=== PATIENT | female | born 1965 | race Caucasian/White ===

== ENCOUNTER 2021-01-03 09:47 | Outpatient (REF) | payer OTHER, SELFPAY ==
--- NOTE | ~2021-01-03 | MM_ITS ---
EXAMINATION: MM SCREENING DIGITAL BREAST TOMOSYNTHESIS, BILATERAL CLINICAL INFORMATION: Screening. Asymptomatic. The lifetime risk of breast cancer based on the Tyrer-Cuzick Model is 10.0%. COMPARISON: Mammography: July 21, 2019 and studies dating back to January 16, 2015 TECHNIQUE: Digital breast tomosynthesis is performed in both the craniocaudal and mediolateral oblique views along with computer-aided detection (CAD). Synthesized 2D images are generated from the tomosynthesis. Additional right breast exaggerated craniocaudal view performed. FINDINGS: The breasts are heterogeneously dense, which may obscure small masses (ACR BI-RADS breast composition Category c). There are no significant masses, abnormal calcifications, or other abnormalities. MM/MM tomosynthesis screening BI IMPRESSION: There are no significant changes from prior study. ASSESSMENT: BI-RADS 1: Negative RECOMMENDATION: Routine annual mammography screening. This patient's information was entered into a reminder system with a target due date for their next mammogram.
== END 2021-01-03 09:48 | disposition home or self-care (01) ==
LOC: HO.MAMMO 09:47
PROVIDERS: PCP Physician Assistant; Visit Provider Family Medicine
DX: Z12.31 Encounter for screening mammogram for malignant neoplasm of breast (principal)
CPT/HCPCS: 77063; 77067

== ENCOUNTER 2021-09-06 06:24 | Outpatient (REF) | payer OTHER, SELFPAY ==
[2021-09-06 06:50] LABS: MANUAL DIFF FLAG NO
[2021-09-06 07:37] LABS: Basophils Absolute Auto 0.1 X10*3/uL (0.0-0.2); Basophils Percent Auto 1.4 % (0-2); Eosinophils Absolute Auto 0.2 X10*3/uL (0.0-0.4); Eosinophils Percent Auto 5.1 % (0-4); Hematocrit 34.8 % (37.0-47.0); Hemoglobin 10.9 g/dl (12.0-16.0); Imm Gran Abs Auto 0.01 X10*3/uL (0.00-0.03); Imm Gran Pct Auto 0.3 % (0.0-0.4); Lymphocytes Absolute Auto 1.5 X10*3/uL (1.2-4.9); Lymphocytes Percent Auto 42.4 % (20-40); Mean Corpuscular HGB Conc 31.3 g/dl (31.0-35.0); Mean Corpuscular Hemoglobin 29.2 pg (27.0-33.0); Mean Corpuscular Volume 93.3 fL (80.0-98.0); Mean Platelet Volume 8.6 fL (9.4-12.3); Monocytes Absolute Auto 0.4 X10*3/uL (0.1-1.2); Monocytes Percent Auto 10.5 % (2-11); Neutrophils Absolute Auto 1.4 x10*3/uL (2.0-8.3); Neutrophils Percent Auto 40.3 % (45-73); Platelet Count 339 X10*3/uL (160-400); Red Blood Count 3.73 X10*6/uL (4.20-5.50); Red Cell Distribution Width 12.4 % (11.0-16.0); White Blood Count 3.5 X10*3/uL (4.8-10.8)
[2021-09-06 07:44] LABS: Estimated Average Glucose 105 mg/dL; Hemoglobin A1c % 5.3 %
[2021-09-06 07:58] LABS: Alanine Aminotransferase 36 U/L (0-31); Albumin Level 3.9 g/dL (3.5-5.0); Alkaline Phosphatase 82 U/L (39-117); Anion Gap 10 (12-20); Aspartate Amino Transferase 34 U/L (5-31); Bilirubin Total 0.4 mg/dL (0.0-1.0); Blood Urea Nitrogen 25 mg/dL (9-16); Calcium 9.3 mg/dL (8.4-10.2); Carbon Dioxide 27 mmol/L (22-29); Chloride 108 mmol/L (96-108); Cholesterol 272 mg/dL; Estimated Glomerular Filt Rate > 60; Glucose Fasting 90 mg/dL (60-99); HDL Cholesterol 84 mg/dL; LDL Cholesterol Calculated 175 mg/dl; Potassium 4.6 mmol/L (3.3-5.1); Sodium 140 mmol/L (135-145); Total Protein 7.2 g/dL (6.5-8.0); Triglycerides 69 mg/dL
[2021-09-06 08:16] LABS: TSH reflex Free T4 1.74 uIU/mL (0.32-4.0)
[2021-09-07 08:56] LABS: Follicle Stimulating Hormone 76.8 mIU/mL; Lutenizing Hormone 30.6 mIU/mL
== END 2021-09-06 06:25 | disposition home or self-care (01) ==
LOC: HO.LAB 06:24
PROVIDERS: PCP Family Medicine; Visit Provider Family Medicine
DX: Z00.00 Encounter for general adult medical examination without abnormal findings (principal); R73.01 Impaired fasting glucose; Z78.0 Asymptomatic menopausal state
CPT/HCPCS: 36415; 80053; 80061; 82672; 83001; 83002; 83036; 84443; 85025

== ENCOUNTER 2021-10-09 13:40 | Outpatient (REF) | payer OTHER, SELFPAY ==
--- NOTE | ~2021-10-09 | MM_ITS ---
EXAMINATION: BONE DENSITOMETRY CLINICAL INDICATION: Encounter for screening for osteoporosis. Postmenopausal. COMPARISON: None (current study represents initial baseline exam). TECHNIQUE: Using a [employer] DXA System (software version: 13.1) manufactured by [employer], dual-energy x-ray absorptiometry was performed of the lumbar spine and left hip. The images are of good technical quality. Summary results are attached. FINDINGS: AP SPINE L1-L4: BMD 1.021 g/cm2, Z-score -1.0, T-score -1.3, osteopenia. LEFT FEMUR, NECK: BMD 0.853 g/cm2, Z-score -0.6, T-score -1.3, osteopenia. LEFT FEMUR, TOTAL: BMD 0.978 g/cm2, Z-score 0.1, T-score -0.2, normal. IDENTIFIED RISK FACTORS: Menopause. HISTORY OF FRACTURE: None listed. MEDICATIONS: Vitamin D. MM/XR DEXA axial skeleton IMPRESSION: 1. DIAGNOSIS: Osteopenia based on the lowest T-score value of -1.3 in the lumbar spine femoral neck applying World Health Organization criteria. 2. 10-YEAR FRACTURE RISK PREDICTION, FRAX: Major osteoporotic fracture (clinical spine, forearm, hip or shoulder) 6.6%. Hip fracture 0.4%. 3. Treatment Recommendations: NOF guidelines recommend consideration for treatment in postmenopausal women and men age 50 and older presenting with the following: -A hip or vertebral (clinical or morphometric) fracture. -T-score less than or equal to -2.5 at the femoral neck or spine after appropriate evaluation to exclude secondary causes. -Low bone mass at the hip or spine and a 10-year fracture probability by FRAX of greater than or equal to 3% for hip fracture or greater than or equal to 20% for major osteoporotic fracture based on the [place] adapted WHO algorithm. 4. Other Recommendations: All treatment decisions require clinical judgment and consideration of individual patient factors, including patient preferences, comorbidities, previous drug use, risk factors not captured in the FRAX model (e.g. frailty, falls, vitamin D deficiency, increased bone turnover, interval significant decline in bone density) and possible under or overestimation of fracture risk by FRAX. Additional medical evaluation for secondary cause of low bone mineral density may be appropriate. FUTURE SCAN RECOMMENDATION: People with diagnosed cases of osteoporosis or at high risk for fracture should have regular bone mineral density tests. For patients eligible for Medicare, routine testing is allowed once every 2 years. The testing frequency can be increased to one year for patients who have rapidly progressing disease, those who are receiving or discontinuing medical therapy to restore bone mass, or have additional risk factors.
== END 2021-10-09 13:41 | disposition home or self-care (01) ==
LOC: HO.MAMMO 13:40
PROVIDERS: PCP Family Medicine; Visit Provider Family Medicine
DX: Z13.820 Encounter for screening for osteoporosis (principal); Z78.0 Asymptomatic menopausal state
CPT/HCPCS: 77080

== ENCOUNTER 2021-11-05 08:15 | Outpatient (REF) | payer OTHER, SELFPAY ==
--- NOTE | ~2021-11-05 | US_ITS ---
EXAMINATION: US ABDOMEN LIMITED WITH LIVER ELASTOGRAPHY CLINICAL INFORMATION: Abnormal serum enzyme levels. COMPARISON: None. TECHNIQUE: Real-time imaging of the abdominal viscera. Noninvasive ultrasound liver fibrosis assessment is performed using Orin Elast[employer] point quantification shear wave elastography (2D-SWE) with a C5-2 MHz transducer. Multiple elastography samples are obtained. FINDINGS: PANCREAS: Normal. The visualized pancreatic head and body are normal in appearance. The remainder of the pancreas is obscured from visualization by the overlying bowel gas. LIVER: Normal. The liver demonstrates normal size, contour and echogenicity. No focal lesion or intrahepatic biliary duct dilatation. The right lobe measures 16.6 cm in length. The left lobe measures 10.5 cm in length. Portal flow is towards the liver (hepatopetal). Shear wave liver elastography median stiffness is 1.63 m/s (reference: normal median stiffness is 1.3 m/s or less). IQR/median stiffness to assess sampling precision is 0.10 (reference: good quality data set is IQR/median stiffness of 0.15 or less). GALLBLADDER: Normal. The gallbladder is physiologically distended without evidence of stones, sludge, polyps, wall thickening or pericholecystic fluid. COMMON BILE DUCT: Normal in caliber measuring 0.4 cm in diameter. RIGHT KIDNEY: Normal. No hydronephrosis. No renal calculi or focal parenchymal lesions. The kidney measures 9.5 cm in maximum dimension. FREE FLUID: None. US/US abdomen garcia w elastography IMPRESSION: Liver elastography: In the absence of other known clinical signs, measurements rule out compensated advanced chronic liver disease. If there are known clinical signs, further testing may be needed for confirmation. REFERENCE: Society of Radiologists in Ultrasound Liver Stiffness Thresholds (2020): LIVER STIFFNESS THRESHOLDS: *Liver Stiffness equal or less than 1.3 m/s: High probability of being normal. *Liver Stiffness less than 1.7 m/s: In the absence of other known clinical signs, rules out compensated advanced chronic liver disease. *Liver Stiffness 1.7-2.1 m/s: Suggestive of compensated advanced chronic liver disease but need further test for confirmation. *Liver Stiffness over 2.1 m/s: Rules in compensated advanced chronic liver disease. *Liver Stiffness over 2.4 m/s: Suggestive of clinically significant portal hypertension. QUALITY OF DATA SET: *IQR/Median value equal or less than 0.15 implies a quality data set. *IQR/Median value over 0.15 implies a poor quality data set. SIGNIFICANT CHANGE FROM PRIOR EXAM: Significant change if liver stiffness measurement is 10% or greater from prior exam. OTHER CONSIDERATIONS: The stage of liver fibrosis may be overestimated in the setting of acute hepatitis, liver inflammation, elevated liver function tests, hepatic vascular congestion, obstructive cholestasis, non-fasting state, and infiltrative diseases such as amyloidosis and lymphoma. In some patients with NAFLD, the liver stiffness thresholds for compensated advanced chronic liver disease may be lower. In causes other than viral hepatitis and NAFLD, liver stiffness thresholds are not well established.
== END 2021-11-05 08:16 | disposition home or self-care (01) ==
LOC: HO.US 08:15
PROVIDERS: Visit Provider Family Medicine
DX: R74.8 Abnormal levels of other serum enzymes (principal)
CPT/HCPCS: 76705; 76981

== ENCOUNTER 2021-12-05 06:21 | Outpatient (REF) | payer OTHER, SELFPAY ==
[2021-12-05 06:40] LABS: MANUAL DIFF FLAG NO
[2021-12-05 07:25] LABS: Basophils Absolute Auto 0.1 X10*3/uL (0.0-0.2); Basophils Percent Auto 1.6 % (0-2); Eosinophils Absolute Auto 0.2 X10*3/uL (0.0-0.4); Eosinophils Percent Auto 4.1 % (0-4); Hematocrit 35.7 % (37.0-47.0); Hemoglobin 11.5 g/dl (12.0-16.0); Imm Gran Abs Auto 0.01 X10*3/uL (0.00-0.03); Imm Gran Pct Auto 0.3 % (0.0-0.4); Immature Retic Fraction 11.8 % (3.0-15.9); Lymphocytes Absolute Auto 1.8 X10*3/uL (1.2-4.9); Lymphocytes Percent Auto 48.2 % (20-40); Mean Corpuscular HGB Conc 32.2 g/dl (31.0-35.0); Mean Corpuscular Hemoglobin 30.2 pg (27.0-33.0); Mean Corpuscular Volume 93.7 fL (80.0-98.0); Mean Platelet Volume 8.9 fL (9.4-12.3); Monocytes Absolute Auto 0.4 X10*3/uL (0.1-1.2); Monocytes Percent Auto 9.8 % (2-11); Neutrophils Absolute Auto 1.3 x10*3/uL (2.0-8.3); Platelet Count 336 X10*3/uL (160-400); Red Blood Count 3.81 X10*6/uL (4.20-5.50); Red Cell Distribution Width 12.4 % (11.0-16.0); Retic HGB Equivalent 34.4 pg (30.0-35.0); Reticulocyte Percent 1.4 % (0.5-1.8); Reticulocytes Absolute 0.052 X10*6/uL (0.026-0.095); White Blood Count 3.7 X10*3/uL (4.8-10.8)
[2021-12-05 07:43] LABS: Alanine Aminotransferase 14 U/L (0-31); Alkaline Phosphatase 64 U/L (39-117); Anion Gap 11 (12-20); Aspartate Amino Transferase 25 U/L (5-31); Bilirubin Total 0.3 mg/dL (0.0-1.0); Blood Urea Nitrogen 17 mg/dL (9-16); Calcium 9.3 mg/dL (8.4-10.2); Carbon Dioxide 26 mmol/L (22-29); Chloride 108 mmol/L (96-108); Cholesterol 268 mg/dL; Estimated Glomerular Filt Rate 53; Glucose Random 97 mg/dL (60-115); HDL Cholesterol 80 mg/dL; LDL Cholesterol Calculated 173 mg/dl; Potassium 4.8 mmol/L (3.3-5.1); Sodium 140 mmol/L (135-145); Total Protein 7.3 g/dL (6.5-8.0); Triglycerides 75 mg/dL
== END 2021-12-05 06:22 | disposition home or self-care (01) ==
LOC: HO.LAB 06:21
PROVIDERS: PCP Family Medicine; Visit Provider Family Medicine
DX: Z00.00 Encounter for general adult medical examination without abnormal findings (principal); D64.9 Anemia, unspecified; R74.8 Abnormal levels of other serum enzymes; E78.00 Pure hypercholesterolemia, unspecified
CPT/HCPCS: 36415; 80053; 80061; 85025; 85045

== ENCOUNTER 2022-04-22 09:51 | Outpatient (REF) | payer OTHER, SELFPAY ==
[2022-04-25 03:36] LABS: HPV mRNA E6/E7 rflx Not Detected (Not Detected)
== END 2022-04-22 09:52 | disposition home or self-care (01) ==
LOC: HO.LNP 09:51
PROVIDERS: Visit Provider Obstetrics & Gynecology
DX: Z01.419 Encounter for gynecological examination (general) (routine) without abnormal findings (principal); Z11.51 Encounter for screening for human papillomavirus (HPV)
CPT/HCPCS: 87624; 88142

== ENCOUNTER 2022-06-10 06:41 | Outpatient (REF) | payer OTHER, SELFPAY ==
[2022-06-10 06:53] LABS: MANUAL DIFF FLAG NO
[2022-06-10 07:35] LABS: Basophils Absolute Auto 0.1 X10*3/uL (0.0-0.2); Basophils Percent Auto 1.6 % (0-2); Eosinophils Absolute Auto 0.1 X10*3/uL (0.0-0.4); Eosinophils Percent Auto 3.7 % (0-4); Hematocrit 34.9 % (37.0-47.0); Hemoglobin 11.2 g/dl (12.0-16.0); Imm Gran Abs Auto 0.01 X10*3/uL (0.00-0.03); Imm Gran Pct Auto 0.3 % (0.0-0.4); Lymphocytes Absolute Auto 1.6 X10*3/uL (1.2-4.9); Lymphocytes Percent Auto 42.7 % (20-40); Mean Corpuscular HGB Conc 32.1 g/dl (31.0-35.0); Mean Corpuscular Hemoglobin 29.5 pg (27.0-33.0); Mean Corpuscular Volume 91.8 fL (80.0-98.0); Mean Platelet Volume 8.7 fL (9.4-12.3); Monocytes Absolute Auto 0.4 X10*3/uL (0.1-1.2); Neutrophils Absolute Auto 1.6 x10*3/uL (2.0-8.3); Neutrophils Percent Auto 40.7 % (45-73); Platelet Count 326 X10*3/uL (160-400); Red Cell Distribution Width 12.5 % (11.0-16.0); White Blood Count 3.8 X10*3/uL (4.8-10.8)
[2022-06-10 07:55] LABS: Alanine Aminotransferase 15 U/L (0-31); Albumin Level 4.1 g/dL (3.5-5.0); Alkaline Phosphatase 64 U/L (39-117); Anion Gap 12 (12-20); Aspartate Amino Transferase 25 U/L (5-31); Bilirubin Total 0.2 mg/dL (0.0-1.0); Blood Urea Nitrogen 17 mg/dL (9-16); Calcium 9.8 mg/dL (8.4-10.2); Carbon Dioxide 25 mmol/L (22-29); Chloride 110 mmol/L (96-108); Estimated Glomerular Filt Rate > 60; Glucose Random 93 mg/dL (60-115); Iron 51 mcg/dL (30-160); Percent Iron Saturation 19 % (15-50); Potassium 4.8 mmol/L (3.3-5.1); Sodium 142 mmol/L (135-145); Total Iron Binding Capacity 275 mcg/dL (228-428); Total Protein 7.2 g/dL (6.5-8.0); Unsaturated Iron Binding 224 ug/dL
== END 2022-06-10 06:42 | disposition home or self-care (01) ==
LOC: HO.LAB 06:41
PROVIDERS: PCP Family Medicine; Visit Provider Family Medicine
DX: Z00.00 Encounter for general adult medical examination without abnormal findings (principal); D64.9 Anemia, unspecified
CPT/HCPCS: 36415; 80053; 83540; 85025

== ENCOUNTER 2022-10-03 11:09 | Outpatient (REF) | payer OTHER, SELFPAY ==
--- NOTE | ~2022-10-03 | MM_ITS ---
EXAMINATION: MM SCREENING DIGITAL BREAST TOMOSYNTHESIS, BILATERAL CLINICAL INFORMATION: Screening. Asymptomatic. The lifetime risk of breast cancer based on the Tyrer-Cuzick Model is 9%. COMPARISON: Mammography: 01/03/2021, 07/21/2019, 09/29/2016 TECHNIQUE: Digital breast tomosynthesis is performed in both the craniocaudal and mediolateral oblique views along with computer-aided detection (CAD). Synthesized 2D images are generated from the tomosynthesis. FINDINGS: There are scattered areas of fibroglandular density (ACR BI-RADS breast composition Category b). There is increased parenchymal density posterior outer right breast on CC view, likely summation artifact or incompletely compressed glandular tissue. No MLO correlate. Patient will be recalled for additional imaging. Otherwise, the breast parenchymal pattern is similar to prior studies. There are some scattered chronic asymmetries. No developing density or architectural abnormality. No significant mass or abnormal calcifications. The axilla are unremarkable. MM/MM tomosynthesis screening BI IMPRESSION: Right: -Asymmetric density posterior outer breast on CC view, likely summation artifact or incompletely compressed glandular tissue. Left: -No mammographic evidence of malignancy. ASSESSMENT: BI-RADS 0: Incomplete - Need Additional Imaging Evaluation RECOMMENDATION: 1. Additional views right breast (exaggerated CC). 2. Targeted ultrasound if warranted after review of the additional views. 3. Radiology department staff will contact the patient for additional imaging. This patient's information was entered into a reminder system with a target due date for their next mammogram.
== END 2022-10-03 11:10 | disposition home or self-care (01) ==
LOC: HO.MAMMO 11:09
PROVIDERS: PCP Family Medicine; Visit Provider Family Medicine
DX: Z12.31 Encounter for screening mammogram for malignant neoplasm of breast (principal)
CPT/HCPCS: 77063; 77067

== ENCOUNTER 2022-10-06 06:18 | Outpatient (REF) | payer OTHER, SELFPAY ==
[2022-10-06 06:25] LABS: MANUAL DIFF FLAG NO
[2022-10-06 07:44] LABS: Basophils Absolute Auto 0.1 X10*3/uL (0.0-0.2); Basophils Percent Auto 1.3 % (0-2); Eosinophils Absolute Auto 0.2 X10*3/uL (0.0-0.4); Hematocrit 35.4 % (37.0-47.0); Hemoglobin 11.3 g/dl (12.0-16.0); Imm Gran Abs Auto 0.01 X10*3/uL (0.00-0.03); Imm Gran Pct Auto 0.3 % (0.0-0.4); Lymphocytes Absolute Auto 1.9 X10*3/uL (1.2-4.9); Lymphocytes Percent Auto 48.8 % (20-40); Mean Corpuscular HGB Conc 31.9 g/dl (31.0-35.0); Mean Corpuscular Hemoglobin 29.7 pg (27.0-33.0); Mean Corpuscular Volume 93.2 fL (80.0-98.0); Mean Platelet Volume 8.8 fL (9.4-12.3); Monocytes Absolute Auto 0.4 X10*3/uL (0.1-1.2); Monocytes Percent Auto 11.6 % (2-11); NRBC Pct Auto 0.5 /100WBC (0.0-0.2); Neutrophils Absolute Auto 1.3 x10*3/uL (2.0-8.3); Platelet Count 335 X10*3/uL (160-400); Red Cell Distribution Width 12.7 % (11.0-16.0); White Blood Count 3.8 X10*3/uL (4.8-10.8)
[2022-10-06 08:12] LABS: Cholesterol 268 mg/dL; HDL Cholesterol 81 mg/dL; Iron 69 mcg/dL (30-160); LDL Cholesterol Calculated 174 mg/dl; Percent Iron Saturation 26 % (15-50); Total Iron Binding Capacity 269 mcg/dL (228-428); Triglycerides 66 mg/dL; Unsaturated Iron Binding 200 ug/dL
[2022-10-06 08:44] LABS: Vitamin B12 363 pg/mL (200-900)
== END 2022-10-06 06:19 | disposition home or self-care (01) ==
LOC: HO.LAB 06:18
PROVIDERS: PCP Family Medicine; Visit Provider Family Medicine
DX: Z00.00 Encounter for general adult medical examination without abnormal findings (principal); E53.8 Deficiency of other specified B group vitamins; D64.9 Anemia, unspecified
CPT/HCPCS: 36415; 80061; 82607; 82746; 83540; 85025

== ENCOUNTER 2022-10-14 08:24 | Outpatient (REF) | payer OTHER, SELFPAY ==
--- NOTE | ~2022-10-14 | MM_ITS ---
EXAMINATION: MM DIAGNOSTIC DIGITAL BREAST TOMOSYNTHESIS, RIGHT BREAST CLINICAL INFORMATION: Asymmetric density deep superior aspect of the right breast. COMPARISON: Mammography: 10/03/2022 and studies dating back to 01/16/2015. TECHNIQUE: Digital breast tomosynthesis is performed. 2D images are generated from the tomosynthesis. The following views are obtained: Right breast exaggerated craniocaudal view. FINDINGS: There are scattered areas of fibroglandular density (ACR BI-RADS breast composition Category b). The additional view demonstrates the tissue to spread out and have a similar appearance to prior studies. No persistent suspicious mass is appreciated. Stable circumscribed density about the anterior aspect of the right breast again seen. Results are provided to the patient at time of visit by the technologist. MM/MM tomosynthesis added views R IMPRESSION: No persistent suspicious right breast mass. ASSESSMENT: BI-RADS 1: Negative. RECOMMENDATION: Routine annual mammography screening. This patient's information was entered into a reminder system with a target due date for their next mammogram.
== END 2022-10-14 08:25 | disposition home or self-care (01) ==
LOC: HO.MAMMO 08:24
PROVIDERS: PCP Family Medicine; Visit Provider Family Medicine
DX: R92.2 Inconclusive mammogram (principal)
CPT/HCPCS: 77061; 77065

== ENCOUNTER 2023-04-28 07:30 | Outpatient (REF) | payer OTHER, SELFPAY ==
[2023-04-28 07:48] LABS: MANUAL DIFF FLAG NO
[2023-04-28 07:57] LABS: Basophils Absolute Auto 0.1 X10*3/uL (0.0-0.2); Basophils Percent Auto 1.2 % (0-2); Eosinophils Absolute Auto 0.2 X10*3/uL (0.0-0.4); Eosinophils Percent Auto 3.7 % (0-4); Hematocrit 35.9 % (37.0-47.0); Hemoglobin 11.8 g/dl (12.0-16.0); Imm Gran Abs Auto 0.01 X10*3/uL (0.00-0.03); Imm Gran Pct Auto 0.2 % (0.0-0.4); Immature Retic Fraction 6.9 % (3.0-15.9); Lymphocytes Absolute Auto 1.8 X10*3/uL (1.2-4.9); Mean Corpuscular HGB Conc 32.9 g/dl (31.0-35.0); Mean Corpuscular Hemoglobin 31.1 pg (27.0-33.0); Mean Corpuscular Volume 94.5 fL (80.0-98.0); Mean Platelet Volume 8.9 fL (9.4-12.3); Monocytes Absolute Auto 0.4 X10*3/uL (0.1-1.2); Monocytes Percent Auto 10.8 % (2-11); Neutrophils Absolute Auto 1.7 x10*3/uL (2.0-8.3); Neutrophils Percent Auto 41.1 % (45-73); Platelet Count 289 X10*3/uL (160-400); Red Cell Distribution Width 12.2 % (11.0-16.0); Retic HGB Equivalent 35.5 pg (30.0-35.0); Reticulocyte Percent 1.1 % (0.5-1.8); Reticulocytes Absolute 0.041 X10*6/uL (0.026-0.095); White Blood Count 4.1 X10*3/uL (4.8-10.8)
[2023-04-28 08:34] LABS: Alanine Aminotransferase 14 U/L (0-31); Albumin Level 4.1 g/dL (3.5-5.0); Alkaline Phosphatase 61 U/L (39-117); Anion Gap 13 (12-20); Aspartate Amino Transferase 27 U/L (5-31); Bilirubin Total 0.4 mg/dL (0.0-1.0); Blood Urea Nitrogen 10 mg/dL (9-16); Calcium 9.9 mg/dL (8.4-10.2); Carbon Dioxide 25 mmol/L (22-29); Chloride 109 mmol/L (96-108); Cholesterol 164 mg/dL (<200); Estimated Glomerular Filt Rate > 60; Glucose Fasting 93 mg/dL (60-99); HDL Cholesterol 69 mg/dL (>40); Iron 64 mcg/dL (30-160); LDL Cholesterol Calculated 83 mg/dL (<100); Percent Iron Saturation 26 % (15-50); Potassium 4.8 mmol/L (3.3-5.1); Sodium 142 mmol/L (135-145); Total Iron Binding Capacity 243 mcg/dL (228-428); Total Protein 7.6 g/dL (6.5-8.0); Triglycerides 63 mg/dL (<150); Unsaturated Iron Binding 179 ug/dL
[2023-04-28 08:51] LABS: Ferritin 65 ng/mL (10-250); TSH reflex Free T4 1.83 uIU/mL (0.32-4.0)
[2023-04-28 08:58] LABS: Appearance Urine Clear; Color Urine Yellow; Glucose Urine UA Negative (Negative); Leukocyte Esterase Urine Negative (Negative); Nitrite Urine Negative (Negative); PH 7.5 (5.0-9.0); UMIC TRIGGER UA YES; Urine Blood Small (1+) (Negative); Urine Ketones Negative (Negative); Urine Protein Negative (Neg-Trace)
[2023-04-28 08:59] LABS: Folate 11.4 ng/mL (> or = 4.0); Vitamin B12 367 pg/mL (200-900)
[2023-04-28 09:05] LABS: Bacteria Urine None Seen (None Seen); Hyaline Casts Urine 0-2 /LPF (0-2); Squamous Epithelial Cell Urine 0-2 /HPF (0-2); WBC Urine 0-5 /HPF (0-5)
[2023-04-28 09:44] LABS: Creatinine Urine 171.64 mg/dL; Microalbum/Creatinine Ratio Ur 3.4 ug/mg cr (<30)
== END 2023-04-28 07:31 | disposition home or self-care (01) ==
LOC: HO.LAB 07:30
PROVIDERS: PCP Family Medicine; Visit Provider Family Medicine
DX: Z00.00 Encounter for general adult medical examination without abnormal findings (principal); E53.8 Deficiency of other specified B group vitamins; E78.00 Pure hypercholesterolemia, unspecified; I10 Essential (primary) hypertension; D64.9 Anemia, unspecified
CPT/HCPCS: 36415; 80053; 80061; 81001; 81003; 82043; 82570; 82607; 82728; 82746; 83540; 84443; 85025; 85045

== ENCOUNTER 2023-06-09 12:25 | Outpatient (AMB) | payer OTHER, SELFPAY ==
[2023-06-09 12:43] VITALS: BP 112/72; BMI 28.6
--- NOTE | 2023-06-09 12:43 | A.OFFVIS_ITS ---
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 No complaints. Last Pap/HPV was negative in 04/19 Last Mammogram was BI-RADS 1 in 10/19 Last Colonoscopy was at age of 49, the recommendation was to repeat at the age of 59 [facility] Medical History Vitamin D deficiency Exercise-induced asthma Atypical chest pain Surgical History History of tonsillectomy Family History Mother Mental problem Father Mental problem Substance abuse Social History Housing: House Alcohol intake: never Patient Tobacco Use Status: Former Tobacco user e-Cigarette/Vaping Use: Never Used Second Hand Smoke Exposure: Yes service: No Current occupational status: employed 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 Cognitive needs: No Hearing needs: No Vision needs: No Female Reproductive History Menstrual Age of Menarche: 11 Duration of menses: 3-5 days control method: none Total pregnancies: 0 History of abnormal pap smear: No (unknown) Review of Systems Const All systems reviewed & are unremarkable except as noted in HPI and below Card Reports as per HPI Resp Reports as per HPI GI Reports as per HPI and Reports no additional complaints Reports as per HPI Physical Exam Vital Signs: Last Vital Signs BP 112/72 06/09/23 12:43 BMI result Body Mass Index 28.6 Const General: cooperative, healthy appearing and comfortable Chest Chest palpation & inspection: normal inspection of the chest and normal palpation of entire chest wall Breast/axilla inspection: normal inspection of the breasts and normal inspection of the axillae Breast/axilla palpation: normal palpation of the breasts, normal palpation of the axillae and no axillary lymphadenopathy Resp Effort & Inspection: normal respiratory effort Auscultation: clear to auscultation bilaterally Percussion: percussion normal Cardio Palpation: normal PMI Rate: regular rate Rhythm: regular rhythm Heart sounds: no murmurs and no rubs Peripheral pulses: Peripheral pulses 2+ throughout GI Inspection: Yes normal to inspection Palpation (GI): Soft to palpation, nontender, no guarding, not rigid and No hepatosplenomegaly present Percussion: Yes normal to percussion Auscultation: normal bowel sounds Rectal Exam - Female: deferred General: Yes bladder normal to palpation External Female Exam: No lesion Speculum Exam - Vagina: normal appearance of the vagina, normal palpation, normal vaginal discharge and not erythematous Speculum Exam - Cervix: normal appearance of the cervix and normal palpation Bimanual exam- vagina & uterus: normal bimanual exam, normal palpation, uterine size normal, bladder normal to palpation, consistency normal and normal palpation Bimanual Exam- Adnexa, other: normal adnexae, no masses and no tenderness Assessment & Plan Assessment & Plan (1) Well woman exam: Code(s): Z01.419 - Encounter for gynecological examination (general) (routine) without abnormal findings Plan: Co testing not indicated this year. Counseled the patient about the recommended dietary allowance of 1200 mg of Calcium & 600 IU of vitamin D. Instructions given the patient to schedule next screening Mammogram in 10/20. The patient was instructed to perform monthly self-breast exams and schedule annual exam in a year. All questions answered and the patient verbalized understanding. Coding Level of Care Code Est Pt Prev Care 40-64y(65599) Diagnoses Well woman exam Z01.419
== END 2023-06-09 12:55 | disposition home or self-care (01) ==
PROVIDERS: Visit Provider Obstetrics & Gynecology
DX: Z01.419 Encounter for gynecological examination (general) (routine) without abnormal findings (principal)
CPT/HCPCS: 99396

== ENCOUNTER → 2023-06-09 12:25 | Outpatient (BNVA) | payer OTHER, SELFPAY | PROVIDERS: Visit Provider Obstetrics & Gynecology ==

== ENCOUNTER 2023-06-19 13:50 | Outpatient (AMB) | payer OTHER, SELFPAY ==
--- NOTE | 2023-06-19 13:30 | MHC.PC.OV ---
Vital Signs 06/19/23 13:32 Height 5 ft 6 in Weight 168 lb 4 oz BMI 27.2 Intake Visit Reasons: f/u labs Intake Note: Patient is ready for their phone visit to discuss labs. Patient requested SURVEY INTERVIEWER updated their weight in their chart as well. Patient reports weight to be 168.4. 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 Labs were drawn 04/28/23. Reviewed labs with pt. Ongoing mild anemia. Triglycerides 63. TC 164. LDL 83. HDL 69. She is on artovastatin 20mg. 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 Angel Tolbert, Thelma Townsend, David Francisco and colleagues, with an educational adrianna from [employer]. Review of Systems Const Denies chills, Denies fatigue, Denies fever(s), Denies headache(s) and Denies weakness ENT Denies dizziness and Denies headache(s) Card Denies dyspnea Resp Denies cough, Denies dyspnea, Denies wheezing and Denies other (shortness of breath) Musc Denies numbness and Denies tingling Neuro Denies dizziness, Denies headache(s), Denies numbness, Denies tingling and Denies weakness Psych Denies anxiety and Denies depression Endo Denies fatigue Aller/Immun Denies wheezing Physical exam (Primary Care) Tobacco/Smoking Status: Tobacco use Status Tobacco use date assessed 06/19/23 06/19/23 13:33 Patient Tobacco Use Status Former Tobacco user 06/19/23 13:33 e-Cigarette/Vaping Use Never Used 06/19/23 13:33 Thrive Assessment: Date of Thrive Assessment Date Thrive assessed 07/30/21 06/19/23 13:33 Telehealth Telehealth Location of provider rendering services: practice address Location of patient: address on file Patient Identification confirmed using: Name, : Yes Telehealth method: voice only Patient verbally consented to treatment: Yes Patient verbally consented to billing insurance company: Yes Patient informed of any privacy concerns related to visit: Yes Minutes spent on Phone/Video with Pt.: 14 Assessment and Plan Assessment & Plan (1) Mild anemia: Code(s): D64.9 - Anemia, unspecified Plan: Mild?but?improving?normocytic?anemia Iron?stores?are?normal?but?she?is?taking?iron Encouraged?her?to?continue?this We?can?follow (2) Hypercholesterolemia: Code(s): E78.00 - Pure hypercholesterolemia, unspecified Plan: Lipids?all?within?normal?limits?now?on?atorvastatin Continue?atorvastatin Coding Level of Care Code Tele Est Pt Level 2 (51975) Diagnoses Mild anemia D64.9 Hypercholesterolemia E78.00
[2023-06-19 13:32] VITALS: BMI 27.2
== END 2023-06-19 15:06 | disposition home or self-care (01) ==
PROVIDERS: PCP Family Medicine; Visit Provider Family Medicine
DX: D64.9 Anemia, unspecified (principal); E78.00 Pure hypercholesterolemia, unspecified
CPT/HCPCS: 99442

== ENCOUNTER 2023-08-10 13:53 | Outpatient (AMB) | payer OTHER, SELFPAY ==
[2023-08-10 14:11] VITALS: BP 120/72; PULSE 69; TEMP 37.1; O2SAT 100; BMI 27.6
--- NOTE | 2023-08-10 14:11 | A.OFFPC_ITS ---
Vital Signs 08/10/23 14:11 Height 5 ft 6 in Weight 171 lb 3 oz BMI 27.6 BP 120/72 Blood Pressure Location Lt brachial Position Sitting Pulse 69 Pulse Source Pulse Oximeter Temp 98.7 F Temp Source Oral Pulse Oximetry (%) 100 Oxygen Delivery Method Room Air Intake Visit Reasons: CPE with f/u labs and health maint. Intake Note: Patient is here for physical today. Allergies kiwi [KIWI] Allergy (Severe, Verified 08/10/23 14:12) THROAT SWELLING artur [ARTUR] Allergy (Severe, Verified 08/10/23 14:12) THROAT SWELLING pineapple [PINEAPPLE] Allergy (Severe, Verified 08/10/23 14:12) THROAT SWELLING Tobacco use date assessed: 06/19/23 HPI CPE with f/u labs and health maint. HPI Details 57 y/o female presents for a CPE with f/ u labs and health maintenance. Labs were drawn 04/28/23. Reviewed labs with pt. Mild anemia. Triglycerides 63. TC 164. LDL 83. HDL 69. 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 1. Little interest or pleasure in doing things: not at all 2. Feeling down, depressed, or hopeless: not at all 3. Trouble falling or staying asleep, or sleeping too much: not at all 4. Feeling tired or having little energy: not at all 5. Poor appetite or overeating: not at all 6. Feeling bad about yourself - or that you are a failure or have let yourself or your family down: not at all 7. Trouble concentrating on things, such as reading the newspaper or watching television: not at all 8. Moving or speaking so slowly that other people could have noticed. Or the opposite - being so fidgety or restless that you have been moving around a lot more than usual: not at all 9. Thoughts that you would be better off or of hurting yourself in some way: not at all Total score: 0 Depression Screening Interpretation: Negative Depression Screening Done: Yes Source: Developed by Drs. Angel Tolbert, Thelma Townsend, David Francisco and colleagues, with an educational adrianna from [employer]. Thrive Questionnaire Date Thrive assessed: 08/10/23 I am a: Patient What is your living situation today?: I have a steady place to live Within the past 12 months, did the food you bought not last and you didn't have the money to get more?: Never true Within the past 12 months, did you worry whether your food would run out before you got money to buy more?: Never true Do you have trouble paying for medicines?: No Do you have trouble getting transportation to medical appointments?: No Do you have trouble paying your heating and electricity bill?: No Do you have trouble taking care of your child, family member or friend?: No Do you have trouble with day-to-day activities such as bathing, preparing meals, shopping, managing finances, etc.?: No Are you currently unemployed and looking for a job?: No Are you interested in more education?: No THRIVE Score: 0 AUDIT C Alcohol Use Questionnaire (AUDIT-C) 1. How often do you have a drink containing alcohol?: Never 3. How often do you have six or more drinks on one occasion?: Never Total Score: 0 SENTHIL-7 AMB Questionnaire SENTHIL-7 Date SENTHIL - 7 assessed: 08/10/23 Feeling nervous, anxious, or on edge: 0 = Not at all Not being able to stop or control worryin = Not at all Worrying too much about different things: 0 = Not at all Trouble relaxin = Not at all Being so restless that it is hard to sit still: 0 = Not at all Becoming easily annoyed or irritable: 0 = Not at all Feeling afraid as if something awful might happen: 0 = Not at all Total SENTHIL-7 score (0-4 normal; 5-9 mild; 10-14 moderate; 15-21 severe): 0 Source: Developed by Drs. Agnel Tolbert, Thelma Townsend, David Fracnisco and colleagues, with an educational adrianna from [employer]. Physical exam (Primary Care) Vital Signs: Last Vital Signs Temp 98.7 F 08/10/23 14:11 Pulse 69 08/10/23 14:11 BP 120/72 08/10/23 14:11 Pulse Ox 100 08/10/23 14:11 Oxygen Delivery Method Room Air 08/10/23 14:11 BMI result Body Mass Index 27.6 Tobacco/Smoking Status: Tobacco use Status Tobacco use date assessed 06/19/23 08/10/23 14:14 Patient Tobacco Use Status Former Tobacco user 08/10/23 14:14 e-Cigarette/Vaping Use Never Used 08/10/23 14:14 PHQ-9: PHQ-9 Score PHQ-9: Total score 0 08/10/23 14:28 Depression Screening Interpretation: Negative Thrive Assessment: Date of Thrive Assessment Date Thrive assessed 08/10/23 08/10/23 14:21 Assessment and Plan Assessment & Plan (1) Adult general medical exam: Code(s): Z00.00 - Encounter for general adult medical examination without abnormal findings Plan: 57-year-old?female?presents?for?complete?physical?exam Exam?today?within?normal?limits She?is?lost?about?10?lb?and?I?congratulated?her?on?this Encouraged?healthy?diet?with?active?lifestyle?and?plenty?of?exercise (2) Hyperlipidemia: Code(s): E78.5 - Hyperlipidemia, unspecified Plan: Lipids?all?within?normal?limits?on?atorvastatin Continue?current?medication Continue?healthy?diet?and?weight?loss (3) Screening for cervical cancer: Code(s): Z12.4 - Encounter for screening for malignant neoplasm of cervix Plan: Pap?smear?last?month?and?negative Follow-up?with??Hyun?as?recommended (4) Screening for colon cancer: Code(s): Z12.11 - Encounter for screening for malignant neoplasm of colon Plan: Colonoscopy?age?49?and?advised?to?follow-up?at?age?59 Up-to-date She?thinks?[facility]. [place]er[place]back[place] [place]5) Breast cancer screening by mammogram: Code(s): Z12.31 - Encounter for screening mammogram for malignant neoplasm of breast Plan: Due?for?mammogram?in?September Order?is?available (6) Overweight (BMI 25.0-29.9): Code(s): E66.3 - Overweight Plan: Patient?is?working?on?weight?loss?and?has?lost?about?10?lb?since?last?year Encouraged?ongoing?weight?loss (7) Osteopenia: Code(s): M85.80 - Other specified disorders of bone density and structure, unspecified site Plan: Due?for?bone?density?test?in?September Ordered Orders: Orders MM tomosynthesis screening BI Today Z12.31 - Encounter for screening mammogram for malignant neoplasm of breast XR DEXA axial skeleton Today M81.0 - Age-related osteoporosis without current pathological fracture Coding Level of Care Code Est Pt Level 3 (40606) Est Pt Prev Care 40-64y(59377) Diagnoses Adult general medical exam Z00.00 Hyperlipidemia E78.5 Screening for cervical cancer Z12.4 Screening for colon cancer Z12.11 Breast cancer screening by mammogram Z12.31 Overweight (BMI 25.0-29.9) E66.3 Osteopenia M85.80
== END 2023-08-10 14:42 | disposition home or self-care (01) ==
PROVIDERS: PCP Family Medicine; Visit Provider Family Medicine
DX: Z00.00 Encounter for general adult medical examination without abnormal findings (principal); E78.5 Hyperlipidemia, unspecified; Z12.11 Encounter for screening for malignant neoplasm of colon; Z12.31 Encounter for screening mammogram for malignant neoplasm of breast; E66.3 Overweight; M85.80 Other specified disorders of bone density and structure, unspecified site
CPT/HCPCS: 99396

== ENCOUNTER 2023-10-16 07:26 | Outpatient (REF) | payer OTHER, SELFPAY ==
--- NOTE | ~2023-10-16 | MM_ITS ---
EXAMINATION: BONE DENSITOMETRY CLINICAL INDICATION: Age-related osteoporosis without current pathological fracture. COMPARISON: Baseline BD dated 10/09/2021. TECHNIQUE: Using a [employer] DXA System (software version: 13.1) manufactured by [employer], dual-energy x-ray absorptiometry was performed of the lumbar spine and left hip. The images are of good technical quality. Summary results are attached. FINDINGS: LEFT FEMUR, NECK: Current: BMD 0.897 g/cm2, Z-score -0.1, T-score -1.0, normal. Baseline: BMD 0.853 g/cm2. LEFT FEMUR, TOTAL: Current: BMD 0.976 g/cm2, Z-score 0.4, T-score -0.3, normal, 0.2% decrease from baseline (<5% change is not significant). Baseline: BMD 0.978 g/cm2. AP SPINE L1-L4: Current: BMD 0.985 g/cm2, Z-score -0.9, T-score -1.6, osteopenia, 3.5% decrease from baseline (<5% change is not significant). Baseline: BMD 1.021 g/cm2. IDENTIFIED RISK FACTORS: Menopause, history of fracture (adult). HISTORY OF FRACTURE: Other. MEDICATIONS: Calcium, vitamin D. MM/XR DEXA axial skeleton IMPRESSION: 1. DIAGNOSIS: Osteopenia based on the lowest T-score value of -1.6 in the lumbar spine applying World Health Organization criteria. 2. 10-YEAR FRACTURE RISK PREDICTION, FRAX: Major osteoporotic fracture (clinical spine, forearm, hip or shoulder) 11.8%. Hip fracture 0.7%. 3. Treatment Recommendations: NOF guidelines recommend consideration for treatment in postmenopausal women and men age 50 and older presenting with the following: -A hip or vertebral (clinical or morphometric) fracture. -T-score less than or equal to -2.5 at the femoral neck or spine after appropriate evaluation to exclude secondary causes. -Low bone mass at the hip or spine and a 10-year fracture probability by FRAX of greater than or equal to 3% for hip fracture or greater than or equal to 20% for major osteoporotic fracture based on the [place] adapted WHO algorithm. 4. Other Recommendations: All treatment decisions require clinical judgment and consideration of individual patient factors, including patient preferences, comorbidities, previous drug use, risk factors not captured in the FRAX model (e.g. frailty, falls, vitamin D deficiency, increased bone turnover, interval significant decline in bone density) and possible under or overestimation of fracture risk by FRAX. Additional medical evaluation for secondary cause of low bone mineral density may be appropriate. FUTURE SCAN RECOMMENDATION: People with diagnosed cases of osteoporosis or at high risk for fracture should have regular bone mineral density tests. For patients eligible for Medicare, routine testing is allowed once every 2 years. The testing frequency can be increased to one year for patients who have rapidly progressing disease, those who are receiving or discontinuing medical therapy to restore bone mass, or have additional risk factors.
== END 2023-10-16 07:27 | disposition home or self-care (01) ==
LOC: HO.MAMMO 07:26
PROVIDERS: PCP Family Medicine; Visit Provider Family Medicine
DX: Z12.31 Encounter for screening mammogram for malignant neoplasm of breast (principal); Z13.820 Encounter for screening for osteoporosis; M81.0 Age-related osteoporosis without current pathological fracture; Z78.0 Asymptomatic menopausal state
CPT/HCPCS: 77063; 77067; 77080

== ENCOUNTER → 2023-10-16 08:15 | Outpatient (BNV) | payer OTHER, SELFPAY | PROVIDERS: PCP Family Medicine; Visit Provider Radiology Diagnostic Radiology | DX: Z12.31 Encounter for screening mammogram for malignant neoplasm of breast (principal) | CPT/HCPCS: 77063; 77067 ==

== ENCOUNTER 2023-12-15 13:55 | Outpatient (AMB) | payer OTHER, SELFPAY ==
--- NOTE | 2023-12-15 13:47 | A.OFFPC_ITS ---
Intake Visit Reasons: F/U ED visit Intake Note: Patient is scheduled for follow up appointment from ED visit, with broken neck and ribs, Dr. Alvarez has a copy of the visit. Allergies kiwi [KIWI] Allergy (Severe, Verified 12/15/23 13:50) THROAT SWELLING artur [ARTUR] Allergy (Severe, Verified 12/15/23 13:50) THROAT SWELLING pineapple [PINEAPPLE] Allergy (Severe, Verified 12/15/23 13:50) THROAT SWELLING Tobacco use date assessed: 12/14/23 Dental Screening Dental Screen Date: 12/14/23 HPI F/U ED visit HPI Details Patient fell off ladder, 5-10 ft onto right side and was brought to [facility] by EMS with cervical collar. Complaints of right-sided chest pain. No head impact. No loss of consciousness. Right lower chest pain with deep inspiration. No pain in arms or legs and was able to move all limbs without difficulty or discomfort. C-collar was removed due to having no pain in head or neck and was able to move her neck without discomfort initially. Subsequent to presenting at the emergency department, she began having some neck pain. She was put back in a C-collar and CT scan of cervical spine showed comminuted C7 vertebral body fracture extending into anterior column.. CT of chest showed 2 small rib fractures (R 6th & 7th rib). Intervention: C-Spine collar. Referral to Ortho surgeon. Rib fractures did not require intervention except for pain control. Patient?was?apparently?discharged?that?day?an d?returned?on?the?following?day?with?pain?and?nausea. She?was?ambulating?in?otherwise?mobile?so?was?given?pain?medication?and?Zofran.? ?Discharged?same?day. Referral to Ortho Dr Drake Gonzalez ?sp. next day. Has f/u this Thursday. [facility] for more Xrays and will have 2 wk xray. Current?pain?control is good off of Tylenol now. Except R latisimus strain. Good mobility of Arms/Legs. Gabapentin? Physical?therapy after 6-12 weeks depending on healing. 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 Current occupational exposures/hazards: Yes Cognitive needs: No Hearing needs: No Vision needs: No Female Reproductive History Menstrual Age of Menarche: 11 Questionnaire Thrive Questionnaire Date Thrive assessed: 12/14/23 SENTHIL-7 AMB Questionnaire SENTHIL-7 Date SENTHIL - 7 assessed: 12/14/23 Source: Developed by Drs. Angel Tolbert, Thelma Townsend, David Francisco and colleagues, with an educational adrianna from [employer]. Review of Systems Const Denies chills, Denies fatigue, Denies fever(s), Denies headache(s) and Denies weakness ENT Denies dizziness and Denies headache(s) Card Denies dyspnea Resp Denies cough, Denies dyspnea, Denies wheezing and Denies other (shortness of breath) Musc Denies numbness and Denies tingling Neuro Denies dizziness, Denies headache(s), Denies numbness, Denies tingling and Denies weakness Psych Denies anxiety and Denies depression Endo Denies fatigue Aller/Immun Denies wheezing Physical exam (Primary Care) Tobacco/Smoking Status: Tobacco use Status Tobacco use date assessed 12/14/23 12/15/23 13:51 Patient Tobacco Use Status Former Tobacco user 12/15/23 13:51 e-Cigarette/Vaping Use Never Used 12/15/23 13:51 Thrive Assessment: Date of Thrive Assessment Date Thrive assessed 12/14/23 12/15/23 13:51 Telehealth Telehealth Minutes spent on Phone/Video with Pt.: 20 Assessment and Plan Assessment & Plan (1) C7 cervical fracture: Comment: fall 12/03/2023 Code(s): S12.600A - Unspecified displaced fracture of seventh cervical vertebra, initial encounter for closed fracture Plan: C7?cervical?spine?fracture - apparently?comminuted?with?involvement?of?anterior?column. No?ne urologic?deficits. Patient?remains?in?C-spine?collar?and?will?likely?need?to?remain?so?for?6-12?wee ks.??She?has?a?2?week?x-ray?schedule?for?tomorrow?and?an?appointment?with?orthop edic?surgeon?the?following?day. Pain?control?is?good. I?had?increased?her?gabapentin?and?we?can?discuss?weaning?that?back?down?at?her? next?visit She?and?I?discussed?whether?or?not?she?would?need?an?MRI.??I?will?await?th e?note?from?her?orthopedic?specialist?from?this?Fridays?appointment. Will?get?her?in?on?November??or??to?review?the?above. (2) Rib fracture: Code(s): S22.39XA - Fracture of one rib, unspecified side, initial encounter for closed fracture Plan: Breathing?okay?and?pain?is?resolved.??No?longer?requiring?Tylenol. Coding Level of Care Code Tele Est Pt Level 3 (40953) Diagnoses C7 cervical fracture S12.600A Rib fracture S22.39XA
== END 2023-12-15 17:02 | disposition home or self-care (01) ==
LOC: HO.HMGFM 13:55
PROVIDERS: PCP Family Medicine; Visit Provider Family Medicine
DX: S12.600A Unspecified displaced fracture of seventh cervical vertebra, initial encounter for closed fracture (principal); S22.31XA Fracture of one rib, right side, initial encounter for closed fracture
CPT/HCPCS: 99213

== ENCOUNTER 2023-12-23 08:33 | Outpatient (AMB) | payer OTHER, SELFPAY ==
[2023-12-23 08:37] VITALS: BP 126/68; PULSE 87; RESP 14; TEMP 36.5; O2SAT 99; BMI 25.9
--- NOTE | 2023-12-23 08:37 | MHC.PC.OV ---
Vital Signs 12/23/23 08:37 Height 5 ft 6 in Weight 160 lb 7 oz BMI 25.9 BP 126/68 Blood Pressure Location Rt brachial Position Sitting Respiration 14 Pulse 87 Pulse Source Pulse Oximeter Temp 97.7 F Temp Source Temporal Artery Scan Pulse Oximetry (%) 99 Oxygen Delivery Method Room Air Intake Visit Reasons: f/u Broken Neck Intake Note: Patient would like Neuro Surgeon stat referral @ [facility]. Patient would like a stat MRI. Patient would like to get opinion on whether neurology should be following due to seizure. Patient would also like to go over concussion protocol. Drawing Instructor Required: No Allergies kiwi [KIWI] Allergy (Severe, Verified 12/23/23 08:44) THROAT SWELLING artur [ARTUR] Allergy (Severe, Verified 12/23/23 08:44) THROAT SWELLING pineapple [PINEAPPLE] Allergy (Severe, Verified 12/23/23 08:44) THROAT SWELLING Tobacco use date assessed: 12/23/23 Dental Screening Dental Screen Date: 12/23/23 Did you have a dental visit in the last 12 months?: Yes Did you have a dental problem in the last 6 months where you did not have access to dental care?: No Was dental information given to patient?: Patient has dentist HPI f/u Broken Neck HPI Details 58 y/o female presents to f/u C7 cervical fracture. Had increased her gabapentin last office visit. Apparently,?patient?had?a?follow-up?with?her?orthopedic?specialist?to?review?follow-up?x-rays?which?were?performed?around?12/15 or?12/16. At?that?appointment,?patient?apparently?had?seizure-like?activity?and?was?sent?to?the?emergency?department. She reports no?tongue?bite,?no?loss?of?urine?and lack of post-ictal state. Chest?x-ray?was?negative. CT?angio?of?head?and?neck?was?negative. CT?of?head?was?negative?for?any?intracranial?lesions. 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 Angel Tolbert, Thelma Townsend, David Francisco and colleagues, with an educational adrianna from [employer]. Review of Systems Const Denies chills, Denies fatigue, Denies fever(s), Denies headache(s) and Denies weakness ENT Denies dizziness and Denies headache(s) Card Denies dyspnea Resp Denies cough, Denies dyspnea, Denies wheezing and Denies other (shortness of breath) Musc Denies numbness and Denies tingling Neuro Denies dizziness, Denies headache(s), Denies numbness, Denies tingling and Denies weakness Psych Denies anxiety and Denies depression Endo Denies fatigue Aller/Immun Denies wheezing Physical exam (Primary Care) Vital Signs: Last Vital Signs Temp 97.7 F 12/23/23 08:37 Pulse 87 12/23/23 08:37 Resp 14 12/23/23 08:37 BP 126/68 12/23/23 08:37 Pulse Ox 99 12/23/23 08:37 Oxygen Delivery Method Room Air 12/23/23 08:37 BMI result Body Mass Index 25.9 Tobacco/Smoking Status: Tobacco use Status Tobacco use date assessed 12/23/23 12/23/23 08:48 Patient Tobacco Use Status Former Tobacco user 12/23/23 08:41 e-Cigarette/Vaping Use Never Used 12/23/23 08:41 Thrive Assessment: Date of Thrive Assessment Date Thrive assessed 08/10/23 12/23/23 08:41 Const General: well developed; No acute distress Nutritional Appearance: well nourished Orientation/consciousness: patient oriented x3 HENMT Head: Yes normocephalic and Yes atraumatic Eyes General: appearance normal, both eyes and all related structures Pupils: Equal, round and reactive pupils present EOM: EOMs intact bilaterally Resp Effort & Inspection: normal respiratory effort Neuro General: patient oriented x3 and gait normal Cranial nerves: Yes Equal, round and reactive pupils present Psych Affect: normal affect Assessment and Plan Assessment & Plan (1) C7 cervical fracture: Comment: fall 12/03/2023 Code(s): S12.600A - Unspecified displaced fracture of seventh cervical vertebra, initial encounter for closed fracture Plan: Patient?is?in?a?[employer]?collar?and?comfortable Has?appointment?with?Ortho?again No?physical?therapy?yet?but?she?can?walk?and?do?things?around?her?home. Patient?would?like?2nd?opinion?and?I?am?ordering?an?MRI?and?making?referral?to?neurosurgeon?at?her?request. (2) Seizure-like activity: Code(s): R56.9 - Unspecified convulsions Plan: Patient?notes?that?she?had?been?severely?emotionally/psychologically?overwhelmed?and?stressed?and?had?manipulation?of?head?and?neck. This?does?not?appear?to?have?been?a?seizure?however.??And CT?scans?help?rule?out?stroke/TIA?or?any?intracranial?bleed?or?lesion. This?was?likely?a?vasovagal response?with?hypotension?and?seizure-like?activity. At?this?point,?no?indication?for?referral?to?neurology?but?if?anything?like?this?happens?again?would?refer. Orders: Orders MR cervical spine wo con Today S12.600A - Unspecified displaced fracture of seventh cervical vertebra, initial encounter for closed fracture Coding Level of Care Code Est Pt Level 3 (85029) Diagnoses C7 cervical fracture S12.600A Seizure-like activity R56.9
== END 2023-12-23 09:47 | disposition home or self-care (01) ==
PROVIDERS: PCP Family Medicine; Visit Provider Family Medicine
DX: S12.600A Unspecified displaced fracture of seventh cervical vertebra, initial encounter for closed fracture (principal); R56.9 Unspecified convulsions
CPT/HCPCS: 99213

== ENCOUNTER 2024-01-08 11:36 | Outpatient (AMB) | payer OTHER, SELFPAY ==
[2024-01-08 11:40] VITALS: BP 116/70; PULSE 78; RESP 14; TEMP 36.6; O2SAT 100; BMI 25.7
--- NOTE | 2024-01-08 11:40 | MHC.PC.OV ---
Vital Signs 01/08/24 11:40 Height 5 ft 6 in Weight 159 lb 7 oz BMI 25.7 BP 116/70 Blood Pressure Location Rt brachial Position Sitting Respiration 14 Pulse 78 Pulse Source Pulse Oximeter Temp 97.8 F Temp Source Temporal Artery Scan Pulse Oximetry (%) 100 Oxygen Delivery Method Room Air Intake Visit Reasons: f/u neck fracture Consumer Lender Required: No Accompanied by: Spouse Allergies kiwi [KIWI] Allergy (Severe, Verified 01/08/24 11:47) THROAT SWELLING artur [ARTUR] Allergy (Severe, Verified 01/08/24 11:47) THROAT SWELLING pineapple [PINEAPPLE] Allergy (Severe, Verified 01/08/24 11:47) THROAT SWELLING Tobacco use date assessed: 12/23/23 Dental Screening Dental Screen Date: 12/23/23 HPI f/u neck fracture HPI Details 58 y/o female presents to f/u cervical spine fracture. Had talked about referral to neurosurgery - she reports no one has contacted her yet. She notes she has talked with orthopedics on the phone. She notes swelling at back of her neck has reduced. She feels strength is coming back in her neck muscles. Denies any recent seizure-like activities. She notes rib pain has resolved. 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 Angel Tolbert, Thelma Townsend, David Francisco and colleagues, with an educational adrianna from [employer]. Review of Systems Const Denies chills, Denies fatigue, Denies fever(s), Denies headache(s) and Denies weakness ENT Denies dizziness and Denies headache(s) Card Denies dyspnea Resp Denies cough, Denies dyspnea, Denies wheezing and Denies other (shortness of breath) Musc Denies numbness and Denies tingling Neuro Denies dizziness, Denies headache(s), Denies numbness, Denies tingling and Denies weakness Psych Denies anxiety and Denies depression Endo Denies fatigue Aller/Immun Denies wheezing Physical exam (Primary Care) Vital Signs: Last Vital Signs Temp 97.8 F 01/08/24 11:40 Pulse 78 01/08/24 11:40 Resp 14 01/08/24 11:40 BP 116/70 01/08/24 11:40 Pulse Ox 100 01/08/24 11:40 Oxygen Delivery Method Room Air 01/08/24 11:40 BMI result Body Mass Index 25.7 Tobacco/Smoking Status: Tobacco use Status Tobacco use date assessed 12/23/23 01/08/24 11:50 Patient Tobacco Use Status Former Tobacco user 01/08/24 11:50 e-Cigarette/Vaping Use Never Used 01/08/24 11:50 Thrive Assessment: Date of Thrive Assessment Date Thrive assessed 08/10/23 01/08/24 11:50 Const General: well developed; No acute distress Nutritional Appearance: well nourished Orientation/consciousness: patient oriented x3 HENMT Other: Pt remains in a [place] collar Head: Yes normocephalic and Yes atraumatic Eyes General: appearance normal, both eyes and all related structures Pupils: Equal, round and reactive pupils present EOM: EOMs intact bilaterally Resp Effort & Inspection: normal respiratory effort Neuro General: patient oriented x3 and gait normal Cranial nerves: Yes Equal, round and reactive pupils present Psych Affect: normal affect Assessment and Plan Assessment & Plan (1) C7 cervical fracture: Comment: fall 12/03/2023 Code(s): S12.600A - Unspecified displaced fracture of seventh cervical vertebra, initial encounter for closed fracture Plan: C7?cervical?fracture?after?fall?from?height?in?November. Patient?remains?in?[place]?collar Recent?MRI?shows?stable?nondisplaced?fracture?of?C7?without?retropulsion. No central?canal?stenoses.??She?does?have?what?appears?to?be?subacute?on?chronic?narrowing?of?right?C5-6?foraminal?space. She?has?normal?sensation?and?strength?at?bilateral?hands?and?legs. She?had?an?appointment?for?follow-up?with?ortho?but?has?not?had?x-rays?done?yet.??I?have?ordered?x-rays?of?her?C-spine?and?she?can?get?these?done?today?then?make?her?follow-up?appointment?with?Ortho. Patient?has?asked?for?a?referral?to?neuro?surgery?as?well?which?I?have?made. (2) Seizure-like activity: Code(s): R56.9 - Unspecified convulsions Plan: No?further?seizure-like?activity.??As?we?discussed?in?last?visit.??This?was?likely?vasovagal?syndrome?as?she?was?quite?emotionally?overwhelmed?and?did?not?have?any?tongue?bites,?loss?of?urine?or?postictal?state. (3) Rib fracture: Code(s): S22.39XA - Fracture of one rib, unspecified side, initial encounter for closed fracture Plan: No?further?pain Resolving Orders: Orders XR cervical spine 3V Today S12.600A - Unspecified displaced fracture of seventh cervical vertebra, initial encounter for closed fracture, W17.89XA - Other fall from one level to another, initial encounter Referrals Neurosurgery Referral S12.600A - Unspecified displaced fracture of seventh cervical vertebra, initial encounter for closed fracture Coding Level of Care Code Est Pt Level 3 (51325) Diagnoses C7 cervical fracture S12.600A Seizure-like activity R56.9 Rib fracture S22.39XA
== END 2024-01-08 13:12 | disposition home or self-care (01) ==
PROVIDERS: PCP Family Medicine; Visit Provider Family Medicine
DX: S12.600A Unspecified displaced fracture of seventh cervical vertebra, initial encounter for closed fracture (principal); R56.9 Unspecified convulsions; S22.39XA Fracture of one rib, unspecified side, initial encounter for closed fracture
CPT/HCPCS: 99213

== ENCOUNTER 2024-01-15 13:47 | Outpatient (REF) | payer OTHER, SELFPAY ==
--- NOTE | ~2024-01-15 | XR_ITS ---
EXAMINATION: XR CERVICAL SPINE CLINICAL INFORMATION: Unspecified displaced fracture of seventh cervical vertebra. COMPARISON: None available. TECHNIQUE: 4 views of the cervical spine. FINDINGS: Straightening of the normal cervical lordosis. Diffuse demineralization. Heterogeneous amorphous densities in the soft tissues anterior to the mid cervical spine may represent calcifications, possibly cartilaginous. Multilevel cervical spondylosis. Compression fracture of C7 vertebral body difficult to evaluate due to overlying bone and soft tissue structures. XR/XR cervical spine 3V IMPRESSION: 1. Compression fracture of C7 vertebral body difficult to evaluate due to overlying bony and soft tissue structures. Additional imaging with CT scan or MRI recommended. 2. Heterogeneous amorphous densities in the soft tissues anterior to the mid cervical spine may represent calcifications, possibly cartilaginous. This study was presented today February 01, 2024 for interpretation. Stat results provided at this time as requested by referring provider.
== END 2024-01-15 13:48 | disposition home or self-care (01) ==
LOC: HO.XRAY 13:47
PROVIDERS: PCP Family Medicine; Visit Provider Family Medicine
DX: S12.600A Unspecified displaced fracture of seventh cervical vertebra, initial encounter for closed fracture (principal); W17.89XA Other fall from one level to another, initial encounter
CPT/HCPCS: 72040

== ENCOUNTER 2024-02-01 09:21 | Outpatient (AMB) | payer OTHER, SELFPAY ==
--- NOTE | 2024-02-01 09:24 | HO.SPINEOV ---
Intake Visit Reasons: fracture C7 Intake Note: is here today c/o neck pain. 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 She reports an inciting incident of a fall off a ladder in early November. She was evaluated by a local emergency department in [place], by her primary care, and by [facility] with [facility] in [place]. She was placed in a cervical hard collar by this spine service. After reviewing their consult notes it appears they believed the fracture was self limiting, requiring no significant inervention. She is now >2 months out from the inciting incident, and states she feels much better than she did previously. She reports no pain, is taking no pain medications, and has taken the collar off several times without issue. She lives in [place] in [facility] interested in having her spine care continued with our service so she does not have to travel to [place] any longer. PMH: RLS, Anemia, Anxiety, depression, Asthma, Hyperlipidemia. Social hx: Patient does not smoke, reports no substance use. Medications: Albuterol, atorvastatin, buproprion, SSRI (unknown name), calcium carbonate, ceterizine, Vit D3, Fluticasone, Gabapentin, Lorazepam, Ondansetron, Tramadol, Cyclobenzaprine. Allergies: Kiwi, artur, pineapple. Physical exam: The patient has 5/5 strength in her upper and lower extremities. She ambulates well without an antalgic gait. Her sensation is intact grossly. Her reflexes are 3+ diffusely. No pain to direct palpation of posterior cervical spine. Hard collar was taken off, patient is able to complete 90 degrees of cervical rotation to the left than the right. No issues with forward neck flexion/extension. (-) Srinivasan's, (-) clonus, (-) Lhermitte's. Imaging review: MRI of the cervical spine completed at [facility] shows a vertebral body fracture of C7 with no significant retropulsion or compression of the spinal cord. No T2 signal change. Some varying levels of mild-moderate foraminal stenosis noted between C3-C6. Likely longstanding. Notable T3 compression fracture, also not causing any significant central canal or foraminal stenosis. Impression: Tracey is a pleasant 58-year-old female comes in today with a chief complaint of fall off a ladder roughly 2 months ago which resulted today cervical spine nondisplaced fracture at C7. There also was an incidental finding of a compression fracture at T3. The patient reports 0 pain, no pain medications, and no issues with weight-bearing/weightlifting. She has been completing all of her ADLs, has been lifting free weights, and walking outside/exercising. Unfortunately, she has been doing all of this in a cervical hard collar. She is now roughly 2 months out from being placed in the hard collar, and has no pain to palpation of her cervical spine, no issues with cervical spine flexion/extension/lateral rotation, and is taking no pain medications. For these reasons I advised her to transition to a soft collar for comfort as needed. There is no need for continued routine follow-up with our service, she may follow up with her primary care physician shay. Thank you for allowing us to care for your patient. The total time spent with this visit with this patient was 45 minutes reviewing history, physical exam, MRI imaging review, and implementation of treatment plan or further diagnostic testing Carlos Garcia MD,PhD [facility] Coding Level of Care Code New Pt Level 4 (15678) Diagnoses C7 cervical fracture S12.600A
== END 2024-02-01 10:08 | disposition home or self-care (01) ==
PROVIDERS: PCP Family Medicine; Visit Provider Physician Assistant
DX: S12.600A Unspecified displaced fracture of seventh cervical vertebra, initial encounter for closed fracture (principal)
CPT/HCPCS: 99204

== ENCOUNTER → 2024-02-01 09:21 | Outpatient (BNVA) | payer OTHER, SELFPAY | PROVIDERS: PCP Family Medicine; Visit Provider Physician Assistant ==

== ENCOUNTER 2024-02-17 09:41 | Outpatient (AMB) | payer OTHER, SELFPAY ==
--- NOTE | 2024-02-17 09:46 | A.OFFPC_ITS ---
Vital Signs 02/17/24 09:51 Height 5 ft 6 in Weight 164 lb BMI 26.5 BP 108/68 Blood Pressure Location Lt brachial Position Sitting Respiration 16 Pulse 67 Pulse Source Pulse Oximeter Temp 97.6 F Temp Source Oral Pulse Oximetry (%) 99 Oxygen Delivery Method Room Air Intake Visit Reasons: f/u cervical fracture Intake Note: patient here for follow up on cervical fracture. Human Resources Benefits Assistant Required: No Is last menstrual period known: No Post menopausal: No Patient : No Allergies kiwi [KIWI] Allergy (Severe, Verified 02/17/24 09:48) THROAT SWELLING artur [ARTUR] Allergy (Severe, Verified 02/17/24 09:48) THROAT SWELLING pineapple [PINEAPPLE] Allergy (Severe, Verified 02/17/24 09:48) THROAT SWELLING Medication List - Last Reconciled 02/17/24 by Alberto Alvarez MD atorvastatin 20 mg PO BEDTIME 30 days bupropion HCl 75 mg PO BID calcium carbonate 500 mg PO DAILY 30 days cholecalciferol (vitamin D3) 50 mcg PO DAILY cyclobenzaprine 10 mg PO TID PRN 7 days fluticasone propionate 50 mcg/actuation 1 spray intranasal DAILY 90 days gabapentin 200 mg (2 x 100 mg) PO DAILY 90 days gabapentin 800 mg (2 x 400 mg) PO DAILY PRN 90 days lorazepam 0.5 mg PO DAILY PRN 28 days Tobacco use date assessed: 12/23/23 Dental Screening Dental Screen Date: 12/23/23 HPI f/u cervical fracture HPI Details 58 y/o female [facility] in November. Had seen [facility] 02/01/24. Pain continues to improve - has been lifting free weights, walking outside/exercising. She is still in a cervical hard collar. They had recommended to transition to a soft collar for comfort as needed. They had recommended to f/u with her pcp. Pt notes she continues to feel well. She states mobility still significantly decreased and still feels tight. She notes they had recommended against PT at this time. Pt notes vision changes. Pt states she is concerned about her ongoing mild anemia. 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 Angel Tolbert, Thelma Townsend, David Francisco and colleagues, with an educational adrianna from [employer]. Review of Systems Const Denies chills, Denies fatigue, Denies fever(s), Denies headache(s) and Denies weakness ENT Denies dizziness and Denies headache(s) Card Denies dyspnea Resp Denies cough, Denies dyspnea, Denies wheezing and Denies other (shortness of breath) Musc Denies numbness and Denies tingling Neuro Denies dizziness, Denies headache(s), Denies numbness, Denies tingling and Denies weakness Psych Denies anxiety and Denies depression Endo Denies fatigue Aller/Immun Denies wheezing Physical exam (Primary Care) Vital Signs: Last Vital Signs Temp 97.6 F 02/17/24 09:51 Pulse 67 02/17/24 09:51 Resp 16 02/17/24 09:51 BP 108/68 02/17/24 09:51 Pulse Ox 99 02/17/24 09:51 Oxygen Delivery Method Room Air 02/17/24 09:51 BMI result Body Mass Index 26.5 Tobacco/Smoking Status: Tobacco use Status Tobacco use date assessed 12/23/23 02/17/24 09:55 Patient Tobacco Use Status Former Tobacco user 02/17/24 09:55 e-Cigarette/Vaping Use Never Used 02/17/24 09:55 Thrive Assessment: Date of Thrive Assessment Date Thrive assessed 08/10/23 02/17/24 09:55 Const General: well developed; No acute distress Nutritional Appearance: well nourished Orientation/consciousness: [facility] oriented x3 [facility] Head: Yes normocephalic and Yes atraumatic Eyes General: appearance normal, both eyes and all related structures Pupils: Equal, round and reactive pupils present EOM: EOMs intact bilaterally Resp Effort & Inspection: normal respiratory effort Neuro General: patient oriented x3 and gait normal Cranial nerves: Yes Equal, round and reactive pupils present Psych Affect: normal affect Assessment and Plan Assessment & Plan (1) C7 cervical fracture: Comment: fall 12/03/2023 Code(s): S12.600A - Unspecified displaced fracture of seventh cervical vertebra, initial encounter for closed fracture Plan: Traumatic?injury?after?fall?with?cervical?fracture?at?C7. No?longer?in?hard?collar?and?was?seen?by?[facility]?spine ?services?and?recommended?switching?to?a?soft?collar?p.r.n.. Patient?has?significantly?decreased?range?of?motion.??Will?check?with??[facility]?office?regarding?any?contraindications?to?physical?ther apy?and?will?order?otherwise. (2) Mild anemia: Code(s): D64.9 - Anemia, unspecified Plan: Mild?persistent?anemia Patient?would?like?to?resume?iron?that?she?was?previously?taking. Unclear?if?she?has?an?iron?deficiency?anemia?as?she?was?previously?taking?iron?a nd?her?iron?levels?are?okay She?can?resume?iron Referring?her?to?Hematology-Oncology. She?also?notes?severe?restless?legs?and?would?like?to?discuss?iron?infusions?wit h?Hematology-Oncology. 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 Follow-up?with?ophthalmology Orders: Referrals Hematology & Oncology Referral D64.9 - Anemia, unspecified Medications: New ferrous sulfate 325 mg PO DAILY 90 days 90 tabs 3RF Coding Level of Care Code Est Pt Level 4 (59135) Diagnoses C7 cervical fracture S12.600A Mild anemia D64.9 Vision changes H53.9
[2024-02-17 09:51] VITALS: BP 108/68; PULSE 67; RESP 16; TEMP 36.4; O2SAT 99; BMI 26.5
== END 2024-02-17 10:24 | disposition home or self-care (01) ==
PROVIDERS: PCP Family Medicine; Visit Provider Family Medicine
DX: S12.600A Unspecified displaced fracture of seventh cervical vertebra, initial encounter for closed fracture (principal); D64.9 Anemia, unspecified; H53.9 Unspecified visual disturbance
CPT/HCPCS: 99214

== ENCOUNTER 2024-03-22 07:02 | Outpatient (REF) | payer OTHER, SELFPAY ==
[2024-03-22 07:11] LABS: MANUAL DIFF FLAG NO
[2024-03-22 07:44] LABS: Basophils Percent Auto 1.2 % (0-2); Eosinophils Absolute Auto 0.2 X10*3/uL (0.0-0.4); Eosinophils Percent Auto 5.8 % (0-4); Hematocrit 34.3 % (37.0-47.0); Hemoglobin 11.5 g/dl (12.0-16.0); Imm Gran Abs Auto 0.01 X10*3/uL (0.00-0.03); Imm Gran Pct Auto 0.3 % (0.0-0.4); Lymphocytes Absolute Auto 1.6 X10*3/uL (1.2-4.9); Lymphocytes Percent Auto 47.3 % (20-40); Mean Corpuscular HGB Conc 33.5 g/dl (31.0-35.0); Mean Corpuscular Hemoglobin 31.3 pg (27.0-33.0); Mean Corpuscular Volume 93.5 fL (80.0-98.0); Mean Platelet Volume 8.5 fL (9.4-12.3); Monocytes Absolute Auto 0.4 X10*3/uL (0.1-1.2); Monocytes Percent Auto 12.7 % (2-11); Neutrophils Absolute Auto 1.1 x10*3/uL (2.0-8.3); Neutrophils Percent Auto 32.7 % (45-73); Platelet Count 301 X10*3/uL (160-400); Red Blood Count 3.67 X10*6/uL (4.20-5.50); Red Cell Distribution Width 12.2 % (11.0-16.0); White Blood Count 3.3 X10*3/uL (4.8-10.8)
[2024-03-22 07:53] LABS: Appearance Urine Clear; Color Urine Yellow; Glucose Urine UA Negative (Negative); Leukocyte Esterase Urine Trace (Negative); Nitrite Urine Negative (Negative); PH 5.5 (5.0-9.0); Specific Gravity - Urine 1.015 (1.005-1.025); UMIC TRIGGER UA YES; Urine Blood Small (1+) (Negative); Urine Ketones Negative (Negative); Urine Protein Negative (Neg-Trace)
[2024-03-22 08:27] LABS: Alanine Aminotransferase 11 U/L (0-31); Alkaline Phosphatase 51 U/L (39-117); Anion Gap 10 (12-20); Aspartate Amino Transferase 25 U/L (5-31); Bilirubin Total 0.4 mg/dL (0.0-1.0); Blood Urea Nitrogen 15 mg/dL (9-16); Calcium 9.3 mg/dL (8.4-10.2); Carbon Dioxide 25 mmol/L (22-29); Chloride 112 mmol/L (96-108); Cholesterol 180 mg/dL (<200); Estimated Glomerular Filt Rate > 60; Glucose Fasting 91 mg/dL (60-99); HDL Cholesterol 83 mg/dL (>40); LDL Cholesterol Calculated 88 mg/dL (<100); Potassium 3.8 mmol/L (3.3-5.1); Sodium 143 mmol/L (135-145); Total Protein 7.2 g/dL (6.5-8.0); Triglycerides 49 mg/dL (<150)
[2024-03-22 08:29] LABS: Bacteria Urine None Seen (None Seen); Hyaline Casts Urine 0-2 /LPF (0-2); RBC Urine 0-2 /HPF (0-2); Squamous Epithelial Cell Urine 0-2 /HPF (0-2); WBC Urine 0-5 /HPF (0-5)
== END 2024-03-22 07:03 | disposition home or self-care (01) ==
LOC: HO.LAB 07:02
PROVIDERS: PCP Family Medicine; Visit Provider Family Medicine
DX: Z00.00 Encounter for general adult medical examination without abnormal findings (principal); D64.9 Anemia, unspecified; E78.5 Hyperlipidemia, unspecified; E66.3 Overweight
CPT/HCPCS: 36415; 80053; 80061; 81001; 85025

== ENCOUNTER → 2024-03-24 08:46 | Outpatient (BNVA) | payer OTHER, SELFPAY | PROVIDERS: PCP Family Medicine; Visit Provider Family Medicine | DX: D64.9 Anemia, unspecified (principal); E78.5 Hyperlipidemia, unspecified; Z79.899 Other long term (current) drug therapy ==

== ENCOUNTER → 2024-03-24 08:46 | Outpatient (AMB) | payer OTHER, SELFPAY ==
--- NOTE | 2024-03-24 08:45 | A.OFFPC_ITS ---
Intake Visit Reasons: f/u labs via telemedicine Allergies kiwi [KIWI] Allergy (Severe, Verified 03/24/24 08:45) THROAT SWELLING artur [ARTUR] Allergy (Severe, Verified 03/24/24 08:45) THROAT SWELLING pineapple [PINEAPPLE] Allergy (Severe, Verified 03/24/24 08:45) THROAT SWELLING Tobacco use date assessed: 12/23/23 Dental Screening Dental Screen Date: 12/23/23 HPI f/u labs via telemedicine HPI Details 58 y/o female presents to f/u labs via t elemedicine. Labs drawn 03/22/24. Reviewed labs with pt. Ongoing anemia. She notes she has been on her iron. Triglycerides 49. TC 180. LDL 88. HDL 83. She is on artovastatin 20mg. Urine studies are fine. She has an appt. with Heme Onc in March. She notes she is feeling well. HPI Comments History of Present Illness Details Documentation assistance for Alberto Alvarez MD, was provided by Brad Hernadez, Programmer Operator Numerical Control on 03/24/2024 at 9:03 AM EST. I, Dr. Alvarez, have read, observed, and verified documentation. 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 How often do you have six or more drinks on one occasion?: Never Total Score: 0 SENTHIL-7 AMB Questionnaire SENTHIL-7 Date SENTHIL - 7 assessed: 08/10/23 Source: Developed by Drs. Angel Tolbert, Thelma Townsend, David Francisco and colleagues, with an educational adrianna from [employer]. Review of Systems Const Denies chills, Denies fatigue, Denies fever(s), Denies headache(s) and Denies weakness ENT Denies dizziness and Denies headache(s) Card Denies dyspnea Resp Denies cough, Denies dyspnea, Denies wheezing and Denies other (shortness of breath) Musc Denies numbness and Denies tingling Neuro Denies dizziness, Denies headache(s), Denies numbness, Denies tingling and Denies weakness Psych Denies anxiety and Denies depression Endo Denies fatigue Aller/Immun Denies wheezing Physical exam (Primary Care) Tobacco/Smoking Status: Tobacco use Status Tobacco use date assessed 12/23/23 03/24/24 08:46 Patient Tobacco Use Status Former Tobacco user 03/24/24 08:46 e-Cigarette/Vaping Use Never Used 03/24/24 08:46 Thrive Assessment: Date of Thrive Assessment Date Thrive assessed 08/10/23 03/24/24 08:46 Telehealth Telehealth Telehealth Platform: Telephone Location of provider rendering services: practice address Location of patient: address on file Patient Identification confirmed using: Name, : Yes Telehealth method: voice only Patient verbally consented to treatment: Yes Patient verbally consented to billing insurance company: Yes Patient informed of any privacy concerns related to visit: Yes Minutes spent on Phone/Video with Pt.: 5 Assessment and Plan Assessment & Plan (1) Anemia: Code(s): D64.9 - Anemia, unspecified Plan: Still?has?persistent?anemia.??Patient?says?she?has?been?taking?iron?and?this?sexton s?not?seem?to?impact?her?H&H. Iron?studies?at?last?check?were?already?within?normal?range She?has?an?appointment?with?Hematology-Oncology (2) Hyperlipidemia: Code(s): E78.5 - Hyperlipidemia, unspecified Plan: Lipids?appear?well?controlled?on?atorvastatin.??LDL?is?at?goal?of?less?than?100 Continue?current?medication Encouraged?healthy?diet?and?exercise?as?tolerated Coding Level of Care Code Tele Est Pt Level 2 (66214) Diagnoses Anemia D64.9 Hyperlipidemia E78.5
== END ==
LOC: HO.HMCFM 08:46
PROVIDERS: PCP Family Medicine; Visit Provider Family Medicine
DX: D64.9 Anemia, unspecified (principal); E78.5 Hyperlipidemia, unspecified

== ENCOUNTER → 2024-04-19 13:16 | Outpatient (BNV) | payer OTHER, SELFPAY | PROVIDERS: PCP Family Medicine; Referring Provider Family Medicine; Visit Provider Internal Medicine | DX: D64.9 Anemia, unspecified (principal); D72.819 Decreased white blood cell count, unspecified | CPT/HCPCS: 99204 ==

== ENCOUNTER 2024-05-19 08:00 | Outpatient (RCR) | payer OTHER, SELFPAY ==
[2024-03-22 07:49] VITALS: BP 107/58; PULSE 60; O2SAT 99
--- NOTE | 2024-03-22 16:01 | MHC.PT.EP ---
[facility] [place] Office [place] Office [place] Office [address] Meka Campbell [address] [phone] F: [phone] F: [phone] F: [phone] F: [phone] Physical Therapy Plan of Care Date of Evaluation: 03/22/24 Date of Surgery: N/A Diagnosis: Cervicalgia and decrease range of motion Assessment: Pt is a 58yo female presenting to PT with referring dx of cervicalgia and decreased range of motion. Pt is 3mo status post nondisplaced C7 fracture, following use of hard collar for about 2mo. Pt is significantly limited in all directions of cervical range of motion due to immobilization for a prolonged period of time. Pt is a good candidate for PT due to her prior level of function/exercise habits, motivation to improve, modifiable nature of her impairments, and typical prognosis of her condition. She presents with some vasovagal symptoms most likely due to limitations in tissue extensibility, resulting in widespread compression. Impairments include intermittent sharp pain in neck and soreness in bilateral shoulders, global decrease in range of motion, limitations in tissue extensibility, postural deficits, and functional impairments such as lifting/driving/reaching/achieving ranges that allow her to perform daily work tasks. Pt would benefit from a progressive strengthening/stretching program, postural re-education, functional task training for lifting/reaching/work related tasks, manual therapy to improve tissue extensibility, and modalities for pain management. Frequency and Duration: The patient will be seen 2x/wk for 8 weeks Short Term Goals: Pt will improve R cervical rotation by 10deg to facilitate head turning while driving Pt will independently perform HEP for self management of condition Pt will demonstrate proper posture with cell phone use to promote neutral alignment during everyday activities Nursing Home Goals: Pt will increase all GHJ MMT's to 5/5 to facilitate muscular strength required for regular TRX/strength training Pt will report <=2/10 pain with cervical AROM in all directions to promote return to work related tasks Treatment Plan: Modalities to reduce pain, spasms and effusion. Manual therapy to restore motion and function. Therapeutic exercise to improve strength and flexibility. Neuromuscular re-education for posture and balance. Therapeutic activities to return to functional activities of daily living. Electronically signed by: Jessie Silva PT, DPT Please sign and return to therapist. Thank you for your referral.
--- NOTE | 2024-03-22 16:02 | MHC.PT.EP ---
[facility] [place] Office [place] Office [place] Office [address] Meka Campbell [address] [phone] F: [phone] F: [phone] F: [phone] F: [phone] Physical Therapy Plan of Care Date of Evaluation: 03/22/24 Date of Surgery: N/A Diagnosis: Cervicalgia and decrease range of motion Assessment: Pt is a 58yo female presenting to PT with referring dx of cervicalgia and decreased range of motion. Pt is 3mo status post nondisplaced C7 fracture, following use of hard collar for about 2mo. Pt is significantly limited in all directions of cervical range of motion due to immobilization for a prolonged period of time. Pt is a good candidate for PT due to her prior level of function/exercise habits, motivation to improve, modifiable nature of her impairments, and typical prognosis of her condition. She presents with some vasovagal symptoms most likely due to limitations in tissue extensibility, resulting in widespread compression. Impairments include intermittent sharp pain in neck and soreness in bilateral shoulders, global decrease in range of motion, limitations in tissue extensibility, postural deficits, and functional impairments such as lifting/driving/reaching/achieving ranges that allow her to perform daily work tasks. Pt would benefit from a progressive strengthening/stretching program, postural re-education, functional task training for lifting/reaching/work related tasks, manual therapy to improve tissue extensibility, and modalities for pain management. Frequency and Duration: The patient will be seen 2x/wk for 8 weeks Short Term Goals: Pt will improve R cervical rotation by 10deg to facilitate head turning while driving Pt will independently perform HEP for self management of condition Pt will demonstrate proper posture with cell phone use to promote neutral alignment during everyday activities [facility] Goals: Pt will increase all GHJ MMT's to 5/5 to facilitate muscular strength required for regular TRX/strength training Pt will report <=2/10 pain with cervical AROM in all directions to promote return to work related tasks Treatment Plan: Modalities to reduce pain, spasms and effusion. Manual therapy to restore motion and function. Therapeutic exercise to improve strength and flexibility. Neuromuscular re-education for posture and balance. Therapeutic activities to return to functional activities of daily living. Electronically signed by: Jessie Silva PT, DPT Please sign and return to therapist. Thank you for your referral.
--- NOTE | 2024-05-30 12:22 | MHC.PT.DC ---
[facility] Office [place] Office [place] Office [address] Meka Campbell [address] [facility] [phone] F: [phone] F: [phone] F: [phone] F: [phone] Physical Therapy Discharge Report Diagnosis: Cervicalgia and decreased range of motion Date of Surgery: N/A Date of Evaluation: 03/22/24 Date of Discharge: 05/30/24 Treatments to Date: 14 Cancellations to Date: 2 No Shows to Date: 0 Discharge Status: Improved Function Independent with HEP Discharge Summary: The patient overall has made significant improvement since starting PT. She is able to demonstrate neutral spine posture both at rest and with activity. She was also given an oculomotor and vestibular program as she had some questionable post-concussion like symptoms versus questionable vestibular hypofunction. She has returned to work and is able to lift without pain. At this time, she is independent with her home exercise program and is discharged from this physical therapy plan of care. Electronically signed by: Jessie Silva PT, DPT Please sign and return to therapist. Thank you for your referral.
== END 2024-05-30 12:22 | disposition home or self-care (01) ==
LOC: HO.PT 08:00
PROVIDERS: PCP Family Medicine; Visit Provider Family Medicine
DX: S12.000D Unspecified displaced fracture of first cervical vertebra, subsequent encounter for fracture with routine healing (principal); M54.2 Cervicalgia
CPT/HCPCS: 97110; 97112; 97140; 97161; 97164; 97530

== ENCOUNTER 2024-06-14 07:32 | Outpatient (AMB) | payer OTHER, SELFPAY ==
[2024-06-14 07:36] VITALS: BP 114/68; BMI 25.8
--- NOTE | 2024-06-14 07:36 | MHC.OFFVIS ---
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 No complaints. Last Pap/HPV was negative in 04/19 Last Mammogram was BI-RADS 1 in 10/20 Last Colonoscopy was at age of 49, the recommendation was to repeat at the age of 59 [facility] Medical History Broken ribs Broken ankle Vitamin D deficiency Exercise-induced asthma Atypical chest pain Surgical History History of tonsillectomy Family History Mother Mental problem Father Mental problem Substance abuse Social History Household Members: Spouse Housing: House Alcohol intake: never Patient Tobacco Use Status: Former Tobacco user Tobacco use type: Cigarette e-Cigarette/Vaping Use: Never Used Second Hand Smoke Exposure: Yes Substance Use Type: Marijuana service: No Current occupational status: employed 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 Current occupational exposures/hazards: Yes Cognitive needs: No Hearing needs: No Vision needs: No Female Reproductive History Menstrual Age of Menarche: 11 Date of last pap smear: 04/23/22 Date of Mammogram: 10/16/23 Date of last Bone Density Screenin10/16/23 Review of Systems Const All systems reviewed & are unremarkable except as noted in HPI and below Card Reports as per HPI Resp Reports as per HPI GI Reports as per HPI and Reports no additional complaints Reports as per HPI Physical Exam Vital Signs: Last Vital Signs BP 114/68 06/14/24 07:36 BMI result Body Mass Index 25.8 Const General: cooperative, healthy appearing and comfortable Chest Chest palpation & inspection: normal inspection of the chest and normal palpation of entire chest wall Breast/axilla inspection: normal inspection of the breasts and normal inspection of the axillae Breast/axilla palpation: normal palpation of the breasts, normal palpation of the axillae and no axillary lymphadenopathy Resp Effort & Inspection: normal respiratory effort Auscultation: clear to auscultation bilaterally Percussion: percussion normal Cardio Palpation: normal PMI Rate: regular rate Rhythm: regular rhythm Heart sounds: no murmurs and no rubs Peripheral pulses: Peripheral pulses 2+ throughout GI Inspection: Yes normal to inspection Palpation (GI): Soft to palpation, nontender, no guarding, not rigid and No hepatosplenomegaly present Percussion: Yes normal to percussion Auscultation: normal bowel sounds Rectal Exam - Female: deferred General: Yes bladder normal to palpation External Female Exam: No lesion Speculum Exam - Vagina: normal appearance of the vagina, normal palpation, normal vaginal discharge and not erythematous Speculum Exam - Cervix: normal appearance of the cervix and normal palpation Bimanual exam- vagina & uterus: normal bimanual exam, normal palpation, uterine size normal, bladder normal to palpation, consistency normal and normal palpation Bimanual Exam- Adnexa, other: normal adnexae, no masses and no tenderness Assessment & Plan Assessment & Plan (1) Well woman exam: Code(s): Z01.419 - Encounter for gynecological examination (general) (routine) without abnormal findings Category: Medical Plan: Co testing not indicated this year. Counseled the patient about the recommended dietary allowance of 1200 mg of Calcium & 600 IU of vitamin D. Instructions given the patient to schedule next screening Mammogram in 10/21. Referred to GI for screening colonoscopy The patient was instructed to perform monthly self-breast exams and schedule annual exam in a year. All questions answered and the patient verbalized understanding. Orders: Referrals Gastroenterology Referral Z12.11 - Encounter for screening for malignant neoplasm of colon Coding Level of Care Code Est Pt Prev Care 40-64y(75831) Diagnoses Well woman exam Z01.419
--- OUTSIDE RECORDS SUMMARY | 2024-06-14 07:51 | XMS_ITS | Patient Health Record ---
Author Organization [facility] Address [address] [place] [address] Care Team Providers Care Diesel Powerplant Supervisor Name Role Phone MICHAEL ALMAGUER Unavailable [phone] ALLERGIES Allergen (clinical drug ingredient) Drug/Non Drug Allergy documented on EMR Reaction Allergy Type Onset Date Status pineapple (uncoded) Unknown Allergy Active Kiwi Unknown Allergy Active REASON FOR REFERRAL No Information MEDICATIONS Medication SIG (Take, Route, Frequency, Duration) Notes Start Date End Date Status Gabapentin 400 MG 1 capsule Orally Onc e a day 500mg Active Fluticasone Propionate 50 MCG/ACT 1 spray in each nostril Nasally Once a day Active Iron 28 MG 1 tablet Orally Once a day 4x a week Active Magnesium 200 MG 2 tablets with a dolly l Orally Once a day Active Methylcobalamin 1000 MCG as directed Sublingual Active Atorvastatin Calcium 20 MG 1 tablet Oral ly Once a day Active Vitamin D3 50 MCG (1999) 1 capsule Or ally Once a day Active Calcium 500 MG 1 tablet with meals Orally Twice a day Active buPROPion HCl 75 MG 1 tablet Orally Twic e a day Active SOCIAL HISTORY Tobacco Use: Social History Observation Description Date Details (start date - stop date) Current Smoker NA - NA Sex Assigned At : Social History Observation Description Sex Assigned At Unknown Tobacco Use/Smoking Question Answer Notes Are you a current smoker How often do you smoke cigarettes? every day How many cigarettes a day do you smoke? 6-10 PROBLEMS Problem Type ICD Code Onset Dates Problem Status W/U Status Risk SNOMED Code Notes Problem Obesity, unspecified (E66.9) Active confirmed 828874878 Problem Body mass index [BMI] 32.0-32.9, adult (Z68.32) Active confirmed 264917546 Problem Reactive depression (F32.9) Active confirmed [id number] PLAN OF TREATMENT No Information Insurance Providers Payer Name Payer Address Payer Phone Subscriber Number Group Number Insured Name Patient Relationship to Insured Coverage Start Date Coverage End Date [facility] [address] [place] [id number] SABAS ADAN Self - patient is the insured MEDICAL (GENERAL) HISTORY Medical History History ICD Code High Cholesterol Weight gain/loss Anemia Anxiety
== END 2024-06-14 07:55 | disposition home or self-care (01) ==
PROVIDERS: PCP Family Medicine; Visit Provider Obstetrics & Gynecology
DX: Z01.419 Encounter for gynecological examination (general) (routine) without abnormal findings (principal)
CPT/HCPCS: 99396; 99459

== ENCOUNTER 2024-08-24 08:57 | Outpatient (AMB) | payer OTHER, SELFPAY ==
--- NOTE | 2024-08-24 09:08 | A.OFFPC_ITS ---
Vital Signs 08/24/24 09:12 Height 5 ft 6 in Weight 162 lb BMI 26.1 BP 100/60 Blood Pressure Location Lt brachial Position Sitting Respiration 12 Pulse 74 Pulse Source Pulse Oximeter Temp 98.1 F Temp Source Oral Pulse Oximetry (%) 99 Oxygen Delivery Method Room Air Intake Visit Reasons: CPE with f/u labs and health maint. 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 Required: No Is last menstrual period known: No Post menopausal: Yes Patient : No Allergies kiwi [KIWI] Allergy (Severe, Verified 08/24/24 09:08) THROAT SWELLING artur [ARTUR] Allergy (Severe, Verified 08/24/24 09:08) THROAT SWELLING pineapple [PINEAPPLE] Allergy (Severe, Verified 08/24/24 09:08) THROAT SWELLING Medication List - Last Reconciled 08/24/24 by Alberto Alvarez MD atorvastatin 20 mg PO BEDTIME 30 days bupropion HCl 75 mg PO BID calcium carbonate 500 mg PO DAILY 30 days cholecalciferol (vitamin D3) 50 mcg PO DAILY cyclobenzaprine 10 mg PO TID PRN 7 days fluticasone propionate 50 mcg/actuation 1 spray intranasal DAILY 90 days gabapentin 400 mg PO DAILY gabapentin 100 mg PO DAILY PRN lorazepam 0.5 mg PO DAILY PRN 28 days Tobacco use date assessed: 08/24/24 Dental Screening Dental Screen Date: 08/24/24 Did you have a dental visit in the last 12 months?: Yes Did you have a dental problem in the last 6 months where you did not have access to dental care?: No Was dental information given to patient?: No HPI CPE with f/u labs and health maint. HPI Details 58 y/o female presents for a CPE with f/ u labs and health maintenance. No recent labs to review. Follows up with [facility] for longstanding anemia. Bone density test 10/16/23 showed osteopenia. Last mammogram 10/16/23 negative. Has an appt. in October for a colonoscopy. She reports a few episodes of muscle spasms. Also notes some neck pain where she had a cervical fracture at. 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 1. Little interest or pleasure in doing things: not at all 2. Feeling down, depressed, or hopeless: not at all 3. Trouble falling or staying asleep, or sleeping too much: several days 4. Feeling tired or having little energy: several days 5. Poor appetite or overeating: not at all 6. Feeling bad about yourself - or that you are a failure or have let yourself or your family down: not at all 7. Trouble concentrating on things, such as reading the newspaper or watching television: not at all 8. Moving or speaking so slowly that other people could have noticed. Or the opposite - being so fidgety or restless that you have been moving around a lot more than usual: not at all 9. Thoughts that you would be better off or of hurting yourself in some way: not at all Total score: 2 Depression Screening Interpretation: Negative Depression Screening Done: Yes 24012 - PHQ-9 Billing: Yes Source: Developed by Drs. Angel Tolbert, Thelma Townsend, David Francisco and colleagues, with an educational adrianna from [employer]. Thrive Questionnaire Date Thrive assessed: 08/24/24 I am a: Patient What is your living situation today?: I have a steady place to live Within the past 12 months, did the food you bought not last and you didn't have the money to get more?: Never true Within the past 12 months, did you worry whether your food would run out before you got money to buy more?: Never true Do you have trouble paying for medicines?: No Do you have trouble getting transportation to medical appointments?: No Do you have trouble paying your heating and electricity bill?: No Do you have trouble taking care of your child, family member or friend?: No Do you have trouble with day-to-day activities such as bathing, preparing meals, shopping, managing finances, etc.?: No Are you currently unemployed and looking for a job?: No Are you interested in more education?: No Please select the resources that you would like help with: None Currently or been in a relationship where the following occur: No concerns reported THRIVE Score: 0 AUDIT C Alcohol Use Questionnaire (AUDIT-C) 1. How often do you have a drink containing alcohol?: Never 3. How often do you have six or more drinks on one occasion?: Never Total Score: 0 Score Reviewed/Action Taken: Yes SENTHIL-7 AMB Questionnaire SENTHIL-7 Date SENTHIL - 7 assessed: 08/24/24 Feeling nervous, anxious, or on edge: 0 = Not at all Not being able to stop or control worryin = Not at all Worrying too much about different things: 0 = Not at all Trouble relaxin = Not at all Being so restless that it is hard to sit still: 0 = Not at all Becoming easily annoyed or irritable: 0 = Not at all Feeling afraid as if something awful might happen: 0 = Not at all Total SENTHIL-7 score (0-4 normal; 5-9 mild; 10-14 moderate; 15-21 severe): 0 Source: Developed by Drs. Angel Tolbert, Thelma Townsend, David Francisco and colleagues, with an educational adrianna from [employer]. SETNHIL-7 Assessment Billing SENTHIL-7 Assessment Tool: SENTHIL-7 Assessment 05491 Review of Systems Const Denies chills, Denies fatigue, Denies fever(s), Denies headache(s) and Denies weakness Eyes Denies change in vision ENT Denies dizziness, Denies headache(s), Denies hearing loss, Denies nasal congestion, Denies sinus pain, Denies sinus pressure and Denies sore throat Card Denies chest pain, Denies lightheadedness, Denies dyspnea and Denies other (palpitations) Resp Denies cough, Denies dyspnea and Denies wheezing GI Denies abdominal pain, Denies melena, Denies hematochezia, Denies change in bowel habits, Denies dyspepsia and Denies nausea Denies hematuria and Denies dysuria Musc Denies abnormal gait, Denies myalgias, Denies arthralgias, Denies numbness and Denies tingling Skin/Breast Denies rash, Denies unusual bruising and Denies wounds Neuro Denies abnormal gait, Denies dizziness, Denies headache(s), Denies memory loss, Denies numbness, Denies Sensory deficit (Neuro), Denies tingling and Denies weakness Psych Denies anxiety, Denies depression and Denies memory loss Endo Denies cold intolerance, Denies fatigue, Denies heat intolerance, Denies polydipsia and Denies polyuria Timo/Lymph Denies easy bleeding and Denies easy bruising Aller/Immun Denies wheezing Physical exam (Primary Care) Vital Signs: Last Vital Signs Temp 98.1 F 08/24/24 09:12 Pulse 74 08/24/24 09:12 Resp 12 08/24/24 09:12 BP 100/60 08/24/24 09:12 Pulse Ox 99 08/24/24 09:12 Oxygen Delivery Method Room Air 08/24/24 09:12 BMI result Body Mass Index 26.1 Tobacco/Smoking Status: Tobacco use Status Tobacco use date assessed 08/24/24 08/24/24 09:11 Patient Tobacco Use Status Former Tobacco user 08/24/24 09:11 Tobacco use type Cigarette 08/24/24 09:11 e-Cigarette/Vaping Use Never Used 08/24/24 09:11 PHQ-9: PHQ-9 Score PHQ-9: Total score 2 08/24/24 09:20 Depression Screening Interpretation: Negative Thrive Assessment: Date of Thrive Assessment Date Thrive assessed 08/24/24 08/24/24 09:15 Currently or been in a relationship where the following occur: No concerns reported Const General: no acute distress, well developed, alert and awake Nutritional Appearance: well nourished Orientation/consciousness: patient oriented x3 HENMT Head: Yes normocephalic and Yes atraumatic Ears: hearing grossly normal bilaterally and TM's normal bilaterally General nose exam: Normal external nose present and Normal nares present Mouth: Normal oral and palatal mucosa present and moist mucous membranes Teeth and gingiva: dentition normal Throat: Yes posterior oropharynx normal Eyes General: appearance normal, both eyes and all related structures Pupils: Equal, round and reactive pupils present and Pupil accommodation reflex normal EOM: EOMs intact bilaterally Neck Neck: Yes normal visual inspection, Yes no lymphadenopathy and Yes trachea midline Thyroid: Thyroid normal Carotids: no bruits Lymphatic: no lymphadenopathy noted Chest Chest palpation & inspection: normal inspection of the chest Resp Effort & Inspection: normal respiratory effort Auscultation: clear to auscultation bilaterally Cardio Rate: regular rate Rhythm: regular rhythm Heart sounds: S1 normal heart sound present, S2 normal heart sound present, no gallops, no murmurs and no rubs Bruits: no abdominal aortic bruits and no carotid bruits GI Palpation (GI): No Abdominal aortic bruit present, Soft to palpation, nontender, No hepatosplenomegaly present and No Rebound tenderness present Auscultation: normal bowel sounds General: Yes no CVA tenderness Back/Spine/Pelvis Back: no CVA tenderness Cervical Spine: cervical ROM normal and No Cervical spine tenderness Thoracic/Lumbar Spine: thoraco-lumbar ROM normal, No pain with thoraco-lumbar ROM, No thoracic spinal tenderness and No lumbar spinal tenderness Skin Lesions: no lesions Rashes: no rashes Trauma: no lacerations or abrasions Wounds: no wounds Nails: normal Neuro General: patient oriented x3 Cranial nerves: Yes Equal, round and reactive pupils present Cognition (Neuro): normal cognition Gait exam (Neuro): Normal gait present Motor exam (neuro): 5/5 motor strength present throughout Sensory Exam: No Sensory deficit (Neuro) Deep tendon reflexes (DTR's): Right patellar reflex intensity grade: 2+ and Left patellar reflex intensity grade: 2+ Extrem General: Yes normal to inspection and No edema Psych Appearance: grossly normal Affect: normal affect Attitude: cooperative Thought process: Normal thought process present Coding Level of Care Code Est Pt Level 3 (77776) Est Pt Prev Care 40-64y(37131) Diagnoses Adult general medical exam Z00.00 Cervicalgia M54.2 Muscle spasm M62.838 Hyperlipidemia E78.5 Osteopenia M85.80 Anemia D64.9 Screening for colon cancer Z12.11 Breast cancer screening by mammogram Z12.31 Screening for cervical cancer Z12.4 Additional Codes SENTHIL-7 Assessment Billing - SENTHIL-7 Assessment Tool: SENTHIL-7 Assessment 16136 ([id number]) PHQ-9 - 28389 - PHQ-9 Billing: Yes ([id number]) Assessment & Plan Assessment & Plan (1) Adult general medical exam: Code(s): Z00.00 - Encounter for general adult medical examination without abnormal findings Category: Medical Plan: 58-year-old?female?presents?for?complete?physical?exam Encouraged?a?healthy?diet?with?active?lifestyle?and?plenty?of?exercise (2) Cervicalgia: Code(s): M54.2 - Cervicalgia Category: Medical Plan: Neck?pain?and?muscle?spasms. Patient?is?s/p?cervical?fracture?last?year. 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 (4) Hyperlipidemia: Code(s): E78.5 - Hyperlipidemia, unspecified Category: Medical Plan: She?is?on?atorvastatin Most?recent?lipid?panel?is?controlled. Continue?current?medications (5) Osteopenia: Code(s): M85.80 - Other specified disorders of bone density and structure, unspecified site Category: Medical Plan: Bone?density?testing?last?year?shows?osteopenia. Encouraged?good?sources?of?calcium,?vitamin-D?and?weight-bearing?exercise?as?ralph erated Up-to-date?with?screening (6) Anemia: Code(s): D64.9 - Anemia, unspecified Category: Medical Plan: Mild?chronic?anemia/cytopenias Followed?by?. This?is?stable.??No?concerning?underlying etiology?is?seen Will?follow?for?any?significant?changes?or?symptoms (7) Screening for colon cancer: Code(s): Z12.11 - Encounter for screening for malignant neoplasm of colon Category: Medical Plan: Patient?has?an?appointment?for?colonoscopy?this?spring () Breast cancer screening by mammogram: Code(s): Z12.31 - Encounter for screening mammogram for malignant neoplasm of breast Category: Medical Plan: Last?mammogram?was?negative?for?malignancy. Her?next?mammogram?is?in?September () Screening for cervical cancer: Code(s): Z12.4 - Encounter for screening for malignant neoplasm of cervix Category: Medical Plan: Up-to-date?with Pap?smears.??She?is?followed?by?[facility]?manager plan Orders: Referrals Physiatry Referral M54.2 - Cervicalgia, M62.838 - Other muscle spasm, S12.600A - Unspecified displaced fracture of seventh cervical vertebra, initial encounter for closed fracture Medications: Changed From gabapentin 200 mg (2 x 100 mg) PO DAILY 180 caps 0RF To gabapentin 100 mg PO DAILY PRN
[2024-08-24 09:12] VITALS: BP 100/60; PULSE 74; RESP 12; TEMP 36.7; O2SAT 99; BMI 26.1
--- OUTSIDE RECORDS SUMMARY | 2024-08-24 09:45 | XMS_ITS | Clinical Summary ---
Author Organization [facility] Address [address] [place] [id number] Care Team Providers Care Medicaid Billing Clerk Name Role Phone Pcp, No Primary Care Provider Unavailabl e Allergies No known active allergies Medications Medication Sig Dispensed Refills Start Date End Date Status traMADol (ULTRAM) 50 MG tablet Take 1 tablet (50 mg total) by mouth 3 times daily (every 8 hours) as needed for moderate pain or severe pain. 9 tablet 12/03/2023 Active ondansetron (ZOFRAN-ODT) 4 MG disintegrating tablet Take 1 tablet (4 mg total) by mouth 3 times daily (every 8 hours) as needed for nausea or vomiting. Place tablet on tongue to dissolve. 10 tablet 12/03/2023 Active gabapentin (NEURONTIN) 100 MG capsule Take 7 capsules (700 mg total) by mouth nightly. 21 capsule 12/03/2023 Active Social History Tobacco Use Types Packs/Day Years Used Date Smoking Tobacco: Never Smokeless Tobacco: Never Tobacco Cessation:Counseling Given: Not Answered Alcohol Use Standard Drinks/Week Comments Never 0 (1 standard drink = 0.6 oz pur e alcohol) Sex and Gender Information Value Date Recorded Sex Assigned at Female 12/03/2023 2:04 PM EDT Gender Identity Female 12/03/2023 3:24 PM EDT Sexual Orientation Choose not to disclose 2023 3:24 PM EDT Last Filed Vital Signs Vital Sign Reading Time Taken Comments Blood Pressure 116/64 12/04/2023 4:59 AM EDT Pulse 72 12/04/2023 4:59 AM EDT Temperature 36.5 ??C (97.7 ??F) 12/04/2023 4:59 AM ED T Respiratory Rate 16 12/04/2023 4:59 AM EDT Oxygen Saturation 100% 12/04/2023 4:59 AM EDT Inhaled Oxygen Concentration - - Weight - - Height - - Body Mass Index - - Plan of Treatment Health Maintenance Due Date Last Done Comments Hepatitis C Virus Screening 1964 HIV Screening 1977 DTaP/Tdap/Td Vaccines (1 - Tdap) 11/16/1983 Hepatitis B Vaccines (1 of 3 - 19+ 3-dose series) 11/16/1983 Pap Smear (Ages 21-65) 1985 Mammogram 2004 Colonoscopy 2009 Pneumococcal Vaccines 50+ (1 of 1 - PCV) 2014 Zoster (Shingles) Vaccine (1 of 2) 2014 Influenza Vaccine 01/28/2024 COVID-19 Vaccine ( - 2023-2 5 season) 2024 Pneumococcal Vaccine: Pediat pamela (0-5 Years) and At-Risk Patients (6 to 49 Years) Aged Out No longer eligible b ased on patient's age to complete this topic Care Teams Medicaid Billing Clerk Relationship Specialty Start Date End Date Pcp, No PCP - General General Medicine 12/04/23
--- OUTSIDE RECORDS SUMMARY | 2024-08-24 09:45 | XMS_ITS | Clinical Summary ---
Author Organization [facility] Address [address] [place] [address] Care Team Providers Care Oracle Ebs Developer Name Role Phone Unavailable Primary Care Provider Unavailabl e Social History Tobacco Use Types Packs/Day Years Used Date Smoking Tobacco: Never Assessed Comments Unknown Sex and Gender Information Value Date Recorded Sex Assigned at Not on file Legal Sex Female 6:47 AM PST Gender Identity Not on file Sexual Orientation Not on file Plan of Treatment Not on file
--- OUTSIDE RECORDS SUMMARY | 2024-08-24 09:45 | XMS_ITS | Clinical Summary ---
Author Organization [facility] Address [address] [place] [address] Care Team Providers Care Capacity Analyst Name Role Phone Unknown, Primary Care Provider Unavailabl e Social History Tobacco Use Types Packs/Day Years Used Date Smoking Tobacco: Never Assessed Sex and Gender Information Value Date Recorded Sex Assigned at Not on file Gender Identity Not on file Sexual Orientation Not on file Job Start Date Occupation Industry Not on file Not on file Not on file Plan of Treatment Health Maintenance Due Date Last Done Comments Hepatitis B Vaccines (1 of 3 - 3-dose series) 1964 Hepatitis C Screening 1964 COVID-19 Vaccine (#1) 05/18/1965 Depression Screening 1976 Preventative Health Evaluation 1982 DTap / Tdap / Td (1 - Tdap) 11/16/1983 Cervical Cancer Screening (P ap Smear) 1985 Colon Cancer Screening (Colonoscopy) 2009 Breast Cancer Screening (Mammogram) 2014 Shingrix-Zoster Vaccine (1 of 2) 2014 Influenza Vaccine (#1) 2024 Pneumococcal Vaccine Aged Out No long er eligible based on patient's age to complete this topic RSV Ped < 20 months Aged Out No longe r eligible based on patient's age to complete this topic Care Teams Capacity Analyst Relationship Specialty Start Date End Date Unknown, PCP - General 12/04/23
--- OUTSIDE RECORDS SUMMARY | 2024-08-24 09:45 | XMS_ITS | Encounter Summary ---
Author Organization [facility] [place] [address] [place] [address] Care Team Providers Care Tabulating Machine Mechanic Name Role Phone Unavailable Primary Care Provider Unavailabl e Prior Encounters Date Type Department Care Team Description 07/18/2019 Converted 13x Documents [facility] [address] [place] [address] <No scans attached> 07/18/2019 Converted 13x Documents [facility] [address] [facility] , [facility] [address] [place] [address] <No scans attached> 07/18/2019 Converted CPS Chart Documents [facility] [address] [place] [address] <No scans attached> 07/18/2019 Converted CPS Chart Documents [facility] [place] [facility] [address] [place] [address] <No scans attached> 07/18/2019 Converted CPS Chart Documents [facility] [address] [facility] [address] [place] [address] <No scans attached> 07/18/2019 Converted 13x Documents [facility] [address] [place] [address] <No scans attached> Plan of Treatment Not on file Procedures Procedure Name Priority Date/Time Associated Diagnosis Comments CANCELLED APPOINTMENT Routine 02/24/2013 1:00 AM MDT CANCELLED APPOINTMENT Routine 02/24/2013 1:00 AM MDT TREATMENT OF COMPLICATIONS (POST-SURGICAL) - UNUSUAL CIRCUMSTANCES, BY REPORT Routine 09/30/2011 1:00 AM MDT 8 F RETROGRADE FILLING - PER ROOT Routine 09/22/2011 1:00 AM MDT 8 F APICOECTOMY - ANTERIOR Routine 09/22/2011 1:00 AM MDT 8 BONE REPLACEMENT GRAFT ? RETAINED NATURAL TOOTH ? FIRST SITE IN QUADRANT Routine 09/22/2011 1:00 AM MDT ADDITIONAL X-RAY Routine 09/22/2011 1:00 AM MDT SINGLE X-RAY Routine 09/22/2011 1:00 AM MDT 8 ENDODONTIC THERAPY, PREMOLAR TOOTH (EXCLUDING FINAL SABIANIST) Routine 06/24/2011 1:00 AM MST 4 ENDODONTIC THERAPY, PREMOLAR TOOTH (EXCLUDING FINAL SABIANIST) Routine 06/24/2011 1:00 AM MST PROPHYLAXIS - ADULT Routine 06/24/2011 1 :00 AM MST PERIODIC ORAL EVALUATION - ESTABLISHED PATIENT Routine 06/24/2011 1:00 AM MST DENTAL PLAN ENROLL 1 Routine 05/26/2011 1:00 AM MST 4 RECEMENT CROWN Routine 05/21/2011 1:00 AM MST 4 TREATMENT OF ROOT CANAL OBSTRUCTION; NON-SURGICAL ACCESS Routine 04/01/2011 1:00 AM MDT LIMITED ORAL EVALUATION - PROBLEM FOCUSED Routine 04/01/2011 1:00 AM MDT 4 ENDODONTIC THERAPY, PREMOLAR TOOTH (EXCLUDING FINAL SABIANIST) Routine 04/01/2011 1:00 AM MDT 8 ENDODONTIC THERAPY, ANTERIOR TOOTH (EXCLUDING FINAL SABIANIST) Routine 04/01/2011 1:00 AM MDT 4 LIMITED ORAL EVALUATION - PROBLEM FOCUSED Routine 03/31/2011 1:00 AM MDT BITEWINGS - TWO RADIOGRAPHIC IMAGES Routine 03/31/2011 1:00 AM MDT SINGLE X-RAY Routine 03/31/2011 1:00 AM MDT DENTAL PLAN ENROLL 1 Routine 03/31/2011 1:00 AM MDT OFFICE VISIT FOR OBSERVATION (DURING REGULARLY SCHEDULED HOURS) - NO OTHER SERVICES PERFORMED Routine 01/16/2011 1:00 AM MDT 19 CORE BUILDUP, INCLUDING ANY PINS WHEN REQUIRED Routine 01/09/2011 1:00 AM MDT 19 CEMENT CROWN Routine 01/09/2011 1:00 AM MDT 19 CEREC CROWN POST Routine 01/09/2011 1 :00 AM MDT 19 DO AMALGAM 2 SURFACE Routine 01/07/20 11 1:00 AM MDT OFFICE VISIT FOR OBSERVATION (DURING REGULARLY SCHEDULED HOURS) - NO OTHER SERVICES PERFORMED Routine 01/06/2011 1:00 AM MDT OFFICE VISIT FOR OBSERVATION (DURING REGULARLY SCHEDULED HOURS) - NO OTHER SERVICES PERFORMED Routine 12/20/2010 1:00 AM MDT OCCLUSAL GUARD DELIVERY Routine 05/19/20 11 1:00 AM MDT OCCLUSAL GUARD ? SOFT APPLIANCE, FULL ARCH Routine 11/01/2010 1:00 AM MDT NC X-RAY Routine 10/16/2010 1:00 AM MDT 11 CEMENT CROWN Routine 10/16/2010 1:00 AM MDT 10 CEMENT CROWN Routine 10/16/2010 1:00 AM MDT 9 CEMENT CROWN Routine 10/16/2010 1:00 AM MDT 8 CEMENT CROWN Routine 10/16/2010 1:00 AM MDT 7 CEMENT CROWN Routine 10/16/2010 1:00 AM MDT 6 CEMENT CROWN Routine 10/16/2010 1:00 AM MDT SINGLE X-RAY Routine 10/16/2010 1:00 AM MDT 11 CEREC CROWN ANT Routine 09/26/2010 1: 00 AM MDT 10 CEREC CROWN ANT Routine 09/26/2010 1: 00 AM MDT 9 CEREC CROWN ANT Routine 09/26/2010 1:0 0 AM MDT 8 CEREC CROWN ANT Routine 09/26/2010 1:0 0 AM MDT 7 CEREC CROWN ANT Routine 09/26/2010 1:0 0 AM MDT 6 CEREC CROWN ANT Routine 09/26/2010 1:0 0 AM MDT NC X-RAY Routine 09/24/2010 1:00 AM MDT 4 CEMENT CROWN Routine 09/24/2010 1:00 AM MDT 4 CEMENT CROWN Routine 09/24/2010 1:00 AM MDT 13 CEREC CROWN POST Routine 09/24/2010 1 :00 AM MDT 4 CEREC CROWN POST Routine 09/24/2010 1: 00 AM MDT ADDITIONAL X-RAY Routine 09/24/2010 1:00 AM MDT SINGLE X-RAY Routine 09/24/2010 1:00 AM MDT 3 MOL COMPOSITE FILLING Routine 09/25/19 11 1:00 AM MDT 15 LO COMPOSITE FILLING Routine 09/25/19 11 1:00 AM MDT 20 MO COMPOSITE FILLING Routine 09/10/19 11 1:00 AM MDT 17 BC COMPOSITE FILLING Routine 09/10/19 11 1:00 AM MDT 31 MODL CEREC ONLAY 4 SURF Routine 07/24/2010 1:00 AM MST 29 MOD COMPOSITE FILLING Routine 011 1:00 AM MST 27 DL COMPOSITE FILLING Routine 07/24/19 11 1:00 AM MST 9 ML COMPOSITE FILLING Routine 0 1:00 AM MST 31 MOL AMALGAM 3 SURFACE Routine 010 1:00 AM MST 29 MOD AMALGAM 3 SURFACE Routine 010 1:00 AM MST 4 MOD AMALGAM 3 SURFACE Routine 06/25/20 10 1:00 AM MST 27 DL AMALGAM 2 SURFACE Routine 06/25/20 10 1:00 AM MST 20 MO AMALGAM 2 SURFACE Routine 06/25/20 10 1:00 AM MST 18 MO AMALGAM 2 SURFACE Routine 06/25/20 10 1:00 AM MST 15 LO AMALGAM 2 SURFACE Routine 06/25/20 10 1:00 AM MST 15 MO AMALGAM 2 SURFACE Routine 06/25/20 10 1:00 AM MST 13 DO AMALGAM 2 SURFACE Routine 06/25/20 10 1:00 AM MST 11 DL AMALGAM 2 SURFACE Routine 06/25/20 10 1:00 AM MST 3 MO AMALGAM 2 SURFACE Routine 0 1:00 AM MST 2 LO AMALGAM 2 SURFACE Routine 0 1:00 AM MST 2 MO AMALGAM 2 SURFACE Routine 0 1:00 AM MST 32 O AMALGAM 1 SURFACE Routine 0 1:00 AM MST 19 L AMALGAM 1 SURFACE Routine 0 1:00 AM MST 19 B AMALGAM 1 SURFACE Routine 0 1:00 AM MST 18 L AMALGAM 1 SURFACE Routine 0 1:00 AM MST 17 O AMALGAM 1 SURFACE Routine 0 1:00 AM MST 30 CROWN PFM POST Routine 06/25/2010 1:0 0 AM MST 14 CROWN PFM POST Routine 06/25/2010 1:0 0 AM MST 1 GABINO DECON Routine 06/25/2010 1:00 AM MST LR GABINO DECON/QD Routine 06/25/2010 1:00 AM MST LL GABINO DECON/QD Routine 06/25/2010 1:00 AM MST UL GABINO DECON/QD Routine 06/25/2010 1:00 AM MST LL PERIODONTAL SCALING AND ROOT PLANING - ONE TO THREE TEETH PER QUADRANT Routine 06/25/2010 1:00 AM MST LL PERIODONTAL SCALING AND ROOT PLANING - ONE TO THREE TEETH PER QUADRANT Routine 06/25/2010 1:00 AM MST LL PERIODONTAL SCALING AND ROOT PLANING - ONE TO THREE TEETH PER QUADRANT Routine 06/25/2010 1:00 AM MST LR PERIODONTAL SCALING AND ROOT PLANING - ONE TO THREE TEETH PER QUADRANT Routine 06/25/2010 1:00 AM MST LR PERIODONTAL SCALING AND ROOT PLANING - ONE TO THREE TEETH PER QUADRANT Routine 06/25/2010 1:00 AM MST LR PERIODONTAL SCALING AND ROOT PLANING - ONE TO THREE TEETH PER QUADRANT Routine 06/25/2010 1:00 AM MST UL PERIODONTAL SCALING AND ROOT PLANING - ONE TO THREE TEETH PER QUADRANT Routine 06/25/2010 1:00 AM MST UL PERIODONTAL SCALING AND ROOT PLANING - ONE TO THREE TEETH PER QUADRANT Routine 06/25/2010 1:00 AM MST UL PERIODONTAL SCALING AND ROOT PLANING - ONE TO THREE TEETH PER QUADRANT Routine 06/25/2010 1:00 AM MST UR PERIODONTAL SCALING AND ROOT PLANING - ONE TO THREE TEETH PER QUADRANT Routine 06/25/2010 1:00 AM MST LR ANTIBACT IRR/QUAD Routine 06/25/2010 1:00 AM MST LL ANTIBACT IRR/QUAD Routine 06/25/2010 1:00 AM MST UL ANTIBACT IRR/QUAD Routine 06/25/2010 1:00 AM MST UR ANTIBACT IRR/QUAD Routine 06/25/2010 1:00 AM MST TOPICAL APPLICATION OF FLUORIDE VARNISH Routine 06/25/2010 1:00 AM MST PRODENTEC BUTCH BOTTLE Routine 06/25/2010 1:00 AM MST IPE Routine 06/25/2010 1:00 AM MST PANORAMIC RADIOGRAPHIC IMAGE Routine 06/25/2010 1:00 AM MST BITEWINGS - FOUR RADIOGRAPHIC IMAGES Routine 06/25/2010 1:00 AM MST INTRAORAL PHOTO Routine 06/25/2010 1:00 AM MST INTRAORAL PHOTO Routine 06/25/2010 1:00 AM MST INTRAORAL PHOTO Routine 06/25/2010 1:00 AM MST INTRAORAL PHOTO Routine 06/25/2010 1:00 AM MST INTRAORAL PHOTO Routine 06/25/2010 1:00 AM MST INTRAORAL PHOTO Routine 06/25/2010 1:00 AM MST INTRAORAL PHOTO Routine 06/25/2010 1:00 AM MST INTRAORAL PHOTO Routine 06/25/2010 1:00 AM MST INTRAORAL PHOTO Routine 06/25/2010 1:00 AM MST INTRAORAL PHOTO Routine 06/25/2010 1:00 AM MST 18 B COMPOSITE FILLING Routine 0 1:00 AM MST 22 DIF COMPOSITE FILLING Routine 010 1:00 AM RUST 22 ML COMPOSITE FILLING Routine 06/25/20 10 1:00 AM RUST 11 MF COMPOSITE FILLING Routine 06/25/20 10 1:00 AM RUST 6 ML COMPOSITE FILLING Routine 0 1:00 AM RUST 6 DL COMPOSITE FILLING Routine 0 1:00 AM RUST 10 L COMPOSITE FILLING Routine 0 1:00 AM RUST 7 L COMPOSITE FILLING Routine 06/25/2010 1:00 AM RUST Visit Diagnoses Not on file
--- OUTSIDE RECORDS SUMMARY | 2024-08-24 09:46 | XMS_ITS | Data Portability ---
Author Organization [facility], Main Office Address [address] [place] [address] Care Team Providers Care Housekeeper Child Care Name Role Phone BETO ANTHONY Primary Care Provider Assessment Encounter Date Assessment Date Assessment LastModified by Organization Details LastModified Time 12/04/2023 12/04/2023 This is a 58-year-old lady with a history of C7 vertebral body fracture. The injury is a flexion compression kind of an injury. There is no evidence of posterior element involvement on evaluation of her CT scan. There is no posterior spinal tenderness. I extensively explained the findings to the patient and her family members. This appears to be a stable fracture configuration which is being treated in a hard cervical collar. We have fitted her a Rincon collar for stabilization. The patient is quite comfortable in the collar. We plan to treat it as such. I will follow her again in 2 weeks at which stage we will get more x-rays done. Will get baseline x-rays done today. Not available 12/04/2023 13:08:00 12/18/2023 12/18/2023 This is a 58-year-old lady with a history of C7 fracture being treated nonoperatively with a hard cervical collar. She seems to have some tenderness in the cervical spine which does not point tenderness but certainly different from the last time when I saw her. I evaluated the x-rays of her cervical spine from 2 weeks ago with what she had yesterday. There seems to be no significant changes and the fracture configuration appears to be stable. I showed these images to the patient and her family member. While in my office, she had a small seizure which was witnessed by me. She subsequently had some postictal drowsiness. I have currently asked them to take her to the emergency room on the way back to home. I am also requesting MRI of the cervical spine to rule out any ligamentous injuries that may give us a better idea of the cervical spine injury. I plan to see her back in 2 weeks, or sooner in case her symptoms are getting worse. She will be seeing her primary care physician in the next few days for further evaluation of her general health. The family understands that they will be able to take her to the emergency department or her primary care physician and a reasonably safe way. She has recovered well enough that she does not seem to need a emergency carrier. Not available 12/18/2023 11:17:19 Plan of Treatment Reminders Order Date Submit Date Provider Last Modified By Organization Details Last Modified Time Details Appointments None recorded. Lab None recorded. Referral None recorded. Procedures None recorded. Surgeries None recorded. Imaging XR, cervical spine, 2 or 3 view 2023 024 [email or web address] ([facility] [address], [place], [address], 4 10:24:19 MRI, cervical spine, w/o contrast [facility] ([facility]), [address], [place], [address], 4 10:24:18 XR, cervical spine, 4 or 5 view 2023 024 [facility] ([facility]), [address], [place], [address], 4 09:58:32 Medication Orders None recorded. Patient TargetsNo targets recorded. Patient InstructionsNo instructions recorded. Reason for Referral None Reported. Results Created Date Observation Date Name Description Value Unit Range Abnormal Flag Note LastModifiedBy Organization Detail LastModifiedTime 12/16/19 24 12/04/2023 XR, cervi benito spine , 4 or 5 view No observ ation record ed. [facility] ([facility]) [address], [place], [address], 12/18/2023 12:35:09 12/17/19 24 12/17/2023 xr cervi benito spine AP & lat only Cervic al spine, AP and latera l imagin g. Indica tion: Follow -up C7 fractu re. Compar isons: 2023. Findin gs: C7 is not well visual ized despit e perfor lisa a swimme r's view. There appear s to be modera te C7 verteb ral body height loss, unchan ged. Mild degene rative discog enic and endpla te change s presen t within the mid and lower cervic al spine, unchan ged. Impres linda: 1. C7 incomp letely visual ized due to overla pping soft tissue s. Sugges t CT for more accura te evalua tion. 2. There appear s to be modera te C7 verteb ral body height loss, withou t signif icant interv al change . Short 3. Mild degene rative discog enic and endpla te change s within the mid and lower cervic al spine. SESSIO N: Not applic able. Report review ed and signed by : Dr. Olivia Griggs on 024 10:45 AM. Workst ation Name - OK -PC Pt is in a collar , did a swimme rs to help visual ize C-7. Pt tried their best to raise their arm up for it, best images obtain ed. Unknow n ARRAY( [id number]) ARRAY( [id number]) ARRAY( [id number]) ARRAY( [id number]) ARRAY( [id number]) ARRAY( [id number]) ARRAY( [id number]) [facility] ([facility]) [facility], [place], [address], 12/18/2023 12:35:03 Result Notes None recorded. Problems Name Problem SNOMED Code Status Onset Date Resolution Date Notes Provider Name and Address Organization Details Recorded Time Closed fracture of seventh cervical vertebra 462027211 Active 024 Drake Bass MD [address] [facility] [place], [address] , [place] [facility] 4 13:02:07 Neck pain 21853169 Active 024 Drake Bass MD [address] [facility] [place], [address] , [place] [facility] 4 13:02:12 Fracture of cervical spine 391119432 Active 024 Drake Bass MD [address] [facility] [place], [address] , [place] [facility] 4 14:48:45 Seizure disorder 967886859 Active 024 Drake Bass MD [address] [place] [address], [address] , [place] [facility] 4 11:12:29 Problem Notes None recorded. Procedures Surgical History Date Name Laterality Status Provider Name and Address Organization Details Recorded Time tonsillectomy completed Drake Bass MD [address] [facility] [place], [address], [place] [facility] 12/04/2023 12:21:11 Imaging Results Imaging Date Name Status LastModified by Organiz ation Details LastModified Time 12/04/2023 XR, cervical spine, 4 or 5 view completed [facility] ([facility]) [address] [place] [address], [place], [address], 12/18/2023 12:35:09 12/17/2023 xr cervical spine AP & lat only completed [facility] ([facility]) [facility], [place], [address], 12/18/2023 12:35:03 Procedure Notes None recorded. Medical Equipment None Reported. Allergies No known drug allergies Medications Name Sig Start Date Stop Date Status Note LastModified by Organization Details LastModified Time cyclobenzaprin e 10 mg tablet TAKE ONE TABLET BY MOUTH 3 TIMES A DAY NEEDED FOR MUSCLE SPASM FOR 7 DAYS active Not Available Not Available No t Available atorvastatin 20 mg tablet TAKE 1 TABLET ORALLY AT BEDTIME active Not Available Not Available No t Available gabapentin 400 mg capsule TAKE 2 CAPSULES BY MOUTH EVERY DAY NEEDED FOR PAIN active Not Available Not Available No t Available tramadol 50 mg tablet active Not Available Not Available Not Available ondansetron 8 mg disintegrating tablet TAKE 1 TABLET EVERY 8 HOURS NEEDED FOR NAUSEA AND VOMITING active Not Available Not Available No t Available lorazepam 0.5 mg tablet TAKE 1 TABLET BY MOUTH DAILY NEEDED FOR ANXIETY FOR 28 DAYS active Not Available Not Available No t Available bupropion HCl 75 mg tablet TAKE 1 TABLET BY MOUTH TWICE A DAY active Not Available Not Available No t Available gabapentin 300 mg capsule TAKE 1 CAPSULE BY MOUTH 3 TIMES A DAY NEEDED FOR PAIN FOR 90 DAYS active Not Available Not Available No t Available gabapentin 100 mg capsule TAKE 2 CAPSULES BY MOUTH EVERY DAY active Not Available Not Available No t Available ondansetron 4 mg disintegrating tablet active Not Available Not Available Not Available fluticasone propionate 50 mcg/actuation nasal spray,suspensi on SPRAY 1 SPRAY INTO EACH NOSTRIL EVERY DAY active Not Available Not Available No t Available oxycodone 5 mg tablet active Not Available Not Available Not Available Vitals Date Recorded Body height Body mass index (BMI) Body weight Provider Name and Address Organization Details Last Updated DateTime 12/04/2023 167.64 cm 26.5 kg/m2 31534.15 mike Bass MD [address] [place] [address], [address], [place] [facility] 12/04/2023 12:18:47 Date Recorded Body height Body mass index (BMI) Body weight Provider Name and Address Organization Details Last Updated DateTime 12/18/2023 167.64 cm 26.5 kg/m2 50034.15 mike Bass MD [address] [place] [address], [address], [place] [facility] 12/18/2023 10:58:15 Social History Question Answer Notes LastModified by Organizat ion Details LastModified Time Tobacco Smoking Status Former Smoker Drake Bass MD [address] [place] [address], [address], [place] [facility] 12/04/2023 12:20:14 What Is Your Level Of Alcohol Consumption? None Information not available 12/04/2023 Are You Blind Or Do You Have Difficulty Seeing? No Information not available 12/04/2023 Are You Currently Employed? Yes Information not available 12/04/2023 Are You Deaf Or Do You Have Serious Difficulty Hearing? 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 16+yearssinceljaylon aparicio Information not available 12/04/2023 Do You Work In Healthcare? No Information not available 12/04/2023 What Was The Date Of Your Most Recent Tobacco Screening? 12/04/2023 Information not available 12/04/2023 What Is Your Current Pack Years? 10packyears Information not available 12/04/2023 At What Age Did You Start Smoking Tobacco? 18 Information not available 12/04/2023 How Much Tobacco Do You Smoke? No Information not available 12/04/2023 Do You Use Any Illicit Or Recreational Drugs? No Information not available 12/04/2023 Has Tobacco Cessation Counseling Been Provided? Yes Information not available 12/04/2023 On What Date Was Tobacco Cessation Counseling Provided? 12/04/2023 Information not available 12/04/2023 How Many Years Have You Smoked Tobacco? 10 Information not available 12/04/2023 Are You Currently In School? No Information not available 12/04/2023 Do You Or Have You Ever Used Any Other Forms Of Tobacco Or Nicotine? No Information not available 12/04/2023 Sex: Unknown Functional Status Question Answer Note LastModified by Organizat ion Details LastModified Time Do you have difficulty walking or climbing stairs? No Information not available 12/04/2023 Do you have transportation difficulties? No Information not available 12/04/2023 Do you have difficulty doing errands alone? No Information not available 12/04/2023 Are you able to care for yourself? Yes Information not available 12/04/2023 Do you have difficulty dressing or bathing? No Information not available 12/04/2023 Mental Status Question Answer Note LastModified by Organization D etails LastModified Time Do you have difficulty concentrating, remembering or making decisions? No Information no t available 12/04/2023 Family History Nothing Reported. Medical History Condition Response Anxiety/Depression Y Seizures/Epilepsy Y Arthritis Y High Cholesterol Y Gynecological HistoryNo gynecological history recorded. Obstetrics History GPAL:G 0 P 0 0 0 0 Past Encounters Encounter ID Performer Location Encounter Start Date Encounter Closed Date Diagnosis/Indication Diagnosis SNOMED-CT Code Diagnosis ICD10 Code Diagnosis Note [id number] Drake Bass MD Main Office [address] [place] [address] 12/04/2023 12:01:15 12/18/2023 09:58:32 Closed fracture of seventh cervical vertebra 090702407 S12.600A Neck pain 51460277 M54.2 783 Drake Bass MD Main Office [address] [place] [address] 12/18/2023 10:12:59 03/03/2024 10:24:18 Fracture of cervical spine 611107472 S12.9XXD Closed fra cture of seventh cervical vertebra 247631365 S12.600A Neck pain 46338601 M54.2 Seizure disorder 9873792 02 G40.909 Health Concerns Section Related Observation LastModified by Organization Detai ls LastModified Time None Recorded Concern Status LastModified by Organization Details LastModified Time None Recorded Advance Directives Directive None Recorded Payers Encounter Date Sequence Insurance Name Policy Number Policy Ramirez Covered Member ID Ramirez Member ID Guarantor Name 12/04/2023 1 [facility] [id number] Elena L Tastad [id number] Linee Perroncel 12/18/2023 1 [facility] ([place]) [id number] Elena L Tastad [id number] Linee Perroncel Notes Date Note Type Note Provider Name and Address Organization Details Recorded Time 12/04/2023 text/html This is a 58-year-old lady who was referred to me with a history of fall off a ladder. This happened yesterday following which she was taken to the emergency department where she was scanned for her cervical spine. She was found to have a C7 fracture. She does not report any neurologic symptoms or radicular symptoms in the upper extremity. Drake Bass MD [address] [place], [address], [facility] 12/04/2023 13:08:05 12/18/2023 text/html This is a 58-year-old lady who had a history of C7 cervical spine fracture approximately 2 weeks ago. This resulted from a fall from a ladder. The patient does not remember if she blacked out or if she had a sudden loss of consciousness prior to falling off the ladder. Interestingly, while the patient was in the office and being examined, she had sudden seizure-like activity for approximately 20 seconds. She was generally little shaky and had twitching of her muscles. She was not responsive for those 20 seconds and she had postictal lethargy and drowsiness. She did not have any incontinence. She had complete recovery of her senses Drake Bass MD [address] [place], [address], [place] [facility] 12/18/2023 11:17:52 OBGyn Episode No OBEpisode recorded.
== END 2024-08-24 09:44 | disposition home or self-care (01) ==
PROVIDERS: PCP Family Medicine; Visit Provider Family Medicine
DX: Z00.00 Encounter for general adult medical examination without abnormal findings (principal); M54.2 Cervicalgia; M62.838 Other muscle spasm; E78.5 Hyperlipidemia, unspecified; M85.80 Other specified disorders of bone density and structure, unspecified site; D64.9 Anemia, unspecified; Z12.11 Encounter for screening for malignant neoplasm of colon; Z12.31 Encounter for screening mammogram for malignant neoplasm of breast

== ENCOUNTER → 2024-08-24 08:57 | Outpatient (BNVA) | payer OTHER, SELFPAY | PROVIDERS: PCP Family Medicine; Visit Provider Family Medicine | DX: Z00.00 Encounter for general adult medical examination without abnormal findings (principal); M54.2 Cervicalgia; M62.838 Other muscle spasm; E78.5 Hyperlipidemia, unspecified; M85.80 Other specified disorders of bone density and structure, unspecified site; D64.9 Anemia, unspecified | CPT/HCPCS: 96127 ==

== ENCOUNTER 2024-10-11 08:46 | Outpatient (AMB) | payer OTHER, SELFPAY ==
--- NOTE | 2024-10-11 08:56 | MHC.OFFVIS ---
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 Patient had a fall from a roof on 12/03/23, she was seen [place] and had followed up with a neurosurgeon [place] She transferred her care to Neuro Spine here at [facility] [place], she was to follow up as needed. Patient was seen with her PCP, Dr. Alvarez who referred patient to physiatry for clearance. Patient reports her healing has been good however with the cold weather she had significant muscle spasms, however recently she felt this has improved. Her current pain is located at the left side of the neck and at times in the middle of her neck. She describes her She has completed PT and continues to do at home exercises. Patient would like to discuss returning back to activities such as jogging or riding her bike. Allergies kiwi [KIWI] Allergy (Severe, Verified 10/11/24 08:58) THROAT SWELLING artur [ARTUR] Allergy (Severe, Verified 10/11/24 08:58) THROAT SWELLING pineapple [PINEAPPLE] Allergy (Severe, Verified 10/11/24 08:58) THROAT SWELLING Medication List - Last Reconciled 10/11/24 by Tierra Chapman MD atorvastatin 20 mg PO BEDTIME 30 days bupropion HCl 75 mg PO BID calcium carbonate 500 mg PO DAILY 30 days cholecalciferol (vitamin D3) 50 mcg PO DAILY cyclobenzaprine 10 mg PO TID PRN 7 days fluticasone propionate 50 mcg/actuation 1 spray intranasal DAILY 90 days gabapentin 100 mg PO DAILY PRN gabapentin 400 mg PO DAILY 30 days lorazepam 0.5 mg PO DAILY PRN 28 days HPI Comments Details: Patient had a fall last year. Had C7 fracture, treated conservatively. See notes from neuro spine below. Reviewed notes from PCP. Patient complained of neck pain and muscle spasms. He was referred to PT. Reports was having spasms over the winter, none since spring. But still now having left sided neck tightness. Still shows me some stiffness on cervical ROM. No radiation to arm. No associated numbness. No weakness on legs. Rarely could have headache related to stifness, but none since spring. No swallowing problems. Patient wants to try mountain bike or jog but PCP needed clearance. She finished PT, successfully, continues HEP. Workout 4 days/week doing TRX. 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 [facility] Medical History Broken ribs Broken ankle Vitamin D deficiency Exercise-induced asthma Atypical chest pain Surgical History History of tonsillectomy Family History Mother Mental problem Father Mental problem Substance abuse Social History (Updated 10/11/24 @ 08:58 by DO Soni) Household Members: Spouse Housing: House Alcohol intake: never Patient Tobacco Use Status: Former Tobacco user Tobacco use type: Cigarette e-Cigarette/Vaping Use: Never Used Second Hand Smoke Exposure: Yes Substance Use Type: Marijuana service: No Current occupational status: employed 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 Patient was appropriately conversant and oriented. Good historian. MSK: Inspection reveals appropriate head and neck positioning. No pain with palpation over the neck musculature. There is some tightness on upper trapezius bilateral. No tenderness over SCM are splenius. No tenderness over paraspinals. No tenderness over cervical, thoracic, lumbar spinous processes. She does have some limited range of motion when looking to the right, very subtle, and pain on cervical paraspinals when looking down. Spurling's sign negative. No scapular winging. Bilateral shoulder, elbow and wrist ROM WNL. No ligamentous laxity or crepitance. No increased effusion. No specific abnormalities or instability found on inspection and palpation of the spine and extremities. Strength is 5/5 in all muscle groups tested. No increased tone noted. Neurological: Mood appears normal, good affect, and appropriate for the circumstances. Neurologic examination of the upper and lower extremities was nonfocal with intact sensation, muscle stretch reflexes and without focal motor deficits. Srinivasan?s negative bilaterally. Gait is non-antalgic without loss of balance. Results Reviewed Results Reviewed: I independently reviewed the results of the following: Cervical x-ray 01/15/2024 mentioned a C7 fracture. Straightening of lordosis. DEXA scan 10/20 reported osteopenia. Ordering Physician: Alberto Alvarez MD Date of Service: 01/15/24 Procedure(s): XR cervical spine 3V Accession Number(s): [id number] cc: Alberto Alvarez MD~ EXAMINATION: XR CERVICAL SPINE CLINICAL INFORMATION: Unspecified displaced fracture of seventh cervical vertebra. COMPARISON: None available. TECHNIQUE: 4 views of the cervical spine. FINDINGS: Straightening of the normal cervical lordosis. Diffuse demineralization. Heterogeneous amorphous densities in the soft tissues anterior to the mid cervical spine may represent calcifications, possibly cartilaginous. Multilevel cervical spondylosis. Compression fracture of C7 vertebral body difficult to evaluate due to overlying bone and soft tissue structures. XR/XR cervical spine 3V IMPRESSION: 1. Compression fracture of C7 vertebral body difficult to evaluate due to overlying bony and soft tissue structures. Additional imaging with CT scan or MRI recommended. 2. Heterogeneous amorphous densities in the soft tissues anterior to the mid cervical spine may represent calcifications, possibly cartilaginous. I reviewed records from the following: PCP Notes from neuro spine: Tracey is a pleasant 58 y/o F who is self referred to our office for a cervical spine fracture at C7. She reports an inciting incident of a fall off a ladder in early November. She was evaluated by a local emergency department in [place], by her primary care, and by Drake Bass with [facility] in [place]. She was placed in a cervical hard collar by this spine service. After reviewing their consult notes it appears they believed the fracture was self limiting, requiring no significant inervention. She is now >2 months out from the inciting incident, and states she feels much better than she did previously. She reports no pain, is taking no pain medications, and has taken the collar off several times without issue. She lives in [place] in [facility] interested in having her spine care continued with our service so she does not have to travel to [place] any longer. For these reasons I advised her to transition to a soft collar for comfort as needed. There is no need for continued routine follow-up with our service, she may follow up with her primary care physician shay. For these reasons I advised her to transition to a soft collar for comfort as needed. There is no need for continued routine follow-up with our service, she may follow up with her primary care physician shay. Assessment & Plan Assessment & Plan (1) Muscle spasm: Code(s): M62.838 - Other muscle spasm Category: Medical (2) C7 cervical fracture: Comment: fall 12/03/2023, treated nonsurgically Code(s): S12.600A - Unspecified displaced fracture of seventh cervical vertebra, initial encounter for closed fracture Category: Medical Qualifiers: Encounter type: sequela Fracture type: closed Fracture morphology: other fracture Fracture alignment: nondisplaced Qualified Code(s): S12.691S - Other nondisplaced fracture of seventh cervical vertebra, sequela Plan Myofascial pain with history of C7 fracture that was treated conservatively. Patient does not show any neurologic deficits, or signs of cervical radiculopathy or myelopathy. She does have some limited range of motion when looking to the right, very subtle, and pain on cervical paraspinals when looking down. Continue exercises taught by PT, may continue TRX. We talked about activities that are safe for her and what to avoid for now. She may ?walk to run . Risk of any biking is falling off. Avoid softball per now because of extreme cervical range of motion that is required. We talked about high calcium and vitamin-D diet, and exercise, to combat development of osteoporosis. We talked about red flags to watch out for. Assessment and plan discussed with patient, and patient was agreeable. All questions were answered thoroughly. Follow up as needed. Total of 45 minutes spent today including chart review, results review, history taking, physical examination, discussion of assessment and plan, and coordination of care. Tierra Chapman MD, VIELKA Board Certified, [place] Board [employer] and Rehabilitation (ABPMR) Board Certified, [place] Board of Electrodiagnostic Medicine (ABEM) Coding Level of Care Code New Pt Level 4 (10181) Diagnoses Muscle spasm M62.838 Other closed nondisplaced fracture of seventh cervical vertebra, sequela S12.691S Encounter type: sequela Fracture type: closed Fracture morphology: other fracture Fracture alignment: nondisplaced
--- OUTSIDE RECORDS SUMMARY | 2024-10-11 09:09 | XMS_ITS ---
Author Name [facility] Organization Unknown Results Test Name/Text Value Interpretation Date Range Source Calcium SerPl-mCnc 9.8mg/dL Normal [id number] 8.7 - 10 .5 [facility] BUN SerPl-mCnc 13mg/dL Normal [id number] 8 - 21 HH CCT Creat SerPl-mCnc 0.8mg/dL Normal [id number] 0.4 - 1.1 H[facility]CT GFR/BSA.pred SerPlBld IJR-LAC-UyXBoi 85 Normal [id number] 59 - H[facility]CT Chloride SerPl-sCnc 101mmol/L Normal [id number] 98 - 10 7 [facility] BUN/Creat SerPl 16Ratio Normal [id number] 10 - 25 H HCCT CO2 SerPl-sCnc 22mmol/L Normal [id number] 22 - 33 HH CCT Anion Gap Bld-sCnc 14 Normal [id number] 7 - 17 [facility] Potassium SerPl-sCnc 4.2mmol/L Normal [id number] 3.4 - 5.3 [facility] Glucose SerPl-mCnc 144mg/dL Above high normal [id number] 65 - 99 [facility] Sodium SerPl-sCnc 137mmol/L Normal [id number] 136 - 145 [facility] Neutrophils num Bld Auto 5.68Thou/uL Normal [id number] 2 - 7.5 [facility] Monocytes num Bld Auto 0.38Thou/uL Normal [id number] 0.2 - 1.5 [facility] Eosinophil num Bld Auto 0Thou/uL Normal [id number] 0 - 0.7 [facility] WBC num Bld Auto 6.8Thou/uL Normal [id number] 4 - 11 H[facility]CT MCHC RBC Auto-mCnc 32.5g/dL Normal [id number] 30 - 36 [facility] Monocytes/leuk NFr Bld Auto 5.6% Normal [id number] H[facility] Hct VFr Bld Auto 35.7% Normal [id number] 35 - 47 [facility] RBC num Bld Auto 3.81Mil/uL Below low normal [id number] 4 - 5.4 [facility]CT RDW RBC Auto-Rto 12.3% Normal [id number] 11.5 - 14. 5 [facility] PMV Bld Auto 8.7fL Normal [id number] 7.5 - 12.[address] Eosinophil/leuk NFr Bld Auto 0% Normal [id number] H[facility]CT MCH RBC Qn Auto 30.4pg Normal [id number] 27 - 31 H [facility]CT Basophils/leuk NFr Bld Auto 0.3% Normal [id number] [facility] Basophils num Bld Auto 0.02Thou/uL Normal [id number] 0 - 0.2 [facility] Platelet num Bld Auto 331Thou/uL Normal [id number] 150 - 450 [facility] Neutrophils/leuk NFr Bld Auto 84.2% Normal [id number] CCT MCV RBC Auto 94fL Normal [id number] 80 - 100 [facility]CC T Lymphocytes/leuk NFr Bld Auto 9.6% Normal [id number] H[facility]CT Lymphocytes num Bld Auto 0.65Thou/uL Below low normal [id number] 1.5 - 4.5 H[facility]CT Imm Granulocytes/leuk NFr Bld Auto 0.3% Normal [id number] [facility]CT Hgb Bld-mCnc 11.6g/dL Below low normal [id number] 11.7 - 15.7 [facility] Imm Granulocytes num Bld Auto 0.02Thou/uL Normal [id number] 0 - 0.1 [facility]CT Globulin Ser Calc-mCnc 2.8g/dL Normal [id number] 1.5 - 3.9 [facility]CT ALT SerPl-cCnc 22U/L Normal [id number] 10 - 50 HH CCT AST SerPl-cCnc 38U/L Normal [id number] 10 - 50 HH CCT GFR/BSA.pred SerPlBld QQP-IVS-JwHOib Normal [id number] 59 - H[facility]CT Albumin SerPl-mCnc 4.1g/dL Normal [id number] 3.5 - 5 [facility]CT Albumin/Glob SerPl 1.5Ratio Normal [id number] 1 - 3 [facility]CT Creat SerPl-mCnc 0.9mg/dL Normal [id number] 0.4 - 1.1 [facility]CT Bilirub SerPl-mCnc 0.2mg/dL Normal [id number] 0.2 - 1 [facility]CT Anion Gap Bld-sCnc 10 Normal [id number] 7 - 17 [facility]CT Sodium SerPl-sCnc 137mmol/L Normal [id number] 136 - 145 [facility]CT Potassium SerPl-sCnc 3.6mmol/L Normal [id number] 3.4 - 5.3 [facility]CT Chloride SerPl-sCnc 103mmol/L Normal [id number] 98 - 10 7 [facility]CT Glucose SerPl-mCnc 93mg/dL Normal [id number] 65 - 99 H[facility]CT Prot SerPl-mCnc 6.9g/dL Normal [id number] 6.3 - 8.3 H HCCT BUN/Creat SerPl 17Ratio Normal [id number] 10 - 25 H HCCT Calcium SerPl-mCnc 8.9mg/dL Normal [id number] 8.7 - 10 .5 [facility]CT CO2 SerPl-sCnc 24mmol/L Normal [id number] 22 - 33 HH CCT BUN SerPl-mCnc 15mg/dL Normal [id number] 8 - 21 HH CCT ALP SerPl-cCnc 66U/L Normal [id number] 32 - 122 HH CCT INR PPP 0.9 Normal [id number] [facility]CT Prothrombin time 10.5seconds Normal [id number] 10 - 13. 5 [facility] Imm Granulocytes/leuk NFr Bld Auto 1.2% Normal [id number] [facility]CT Lymphocytes/leuk NFr Bld Auto 26.3% Normal [id number] [facility]CT PMV Bld Auto 8.3fL Normal [id number] 7.5 - 12.[address] Monocytes num Bld Auto 0.41Thou/uL Normal [id number] 0.2 - 1.5 HHCCT Hct VFr Bld Auto 33.2% Below low normal [id number] 35 - 47 [facility]CT Neutrophils num Bld Auto 2.99Thou/uL Normal [id number] 2 - 7.5 [facility]CT Neutrophils/leuk NFr Bld Auto 60.9% Normal [id number] [facility]CT Basophils/leuk NFr Bld Auto 0.8% Normal [id number] [facility] Basophils num Bld Auto 0.04Thou/uL Normal [id number] 0 - 0.2 [facility]CT Monocytes/leuk NFr Bld Auto 8.4% Normal [id number] H[facility]CT Eosinophil num Bld Auto 0.12Thou/uL Normal [id number] 0 - 0.7 HHCCT MCH RBC Qn Auto 30.9pg Normal [id number] 27 - 31 H HCCT Eosinophil/leuk NFr Bld Auto 2.4% Normal [id number] [facility]CT Imm Granulocytes num Bld Auto 0.06Thou/uL Normal [id number] 0 - 0.1 H[facility]CT RDW RBC Auto-Rto 12.5% Normal [id number] 11.5 - 14. 5 [facility]CT Platelet num Bld Auto 259Thou/uL Normal [id number] 150 - 450 H[facility]CT MCHC RBC Auto-mCnc 32.5g/dL Normal [id number] 30 - 36 HHCCT MCV RBC Auto 95fL Normal [id number] 80 - 100 [facility] T WBC num Bld Auto 4.9Thou/uL Normal [id number] 4 - 11 [facility]CT RBC num Bld Auto 3.5Mil/uL Below low normal [id number] 4 - 5.4 HHCCT Hgb Bld-mCnc 10.8g/dL Below low normal [id number] 11.7 - 15.7 H[facility]CT Lymphocytes num Bld Auto 1.29Thou/uL Below low normal [id number] 1.5 - 4.5 HHCCT Anticoagulant OTHER AGENT OR UNKNOWN Normal [id number] [facility] Encounters Encounter Type Encounter Reason Primary Diagnosis Location Date Emergency Nausea with vomiting, unspecified Nausea with vomiting, unspecified [facility] 12/04/2023 Emergency Unspecified displaced fracture of seventh cervical vertebra, initial encounter for closed fracture Unspecified displaced fracture of seventh cervical vertebra, initial encounter for closed fracture [facility] 12/03/2023 Care Team Organization Name Specialty Phone Email Start Date End Da te [facility] 12/04/2023 09/14/2024 [facility] NO PCP Primary Care 12/04/2023 [facility] 12/03/2023
--- OUTSIDE RECORDS SUMMARY | 2024-10-11 09:09 | XMS_ITS | Clinical Summary ---
Author Organization [facility] Address [address] [place] [address] Care Team Providers Care Alloy Weigher Name Role Phone Unknown, Primary Care Provider [...] age to complete this topic Care Teams Alloy Weigher Relationship Specialty Start Date End Date Unknown, PCP - General 12/04/23
--- OUTSIDE RECORDS SUMMARY | 2024-10-11 09:10 | XMS_ITS | Clinical Summary ---
Author Organization [facility] Address [address] [place] [address] Care Team Providers Care Scale Clerk Name Role Phone Pcp, No Primary [...] (1 of 3 - 19+ 3-dose series) 10/28 Pap Smear (Ages 21-65) 1985 Mammogram 2004 Colonoscopy 2009 Pneumococcal Vaccines 50+ (1 of 1 - PCV) 2014 Zoster (Shingles) Vaccine (1 of 2) 2014 Influenza Vaccine 01/28/2024 COVID-19 Vaccine ( - season) 2024 Care Teams Scale Clerk Relationship Specialty Start Date End Date Pcp, No PCP - General General Medicine 12/04/23
--- OUTSIDE RECORDS SUMMARY | 2024-10-11 09:10 | XMS_ITS | Data Portability ---
Author Organization [facility], Main Office Address [address] [place] [address] Care Team Providers Care Human Resources Temp Name Role Phone BETO ANTHONY Primary Care Provider [phone] Assessment Encounter Date Assessment Date Assessment LastModified [...] cervical collar. We have fitted her a Fallon collar for stabilization. The patient is quite [...] 3 view 2023 024 [email or web address] 3 [facility] ([facility]), [address], [place], [address], 4 10:24:19 MRI, cervical spine[facility] w/o contrast [email or web address] ([facility]), [address], [place], [address], 4 10:24:18 XR, cervical spine, 4 or 5 view 2023 024 [facility] ([facility]), [address], [place], [address], 4 09:58:32 Medication Orders None recorded. Patient TargetsNo targets recorded. Patient InstructionsNo instructions recorded. Reason for Referral None Reported. Results Created Date Observation Date Name Description Value Unit Range Abnormal Flag Note LastModifiedBy Organization Detail LastModifiedTime 12/16/19 24 12/04/2023 XR, cervi benito spine , 4 or 5 view No observ ation record ed. [facility] ([facility]) [address], [place], [address], 12/18/2023 12:35:09 12/17/19 24 12/17/2023 xr cervi [...] best images obtain ed. Unknow n ARRAY( [id number]) ARRAY( [id number] [id number]) ARRAY( [id number] 6198) ARRAY( [id number] 8298) ARRAY( [id number] 5d10) ARRAY( [id number] 6460) ARRAY( [id number] [id number]) [facility] ([facility]) Any [facility], [place], [address], 12/18/2023 12:35:03 Result Notes None recorded. Problems Name Problem SNOMED Code Status Onset Date Resolution Date Notes Provider Name and Address Organization Details Recorded Time Closed fracture of seventh cervical vertebra 437380356 Active 024 Drake Bass MD [address] [place], [address] , [place] [facility] 4 13:02:07 Neck pain 47221037 Active 024 Drake Bass MD [address] [place], [address] , [place] [facility] 4 13:02:12 Fracture of cervical spine 785987742 Active 024 Drake Bass MD [address] [place], [address] , [place] [facility] 4 14:48:45 Seizure disorder 523463777 Active 024 Drake Bass MD [address] [place] [address], [phone] , [place] [facility] 4 11:12:29 Problem Notes None recorded. Procedures Surgical History Date Name Laterality Status Provider Name and Address Organization Details Recorded Time tonsillectomy completed Drake Bass MD [address] [place], [address], [place] [facility] 12/04/2023 12:21:11 Imaging Results Imaging Date Name Status LastModified by Organiz ation Details LastModified Time 12/04/2023 XR, cervical spine, 4 or 5 view completed [facility] ([facility]) [address] [place] [address], [place], [address], 12/18/2023 12:35:09 12/17/2023 xr cervical spine AP & lat only completed [facility] ([facility]) [facility], [place], [address], 12/18/2023 12:35:03 Procedure Notes None recorded. Medical [...] Updated DateTime 12/04/2023 167.64 cm 26.5 kg/m2 19855.15 mike Bass MD [address] [place] [address], [phone], [place] [facility] 12/04/2023 12:18:47 Date Recorded Body height Body mass index (BMI) Body weight Provider Name and Address Organization Details Last Updated DateTime 12/18/2023 167.64 cm 26.5 kg/m2 96361.15 mike Bass MD [address] [place] [address], [phone], [place] [facility] 12/18/2023 10:58:15 Social History Question Answer Notes LastModified by Organizat ion Details LastModified Time Tobacco Smoking Status Former Smoker Drake Bass MD [address] [place] [address], [phone], [place] [facility] 12/04/2023 12:20:14 What Is Your Level Of [...] Reported. Medical History Condition Response Anxiety/Depression Y Arthritis Y Seizures/Epilepsy Y High Cholesterol Y Gynecological HistoryNo gynecological history recorded. Obstetrics History GPAL:G 0 P 0 0 0 0 Past Encounters Encounter ID Performer Location Encounter Start Date Encounter Closed Date Diagnosis/Indication Diagnosis SNOMED-CT Code Diagnosis ICD10 Code Diagnosis Note [id number] Drake Bass MD Main Office [address] [place], [place] [phone] 12/04/2023 12:01:15 12/18/2023 09:58:32 Closed fracture of seventh cervical vertebra 996793573 S12.600A Neck pain 74006244 M54.2 [id number] Drake Bass MD Main Office [address] [place] [phone] 12/18/2023 10:12:59 03/03/2024 10:24:18 Fracture of cervical spine 950034371 S12.9XXD Closed fra cture of seventh cervical vertebra 874860697 S12.600A Neck pain 48100080 M54.2 Seizure disorder 0244915 02 G40.909 Health Concerns Section Related Observation LastModified by Organization Detai ls LastModified Time None Recorded Concern Status LastModified by Organization Details LastModified Time None Recorded Advance Directives Directive None Recorded Payers Encounter Date Sequence Insurance Name Policy Number Policy Ramirez Covered Member ID Ramirez Member ID Guarantor Name 12/04/2023 1 [facility] [id number] Elena L Tastad [id number] Linee Perroncel 12/18/2023 1 [employer] [id number] Elena L Tastad [id number] Linee Perroncel Notes Date Note Type Note [...] in the upper extremity. Drake Bass MD [address] [place] [address], [phone], [place] [facility] [employer] 12/04/2023 13:08:05 12/18/2023 text/html This is a [...] recovery of her senses Drake Bass MD [address] [place] [address], [phone], [place] [facility] 12/18/2023 11:17:52 OBGyn Episode No OBEpisode recorded.
[2024-10-11 09:15] VITALS: BMI 26.1
== END 2024-10-11 09:38 | disposition home or self-care (01) ==
LOC: HO.HOS 08:48
PROVIDERS: PCP Family Medicine; Visit Provider Physical Medicine & Rehabilitation
DX: S12.691D Other nondisplaced fracture of seventh cervical vertebra, subsequent encounter for fracture with routine healing (principal); M62.838 Other muscle spasm
CPT/HCPCS: 99204

== ENCOUNTER → 2024-10-11 08:46 | Outpatient (BNVA) | payer OTHER, SELFPAY | PROVIDERS: PCP Family Medicine; Visit Provider Physical Medicine & Rehabilitation ==

== ENCOUNTER 2024-11-01 07:13 | Outpatient (REF) | payer OTHER, SELFPAY ==
--- NOTE | ~2024-11-01 | MM_ITS ---
EXAMINATION: MM SCREENING DIGITAL BREAST TOMOSYNTHESIS, BILATERAL CLINICAL INFORMATION: Screening. Asymptomatic. COMPARISON: Mammography: Comparison is made with available priors TECHNIQUE: Digital breast mammography with tomosynthesis is performed in both the craniocaudal and mediolateral oblique views along with computer-aided detection (CAD). FINDINGS: The breasts are heterogeneously dense, which may obscure small masses (ACR BI-RADS breast composition Category c). There are no significant masses, abnormal calcifications, or other abnormalities. MM/MM tomosynthesis screening BI IMPRESSION: No mammographic evidence of malignancy. ASSESSMENT: BI-RADS BI-RADS 1 - Negative RECOMMENDATION: Routine annual mammography screening. 1 year F/U This examination should not preclude the clinical evaluation of a suspicious palpable abnormality. This patient's information was entered into a reminder system with a target due date for their next mammogram. Electronically signed by: Maude Jimenez DO 11/06/2024 09:35 PM EDT
[2024-11-01 08:51] LABS: Appearance Urine Clear; Color Urine Yellow; Glucose Urine UA Negative (Negative); Leukocyte Esterase Urine Negative (Negative); Nitrite Urine Negative (Negative); Specific Gravity - Urine >= 1.030 (1.005-1.025); UMIC TRIGGER UA YES; Urine Blood Small (1+) (Negative); Urine Ketones Negative (Negative); Urine Protein Negative (Neg-Trace)
[2024-11-01 09:12] LABS: Bacteria Urine None Seen (None Seen); Hyaline Casts Urine 0-2 /LPF (0-2); RBC Urine 0-2 /HPF (0-2); Squamous Epithelial Cell Urine 0-2 /HPF (0-2); WBC Urine 0-5 /HPF (0-5)
[2024-11-01 09:19] LABS: Alanine Aminotransferase 21 U/L (0-31); Albumin Level 4.2 g/dL (3.5-5.0); Alkaline Phosphatase 52 U/L (39-117); Anion Gap 12 (12-20); Aspartate Amino Transferase 37 U/L (5-31); Bilirubin Total 0.4 mg/dL (0.0-1.0); Blood Urea Nitrogen 14 mg/dL (9-16); Calcium 9.2 mg/dL (8.4-10.2); Carbon Dioxide 25 mmol/L (22-29); Chloride 108 mmol/L (96-108); Cholesterol 235 mg/dL (<200); Estimated Glomerular Filt Rate > 60; Glucose Fasting 90 mg/dL (60-99); Potassium 4.5 mmol/L (3.3-5.1); Sodium 140 mmol/L (135-145); Total Protein 7.7 g/dL (6.5-8.0); Triglycerides 85 mg/dL (<150)
[2024-11-01 09:44] LABS: Creatinine Urine 268.02 mg/dL; Microalbum/Creatinine Ratio Ur 5.2 ug/mg cr (<30)
[2024-11-01 10:03] LABS: HDL Cholesterol 95 mg/dL (>40); LDL Cholesterol Calculated 123 mg/dL (<100); TSH reflex Free T4 3.52 uIU/mL (0.32-4.0)
== END 2024-11-01 07:14 | disposition home or self-care (01) ==
LOC: HO.MAMMO 07:13
PROVIDERS: PCP Family Medicine; Visit Provider Family Medicine
DX: Z12.31 Encounter for screening mammogram for malignant neoplasm of breast (principal); Z00.00 Encounter for general adult medical examination without abnormal findings; I10 Essential (primary) hypertension
CPT/HCPCS: 36415; 77063; 77067; 80053; 80061; 81001; 82043; 82570; 84443

== ENCOUNTER → 2024-11-01 07:30 | Outpatient (BNV) | payer OTHER, SELFPAY | PROVIDERS: PCP Family Medicine; Visit Provider Internal Medicine | DX: Z12.31 Encounter for screening mammogram for malignant neoplasm of breast (principal) | CPT/HCPCS: 77063; 77067 ==

== ENCOUNTER 2024-11-10 11:41 | Outpatient (AMB) | payer OTHER, SELFPAY ==
--- NOTE | 2024-11-10 11:37 | A.OFFPC_ITS ---
Intake Visit Reasons: f/u chronic conditions, labs Tool Design Drafter Required: No Allergies kiwi [KIWI] Allergy (Severe, Verified 11/10/24 11:37) THROAT SWELLING artur [ARTUR] Allergy (Severe, Verified 11/10/24 11:37) THROAT SWELLING pineapple [PINEAPPLE] Allergy (Severe, Verified 11/10/24 11:37) THROAT SWELLING Medication List - Last Reconciled 11/10/24 by Alberto Alvarez MD atorvastatin 20 mg PO BEDTIME 90 days bupropion HCl 75 mg PO BID calcium carbonate 500 mg PO DAILY 30 days cholecalciferol (vitamin D3) 50 mcg PO DAILY cyclobenzaprine 10 mg PO TID PRN 7 days fluticasone propionate 50 mcg/actuation 1 spray intranasal DAILY 90 days gabapentin 400 mg PO DAILY 30 days gabapentin 200 mg (2 x 100 mg) PO DAILY 90 days lorazepam 0.5 mg PO DAILY PRN 28 days Tobacco use date assessed: 08/24/24 Dental Screening Dental Screen Date: 08/24/24 HPI f/u chronic conditions, labs HPI Details 58 y/o female presents to f/u CPE-labs, chronic conditions via telemedicine. Labs drawn 11/01/24. Reviewed labs with pt. Triglycerides 85. TC 235. LDL 123. HDL 95. Had ongoing mild anemia from labs drawn in September. Hx of elevated AST. She had been following up with physiatry for cervicalgia. 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 Angel Tolbert, Thelma Townsend, David Francisco and colleagues, with an educational adrianna from [employer]. Review of Systems Const Denies chills, Denies fatigue, Denies fever(s), Denies headache(s) and Denies weakness ENT Denies dizziness and Denies headache(s) Card Denies dyspnea Resp Denies cough, Denies dyspnea, Denies wheezing and Denies other (shortness of breath) Musc Denies numbness and Denies tingling Neuro Denies dizziness, Denies headache(s), Denies numbness, Denies tingling and Denies weakness Psych Denies anxiety and Denies depression Endo Denies fatigue Aller/Immun Denies wheezing Physical exam (Primary Care) Tobacco/Smoking Status: Tobacco use Status Tobacco use date assessed 08/24/24 11/10/24 11:38 Patient Tobacco Use Status Former Tobacco user 11/10/24 11:38 Tobacco use type Cigarette 11/10/24 11:38 e-Cigarette/Vaping Use Never Used 11/10/24 11:38 Thrive Assessment: Date of Thrive Assessment Date Thrive assessed 08/24/24 11/10/24 11:38 Telehealth Telehealth Telehealth Platform: Telephone Location of provider rendering services: practice address Location of patient: address on file Patient Identification confirmed using: Name, : Yes Telehealth method: voice only Patient verbally consented to treatment: Yes Patient verbally consented to billing insurance company: Yes Patient informed of any privacy concerns related to visit: Yes Minutes spent on Phone/Video with Pt.: 12 Coding Level of Care Code Tele Est Pt Level 2 (26920) Diagnoses Anemia D64.9 Cervicalgia M54.2 Hyperlipidemia E78.5 Elevated liver enzymes R74.8 Assessment & Plan Assessment & Plan (1) Anemia: Code(s): D64.9 - Anemia, unspecified Category: Medical Plan: Stable Has?been?followed?by?Hematology- Oncology?and?feels?that?unless?she?becomes?symptomatic?or?has?significant?change s?in?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 (2) Cervicalgia: Code(s): M54.2 - Cervicalgia Category: Medical Plan: Gradually?improving Pt saw physiatry?and?they?went?over?exercises?and?activities?that?she?can?continue?to?p erform?to?hopefully?continue?improvement. She?will?let?know?if?she?has?any?set?backs. (3) Hyperlipidemia: Code(s): E78.5 - Hyperlipidemia, unspecified Category: Medical Plan: LDL?cholesterol?has?risen?above?goal?less?than?100 She?says?that?she?had?been?taking?atorvastatin?daily?and?switched?to?about?every ?other?day She?will?resume?taking?daily We?can?recheck?lipids?with?next?blood?draw (4) Elevated liver enzymes: Code(s): R74.8 - Abnormal levels of other serum enzymes Category: Medical Plan: Mild?elevation?in?her?liver?enzymes.??She?has?not?been?gaining?weight,? she?avoid?Tylenol?and?does?not?drink?alcohol She?does?note?that?she?has?not?been?drinking?as?much?water?and?has?been?working? outside?in?the?heat Urine?studies?also?note?that?she?has?been?as?in?the?concentrated She?will?increase?her?water?intake Will?recheck?liver?enzymes?with?next?blood?draw Orders: Orders Complete Blood Count Auto Diff Today D64.9 - Anemia, unspecified, Z00.00 - Encounter for general adult medical examination without abnormal findings Vitamin D 25-OH Total Today E55.9 - Vitamin D deficiency, unspecified, M85.80 - Other specified disorders of bone density and structure, unspecified site Lipid Panel Today E78.00 - Pure hypercholesterolemia, unspecified, Z00.00 - Encounter for general adult medical examination without abnormal findings Comprehensive Nixon. Panel Fast Today E78.00 - Pure hypercholesterolemia, unspecified, Z00.00 - Encounter for general adult medical examination without abnormal findings
--- OUTSIDE RECORDS SUMMARY | 2024-11-10 12:48 | XMS_ITS | Clinical Summary ---
Author Organization [facility] [place] [address] [place] [address] Care Team Providers Care Lieutenant Governor Name Role Phone Unavailable Primary Care Provider [...]
--- OUTSIDE RECORDS SUMMARY | 2024-11-10 12:48 | XMS_ITS | Clinical Summary ---
Author Organization [facility] Address [address] [place] [address] Care Team Providers Care Remelt Sugar Boiler Name Role Phone Pcp, No Primary Care Provider Unavailabl e Allergies No known active allergies Medications traMADol (ULTRAM) 50 MG tablet Take 1 tablet (50 mg total) by mouth 3 times daily (every 8 hours) as needed for moderate pain or severe pain. 9 tablet 4 Active ondansetron (ZOFRAN-ODT) 4 MG disintegrating tablet Take 1 tablet (4 mg total) by mouth 3 times daily (every 8 hours) as needed for nausea or vomiting. Place tablet on tongue to dissolve. 10 tablet 4 Active gabapentin (NEURONTIN) 100 MG capsule Take 7 capsules (700 mg total) by mouth nightly. 21 capsule 4 Active Social History Tobacco Use Types Packs/Day Years Used Date Smoking Tobacco: Never Smokeless Tobacco: Never Tobacco Cessation:Counseling Given: Not Answered Alcohol Use Standard Drinks/Week Comments Never 0 (1 standard drink = 0.6 oz pur e alcohol) Comments No Sex and Gender Information Value Date Recorded Sex Assigned at Female 12/03/2023 2:04 PM EDT Legal Sex Female 12:54 PM EDT Gender Identity Female 12/03/2023 3:24 [...] Zoster (Shingles) Vaccine (1 of 2) 2014 COVID-19 Vaccine (1 - season) 2024 Influenza Vaccine 01/27/2025 Insurance [facility] Care Teams Remelt Sugar Boiler Relationship Specialty Start Date End Date Pcp, No PCP - General General Medicine 12/04/23
--- OUTSIDE RECORDS SUMMARY | 2024-11-10 12:48 | XMS_ITS | Data Portability ---
Author Organization [place] [facility], Main Office Address [address] [place] [address] Care Team Providers Care Stockroom Keeper Name Role Phone BETO ANTHONY Primary Care [...] cervical collar. We have fitted her a Jerauld collar for stabilization. The patient is quite [...] 3 view 2023 024 [email or web address] 3 Radiology [facility] ([facility]), [address], [place], [address], 4 10:24:19 MRI, cervical spine, w/o contrast 2023 [facility]24 [email or web address] ([facility]), [address], [place], [address], 4 10:24:18 XR, cervical spine, 4 or 5 view 2023 024 [email or web address] ([facility]), [address], [place], [address], 4 09:58:32 Medication Orders None recorded. Patient TargetsNo targets recorded. Patient InstructionsNo instructions recorded. Reason for Referral None Reported. Results Created Date Observation Date Name Description Value Unit Range Abnormal Flag Note LastModifiedBy Organization Detail LastModifiedTime 12/16/19 24 12/04/2023 XR, cervi benito spine , 4 or 5 view No observ ation record ed. [facility] ([facility]) [address], [place], [address], 12/18/2023 12:35:09 12/17/19 24 12/17/2023 xr cervi [...] best images obtain ed. Unknow n ARRAY( [id number]) ARRAY( [id number]) ARRAY( [id number] 6198) ARRAY( [id number] [id number]) ARRAY( [id number]) ARRAY( [id number] 6460) ARRAY( [id number]) [facility] ([facility] Central Scheduling) Any [facility], [place], [address], 12/18/2023 12:35:03 Result Notes None recorded. Problems Name Problem SNOMED Code Status Onset Date Resolution Date Notes Provider Name and Address Organization Details Recorded Time Closed fracture of seventh cervical vertebra 379512873 Active 024 Drake Bass MD [address] [place], [address] , [place] [facility] 4 13:02:07 Neck pain 74263986 Active 024 Drake Bass MD [address] [place], [address] , [place] [facility] 4 13:02:12 Fracture of cervical spine 418710976 Active 024 Drake Bass MD [address] [place], [address] , [place] [facility] 4 14:48:45 Seizure disorder 159138164 Active 024 Drake Bass MD [address] [place] [address], [address] , [place] [facility] 4 11:12:29 Problem Notes None recorded. Procedures Surgical History Date Name Laterality Status Provider Name and Address Organization Details Recorded Time tonsillectomy completed Drake Bass MD [address] [place], [address], [place] [facility] 12/04/2023 12:21:11 Imaging Results Imaging Date Name Status LastModified by Organiz ation Details LastModified Time 12/04/2023 XR, cervical spine, 4 or 5 view completed [facility] ([facility]) [address] [place] [address], [place], [address], 12/18/2023 12:35:09 12/17/2023 xr cervical spine AP & lat only completed [facility] ([facility] Central [facility]) [facility], [place], [address], 12/18/2023 12:35:03 Procedure Notes None recorded. Medical [...] Updated DateTime 12/04/2023 167.64 cm 26.5 kg/m2 51367.15 mike Bass MD [address] [place] [address], [address], [place] [facility] [employer] 12/04/2023 12:18:47 Date Recorded Body height Body mass index (BMI) Body weight Provider Name and Address Organization Details Last Updated DateTime 12/18/2023 167.64 cm 26.5 kg/m2 58284.15 mike Bass MD [address] [place] [address], [address], [place] [facility] [employer] 12/18/2023 10:58:15 Social History Question Answer Notes LastModified by Organizat ion Details LastModified Time Tobacco Smoking Status Former Smoker Drake Bass MD [address] [place] [address], [address], [place] [facility] [employer] 12/04/2023 12:20:14 Are You Blind Or Do You Have Difficulty Seeing? No Information not available 12/04/2023 Are You Deaf Or Do You Have Serious Difficulty Hearing? 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 16+yearssince lastcigarette Information not available 12/04/2023 Do You Work [...] You Smoke? No Information not available 12/04/2023 Has Tobacco Cessation Counseling Been Provided? Yes Information not available 12/04/2023 On What Date Was Tobacco Cessation Counseling Provided? 12/04/2023 Information not available 12/04/2023 How Many Years Have You Smoked Tobacco? 10 Information not available 12/04/2023 Do You Have Difficulty Walking Or Climbing Stairs? No Information not available 12/04/2023 Are You Currently In School? No Information not available 12/04/2023 Sex: Unknown Functional Status Question Answer Note LastModified by Organizat ion Details LastModified Time Do you use any illicit or recreational drugs? No Information not available 12/04/2023 Do you or have you ever used any other forms of tobacco or nicotine? No Information not available 12/04/2023 What is your level of alcohol consumption? None Information not available 12/04/2023 Are you currently employed? Yes Information not available 12/04/2023 Do you have transportation difficulties? No Information not available 12/04/2023 Do you have difficulty doing errands alone? No Information not available 12/04/2023 Are you able to care for yourself? 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 not available 12/04/2023 Do you have [...] Note 754 Drake Bass MD Main Office [address] [place] [phone] 12/04/2023 12:01:15 12/18/2023 09:58:32 Closed fracture of seventh cervical vertebra 682661912 S12.600A Neck pain 92931611 M54.2 783 Drake Bass MD Main Office [address] [place] [address] 12/18/2023 10:12:59 03/03/2024 10:24:18 Fracture of cervical spine 036094348 S12.9XXD Closed fra cture of seventh cervical vertebra 827978500 S12.600A Neck pain 24257255 M54.2 Seizure disorder 4331052 02 G40.909 Health Concerns Section Related Observation LastModified by Organization Detai ls LastModified Time None Recorded Concern Status LastModified by Organization Details LastModified Time None Recorded Advance Directives Directive None Recorded Payers Encounter Date Sequence Insurance Name Policy Number Policy Ramirez Covered Member ID Ramirez Member ID Guarantor Name 12/04/2023 1 [facility] [id number] Elena L Tastad [id number] Linee Perroncel 12/18/2023 1 [facility] [id number] Elena L Tastad [id number] Linee Perroncel Notes Date Note Type Note [...] in the upper extremity. Drake Bass MD [address] [place] [address], [phone], [place] [employer] [place] [employer] 12/04/2023 13:08:05 12/18/2023 text/html This is a [...] recovery of her senses Drake Bass MD [address] [place] [address], [phone], [place] [employer] 12/18/2023 11:17:52 OBGyn Episode No OBEpisode recorded.
--- OUTSIDE RECORDS SUMMARY | 2024-11-10 12:48 | XMS_ITS | Encounter Summary ---
Author Organization [facility] Address [address] [place] [address] Care Team Providers Care Binder Technician Name Role Phone Unavailable Primary Care Provider Unavailabl e Prior Encounters Date Type Department Care Team Description 07/18/2019 Converted 13x Documents [facility] [address] [place] [address] <No scans attached> 07/18/2019 Converted 13x Documents [facility] [address] [facility] , [facility] [address] [place] [address] <No scans attached> 07/18/2019 Converted CPS Chart Documents [facility] [address] [place] [address] <No scans attached> 07/18/2019 Converted CPS Chart Documents [facility] [address] [place] [address] <No scans attached> 07/18/2019 Converted CPS Chart Documents [facility] [address] [facility] [address] [place] [address] <No scans attached> 07/18/2019 Converted 13x Documents [facility] [address] [place] [address] <No scans attached> Plan of Treatment Not [...] 8 ENDODONTIC THERAPY, PREMOLAR TOOTH (EXCLUDING FINAL SYNAGOGUE) Routine 06/24/2011 1:00 AM MST 4 ENDODONTIC THERAPY, PREMOLAR TOOTH (EXCLUDING FINAL SYNAGOGUE) Routine 06/24/2011 1:00 AM MST PROPHYLAXIS - [...] 4 ENDODONTIC THERAPY, PREMOLAR TOOTH (EXCLUDING FINAL SYNAGOGUE) Routine 04/01/2011 1:00 AM MDT 8 ENDODONTIC THERAPY, ANTERIOR TOOTH (EXCLUDING FINAL SYNAGOGUE) Routine 04/01/2011 1:00 AM MDT 4 LIMITED [...] DIF COMPOSITE FILLING Routine 010 1:00 AM [facility] 22 ML COMPOSITE FILLING Routine 06/25/20 10 1:00 AM [facility] 11 MF COMPOSITE FILLING Routine 06/25/20 10 1:00 AM [facility] 6 ML COMPOSITE FILLING Routine 0 1:00 AM [facility] 6 DL COMPOSITE FILLING Routine 0 1:00 AM [facility] 10 L COMPOSITE FILLING Routine 0 1:00 AM [facility] 7 L COMPOSITE FILLING Routine 06/25/2010 1:00 AM [facility] Visit Diagnoses Not on file
--- OUTSIDE RECORDS SUMMARY | 2024-11-10 12:48 | XMS_ITS | Clinical Summary ---
Author Organization [facility] Address [address] [place] [address] Care Team Providers Care Nipping Machine Operator Name Role Phone Unknown, Primary Care Provider [...] age to complete this topic Care Teams Nipping Machine Operator Relationship Specialty Start Date End Date Unknown, PCP - General 12/04/23
== END 2024-11-10 17:05 ==
LOC: HO.HMCFM 11:41
PROVIDERS: PCP Family Medicine; Visit Provider Family Medicine
DX: D64.9 Anemia, unspecified (principal); M54.2 Cervicalgia; E78.5 Hyperlipidemia, unspecified; R74.8 Abnormal levels of other serum enzymes

== ENCOUNTER → 2024-11-10 11:41 | Outpatient (BNVA) | payer OTHER, SELFPAY | PROVIDERS: PCP Family Medicine; Visit Provider Family Medicine | DX: Z13.89 Encounter for screening for other disorder (principal) ==

== ENCOUNTER 2025-02-07 07:58 | Outpatient (AMB) | payer OTHER, SELFPAY ==
--- OUTSIDE RECORDS SUMMARY | 2025-02-07 08:02 | XMS_ITS | Clinical Summary ---
Author Organization [facility] Address [address] [place] [address] Care Team Providers Care Registered Nurse Maternity Name Role Phone Unavailable Primary Care Provider [...]
--- OUTSIDE RECORDS SUMMARY | 2025-02-07 08:02 | XMS_ITS | Clinical Summary ---
Author Organization [facility] Address [address] [place] [address] Care Team Providers Care Industrial Psychology Professor Name Role Phone Unknown, Primary Care Provider [...] Due Date Last Done Comments Hepatitis C Screening 1964 COVID-19 Vaccine (#1) 05/18/1965 Depression Screening 1976 Preventative Health Evaluation 1982 DTap / Tdap / Td (1 - Tdap) 11/16/1983 Cervical Cancer Screening (P ap Smear) 1985 Colon Cancer Screening (Colonoscopy) 2009 Breast Cancer Screening (Mammogram) 2014 Shingrix-Zoster Vaccine (1 of 2) 2014 Influenza Vaccine (#1) 2025 RSV Adult > 60+ Yrs or Pregn ant (1 - 1-dose 75+ series) 11/16/2039 Hepatitis B Vaccines Aged Out No long er eligible based on patient's age to complete this topic Pneumococcal Vaccine Aged Out No long er eligible based on patient's age to complete this topic RSV Ped < 20 months Aged Out No longe r eligible based on patient's age to complete this topic Care Teams Industrial Psychology Professor Relationship Specialty Start Date End Date Unknown, PCP - General 12/04/23
--- OUTSIDE RECORDS SUMMARY | 2025-02-07 08:02 | XMS_ITS | Clinical Summary ---
Author Organization [facility] Address [address] [place] [address] Care Team Providers Care Automobile Upholsterer Name Role Phone Pcp, No Primary Care [...] 72 12/04/2023 4:59 AM EDT Temperature 36.5 C (97.7 F) 12/04/2023 4:59 AM EDT Respiratory Rate 16 12/04/2023 4:59 AM EDT Oxygen Saturation 100% 12/04/2023 4:59 AM EDT Inhaled Oxygen Concentration - - Weight - - Height - - Body Mass Index - - Plan of Treatment Health Maintenance Due Date Last Done Comments Hepatitis C Virus Screening 1964 HIV Screening 1977 DTaP/Tdap/Td Vaccines (1 - Tdap) 11/16/1983 Pap Smear (Ages 21-65) 1985 Mammogram 2004 Colonoscopy 2009 Pneumococcal Vaccines 50+ (1 of 1 - PCV) 2014 Zoster (Shingles) Vaccine (1 of 2) 2014 COVID-19 Vaccine ( - 2023-2 5 season) 2024 Influenza Vaccine 01/27/2025 RSV Vaccine 60 years and old er and Patients (1 - 1-dose 75+ series) 11/16/2039 Hepatitis B Vaccines Aged Out No long er eligible based on patient's age to complete this topic [facility] Care Teams Automobile Upholsterer Relationship Specialty Start Date End Date Pcp, No PCP - General General Medicine 12/04/23
--- NOTE | 2025-02-07 08:10 | A.OFFVIS_ITS ---
Vital Signs 02/07/25 08:14 Height 5 ft 6 in Weight 168 lb 4 oz BMI 27.2 BP 110/60 Blood Pressure Location Rt brachial Position Sitting Pulse 68 Pulse Source Pulse Oximeter Pulse Oximetry (%) 99 Oxygen Delivery Method Room Air Intake Visit Reasons: colo screening Intake Note: New pt for recall colonoscopy q10 years. CC; Pt denies any current GI sx or concerns. Pt states that she had mild constipation within the last year and was started on PRN fiber per PCP which has helped. Machine Precision Engraver Required: No Accompanied by: Self / Same As Patient Allergies kiwi (KIWI) Allergy (Severe, Verified 11/10/24 11:37) THROAT SWELLING artur (ARTUR) Allergy (Severe, Verified 11/10/24 11:37) THROAT SWELLING pineapple (PINEAPPLE) Allergy (Severe, Verified 11/10/24 11:37) THROAT SWELLING HPI HPI colo screening: Details: 59 year old? female with past medical history of anemia, osteopenia, hypercholesteremia, back pain, SENTHIL is here today for pre colonoscopy screening.? Patient was sent to us by her PCP.? Last colonoscopy 10 years ago was normal.? Patient denies any gastrointestinal symptoms in the past or at present.? Denies any personal or family history of gastrointestinal disease, colon polyps, or CRC.? Denies history of difficulty with sedation or anesthesia in the past.? Negative for history of sleep apnea.? Denies any history of cardiac, renal, pulmonary, or hepatic disease.?? No history of infectious? diseases like hepatitis A, B, C, HIV or tuberculosis.? Patient is not on any anticoagulation [facility] Medical History Broken ribs Broken ankle Vitamin D deficiency Exercise-induced asthma Atypical chest pain Surgical History (Updated 02/07/25 @ 08:18 by STEVEN Bustillo) History of colonoscopy History of tonsillectomy Family History Mother Mental problem Father Mental problem Substance abuse Social History Household Members: Spouse Housing: House Alcohol intake: never Patient Tobacco Use Status: Former Tobacco user Tobacco use type: Cigarette e-Cigarette/Vaping Use: Never Used Second Hand Smoke Exposure: Yes Substance Use Type: Marijuana service: No Current occupational status: employed 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 Current occupational exposures/hazards: Yes Cognitive needs: No Hearing needs: No Vision needs: No Female Reproductive History Menstrual Age of Menarche: 11 Review of Systems Const Denies weight gain and Denies weight loss ENT Reports no additional complaints, Denies dysphagia and Denies odynophagia Card Reports no additional complaints Resp Reports no additional complaints GI Denies abdominal pain, Denies belching, Denies melena, Denies bloating, Denies change in bowel habits, Reports constipation (occasional), Denies dysphagia, Denies excessive flatus, Denies dyspepsia, Denies heartburn, Denies diarrhea, Denies loose stools, Denies nausea, Denies odynophagia and Denies vomiting Musc Reports no additional complaints Neuro Reports no additional complaints Psych Reports no additional complaints Endo Reports no additional complaints Physical Exam Const General: healthy appearing, no acute distress and well developed Nutritional Appearance: well nourished Orientation/consciousness: patient oriented x3 Resp Effort & Inspection: normal respiratory effort, able to speak in complete sentences, no tracheal deviation and symmetric chest movement Auscultation: clear to auscultation bilaterally Cardio Rate: regular rate GI Inspection: Yes normal to inspection and No distended Palpation (GI): Soft to palpation, not firm, nontender and No hepatosplenomegaly present Auscultation: normal bowel sounds General: Yes no CVA tenderness Back/Spine/Pelvis Back: no CVA tenderness Skin General skin exam: elasticity normal, turgor normal and dry skin Neuro General: patient oriented x3 Psych Appearance: grossly normal Mental Status: mental status grossly normal Assessment & Plan Assessment & Plan (1) Screening for colon cancer: Code(s): Z12.11 - Encounter for screening for malignant neoplasm of colon Category: Medical Plan Patient denies any GI, cardiac or respiratory symptoms.? Denies any issues with anesthesia in the past.? Denies any history of sleep apnea.? No history infectious diseases in the past or present.? Not on any anticoagulation therapy.? No family or personal history of colon cancer or polyps.? Patient denies melena, hematochezia, unintentional weight loss or ribbon like stools.? Discussed at length the pre-procedure,? prep, diet & medications as well as what to expect prior, during and after the procedure.?? Stressed the importance of good bowel prep.? Recommended the use of Vaseline or Calmoseptine OTC & baby wipes with bowel movements to promote comfort.? ?Patient verbalizes understand ing and agrees to plan of care.? She was given the opportunity to ask questions and all questions answered.? We will see her after the procedure.? Medications: New polyethylene glycol 3350 (Miralax) As directed by gastroenterology department at [facility] 238 grams PO ONCE 238 grams 0RF Z12.11 - Encounter for screening for malignant neoplasm of colon bisacodyl (Dulcolax (bisacodyl)) take 4 tabs at noon the day before your colonoscopy 20 mg (4 x 5 mg) PO ONCE 4 tabs 0RF constipation 1 day Z12.11 - Encounter for screening for malignant neoplasm of colon Coding Level of Care Code New Pt Level 3 (04812) Diagnoses Screening for colon cancer Z12.11 Time Spent (min) 40 Comment 30 minutes spent with patient and additional 10 minutes spent reviewing her records
[2025-02-07 08:14] VITALS: BP 110/60; PULSE 68; O2SAT 99; BMI 27.2
== END 2025-02-07 08:46 | disposition home or self-care (01) ==
PROVIDERS: PCP Family Medicine; Visit Provider Nurse Practitioner Family
DX: Z01.818 Encounter for other preprocedural examination (principal); Z12.11 Encounter for screening for malignant neoplasm of colon
CPT/HCPCS: 99203

== ENCOUNTER 2025-02-18 07:41 | Outpatient (REF) | payer OTHER, SELFPAY ==
--- OUTSIDE RECORDS SUMMARY | 2025-02-18 07:43 | XMS_ITS ---
Author Name [facility] Organization [facility] Results Test Name/Text Value Interpretation Date Range Source Potassium SerPl-sCnc 4.2 mmol/L Normal 12/04/2023 3.4 - 5 .3 HHCCT CO2 SerPl-sCnc 22.0 mmol/L Normal 12/04/2023 22 - 33 HH CCT GFR/BSA.pred SerPlBld [id number] 85.0 Normal 12/04/2023 59 - HHCCT BUN/Creat SerPl 16.0 Ratio Normal 12/04/2023 10 - 25 HH CCT Creat SerPl-mCnc 0.8 mg/dL Normal 12/04/2023 0.4 - 1.1 HH CCT Glucose SerPl-mCnc 144.0 mg/dL Above high normal 12/04/2023 65 - 99 HHCCT Sodium SerPl-sCnc 137.0 mmol/L Normal 12/04/2023 136 - 14 5 HHCCT Anion Gap Bld-sCnc 14.0 Normal 12/04/2023 7 - 17 HHCCT BUN SerPl-mCnc 13.0 mg/dL Normal 12/04/2023 8 - [address] Chloride SerPl-sCnc 101.0 mmol/L Normal 12/04/2023 98 - 1 07 HHCCT Calcium SerPl-mCnc 9.8 mg/dL Normal 12/04/2023 8.7 - 10.5 HHCCT Neutrophils/leuk NFr Bld Auto 84.2 % Normal 12/04/2023 HHCCT Imm Granulocytes num Bld Auto 0.02 Thou/uL Normal 12/04/2023 0 - 0.1 HHCCT MCV RBC Auto 94.0 fL Normal 12/04/2023 80 - 100 HHCCT Basophils/leuk NFr Bld Auto 0.3 % Normal 12/04/2023 HHCCT Platelet num Bld Auto 331.0 Thou/uL Normal 12/04/2023 150 - 450 HHCCT MCH RBC Qn Auto 30.4 pg Normal 12/04/2023 27 - [address] WBC num Bld Auto 6.8 Thou/uL Normal 12/04/2023 4 - 11 HHCCT Neutrophils num Bld Auto 5.68 Thou/uL Normal 12/04/2023 2 - 7.5 HHCCT Lymphocytes num Bld Auto 0.65 Thou/uL Below low normal 12/04/2023 1.5 - 4.5 HHCCT Basophils num Bld Auto 0.02 Thou/uL Normal 12/04/2023 0 - 0.2 HHCCT Imm Granulocytes/leuk NFr Bld Auto 0.3 % Normal 12/04/2023 HHCCT MCHC RBC Auto-mCnc 32.5 g/dL Normal 12/04/2023 30 - 36 HHCCT Eosinophil/leuk NFr Bld Auto 0.0 % Normal 12/04/2023 HHCCT Lymphocytes/leuk NFr Bld Auto 9.6 % Normal 12/04/2023 HHCCT PMV Bld Auto 8.7 fL Normal 12/04/2023 7.5 - 12.5 HHCCT RDW RBC Auto-Rto 12.3 % Normal 12/04/2023 11.5 - 14.5 HHCCT Hct VFr Bld Auto 35.7 % Normal 12/04/2023 35 - 47 HH CCT RBC num Bld Auto 3.81 Mil/uL Below low normal 12/04/2023 4 - 5.4 HHCCT Hgb Bld-mCnc 11.6 g/dL Below low normal 12/04/2023 11.7 - 15 .7 HHCCT Monocytes num Bld Auto 0.38 Thou/uL Normal 12/04/2023 0.2 - 1.5 HHCCT Monocytes/leuk NFr Bld Auto 5.6 % Normal 12/04/2023 HHCCT Eosinophil num Bld Auto 0.0 Thou/uL Normal 12/04/2023 0 - 0.7 HHCCT Glucose SerPl-mCnc 93.0 mg/dL Normal 12/03/2023 65 - 99 HHCCT Globulin Ser Calc-mCnc 2.8 g/dL Normal 12/03/2023 1.5 - 3.9 HHCCT BUN/Creat SerPl 17.0 Ratio Normal 12/03/2023 10 - 25 HH CCT Prot SerPl-mCnc 6.9 g/dL Normal 12/03/2023 6.3 - 8.[address] AST SerPl-cCnc 38.0 U/L Normal 12/03/2023 10 - 50 HHCC T ALP SerPl-cCnc 66.0 U/L Normal 12/03/2023 32 - 122 HHCC T BUN SerPl-mCnc 15.0 mg/dL Normal 12/03/2023 8 - [address] Sodium SerPl-sCnc 137.0 mmol/L Normal 12/03/2023 136 - 14 5 HHCCT Anion Gap Bld-sCnc 10.0 Normal 12/03/2023 7 - 17 HHCCT Albumin/Glob SerPl 1.5 Ratio Normal 12/03/2023 1 - 3 HHCCT ALT SerPl-cCnc 22.0 U/L Normal 12/03/2023 10 - 50 HHCC T Bilirub SerPl-mCnc 0.2 mg/dL Normal 12/03/2023 0.2 - 1 HHCCT CO2 SerPl-sCnc 24.0 mmol/L Normal 12/03/2023 22 - 33 HH CCT GFR/BSA.pred SerPlBld [id number] The GFR is not estimated when the age and/or gender are not available. Normal 12/03/2023 59 - HHCCT Albumin SerPl-mCnc 4.1 g/dL Normal 12/03/2023 3.5 - 5 HHCCT Calcium SerPl-mCnc 8.9 mg/dL Normal 12/03/2023 8.7 - 10.5 HHCCT Creat SerPl-mCnc 0.9 mg/dL Normal 12/03/2023 0.4 - 1.1 HH CCT Chloride SerPl-sCnc 103.0 mmol/L Normal 12/03/2023 98 - 1 07 HHCCT Potassium SerPl-sCnc 3.6 mmol/L Normal 12/03/2023 3.4 - 5 .3 HHCCT INR PPP 0.9 Normal 12/03/2023 HHCCT Prothrombin time 10.5 seconds Normal 12/03/2023 10 - 13.5 HHCCT Anticoagulant OTHER AGENT OR UNKNOWN Normal 12/03/2023 HHCCT Platelet num Bld Auto 259.0 Thou/uL Normal 12/03/2023 150 - 450 HHCCT WBC num Bld Auto 4.9 Thou/uL Normal 12/03/2023 4 - 11 HHCCT Basophils/leuk NFr Bld Auto 0.8 % Normal 12/03/2023 HHCCT Lymphocytes num Bld Auto 1.29 Thou/uL Below low normal 12/03/2023 1.5 - 4.5 HHCCT MCHC RBC Auto-mCnc 32.5 g/dL Normal 12/03/2023 30 - 36 HHCCT RDW RBC Auto-Rto 12.5 % Normal 12/03/2023 11.5 - 14.5 HHCCT RBC num Bld Auto 3.5 Mil/uL Below low normal 12/03/2023 4 - 5.4 HHCCT Lymphocytes/leuk NFr Bld Auto 26.3 % Normal 12/03/2023 HHCCT Eosinophil num Bld Auto 0.12 Thou/uL Normal 12/03/2023 0 - 0.7 HHCCT MCH RBC Qn Auto 30.9 pg Normal 12/03/2023 27 - [address] Imm Granulocytes/leuk NFr Bld Auto 1.2 % Normal 12/03/2023 HHCCT Eosinophil/leuk NFr Bld Auto 2.4 % Normal 12/03/2023 HHCCT PMV Bld Auto 8.3 fL Normal 12/03/2023 7.5 - 12.5 HHCCT Monocytes num Bld Auto 0.41 Thou/uL Normal 12/03/2023 0.2 - 1.5 HHCCT Imm Granulocytes num Bld Auto 0.06 Thou/uL Normal 12/03/2023 0 - 0.1 HHCCT Hgb Bld-mCnc 10.8 g/dL Below low normal 12/03/2023 11.7 - 15 .7 HHCCT MCV RBC Auto 95.0 fL Normal 12/03/2023 80 - 100 HHCCT Neutrophils/leuk NFr Bld Auto 60.9 % Normal 12/03/2023 HHCCT Hct VFr Bld Auto 33.2 % Below low normal 12/03/2023 35 - 47 HHCCT Basophils num Bld Auto 0.04 Thou/uL Normal 12/03/2023 0 - 0.2 HHCCT Monocytes/leuk NFr Bld Auto 8.4 % Normal 12/03/2023 HHCCT Neutrophils num Bld Auto 2.99 Thou/uL Normal 12/03/2023 2 - 7.5 HHCCT Encounters Encounter Type Encounter Reason Primary Diagnosis Location Date Emergency Nausea with vomiting, unspecified Nausea with vomiting, unspecified [facility] 12/04/2023 Emergency Unspecified displaced fracture of seventh cervical vertebra, initial encounter for closed fracture Unspecified displaced fracture of seventh cervical vertebra, initial encounter for closed fracture [facility] 12/03/2023 Care Team Organization Name Specialty Phone Email Start Date End Da te [facility] 12/04/2023 09/14/2024 [facility] NO PCP Primary Care 12/04/2023 [facility] 12/03/2023
--- OUTSIDE RECORDS SUMMARY | 2025-02-18 07:43 | XMS_ITS | Clinical Summary ---
Author Organization [facility] Address [address] [place] [address] Care Team Providers Care Air Conditioning Installer Supervisor Name Role Phone Unknown, Primary Care Provider [...] age to complete this topic Care Teams Air Conditioning Installer Supervisor Relationship Specialty Start Date End Date Unknown, PCP - General 12/04/23
--- OUTSIDE RECORDS SUMMARY | 2025-02-18 07:43 | XMS_ITS | Clinical Summary ---
Author Organization [facility] Address [address] [place] [id number] Care Team Providers Care Bridge Opener Name Role Phone Pcp, No Primary Care [...] patient's age to complete this topic [facility] Care Teams Bridge Opener Relationship Specialty Start Date End Date Pcp, No PCP - General General Medicine 12/04/23
[2025-02-18 08:16] LABS: MANUAL DIFF FLAG NO
[2025-02-18 08:51] LABS: Hematocrit 34.4 % (37.0-47.0); Hemoglobin 11.5 g/dl (12.0-16.0); Imm Gran Abs Auto 0.01 X10*3/uL (0.00-0.03); Imm Gran Pct Auto 0.3 % (0.0-0.4); Lymphocytes Absolute Auto 1.3 X10*3/uL (1.2-4.9); Mean Corpuscular HGB Conc 33.4 g/dl (31.0-35.0); Mean Corpuscular Hemoglobin 31.1 pg (27.0-33.0); Mean Corpuscular Volume 93.0 fL (80.0-98.0); NRBC Abs Auto 0.000 X10*3/uL (0.0-0.012); NRBC Pct Auto 0.0 /100WBC (0.0-0.2); Platelet Count 313 X10*3/uL (160-400); Red Blood Count 3.70 X10*6/uL (4.20-5.50); White Blood Count 3.2 X10*3/uL (4.8-10.8)
[2025-02-18 08:58] LABS: Appearance Urine Clear; Glucose Urine UA Negative (Negative); PH 6.5 (5.0-9.0); Specific Gravity - Urine 1.025 (1.005-1.025); UMIC TRIGGER UA YES
[2025-02-18 09:31] LABS: Alanine Aminotransferase 25 U/L (0-31); Albumin Level 4.2 g/dL (3.5-5.0); Alkaline Phosphatase 53 U/L (39-117); Anion Gap 11 (12-20); Aspartate Amino Transferase 41 U/L (5-31); Blood Urea Nitrogen 17 mg/dL (9-16); Calcium 9.3 mg/dL (8.4-10.2); Carbon Dioxide 26 mmol/L (22-29); Chloride 109 mmol/L (96-108); Cholesterol 192 mg/dL (<200); Estimated Glomerular Filt Rate 55; HDL Cholesterol 88 mg/dL (>40); Potassium 4.7 mmol/L (3.3-5.1); Sodium 141 mmol/L (135-145); Total Protein 7.5 g/dL (6.5-8.0); Triglycerides 46 mg/dL (<150)
== END 2025-02-18 07:42 | disposition home or self-care (01) ==
LOC: HO.LAB 07:41
PROVIDERS: PCP Family Medicine; Visit Provider Family Medicine
DX: Z00.00 Encounter for general adult medical examination without abnormal findings (principal); E78.00 Pure hypercholesterolemia, unspecified; E55.9 Vitamin D deficiency, unspecified; D64.9 Anemia, unspecified; M85.80 Other specified disorders of bone density and structure, unspecified site
CPT/HCPCS: 36415; 80053; 80061; 81001; 82306; 85025

== ENCOUNTER 2025-02-20 09:22 | Outpatient (AMB) | payer OTHER, SELFPAY ==
--- NOTE | 2025-02-20 09:23 | A.OFFPC_ITS ---
Intake Visit Reasons: f/u anemia, labs Allergies kiwi (KIWI) Allergy (Severe, Verified 02/20/25 09:23) THROAT SWELLING artur (ARTUR) Allergy (Severe, Verified 02/20/25 09:23) THROAT SWELLING pineapple (PINEAPPLE) Allergy (Severe, Verified 02/20/25 09:23) THROAT SWELLING Medication List - Last Reconciled 02/20/25 by Alberto Alvarez MD atorvastatin 20 mg PO BEDTIME 90 days bisacodyl (Dulcolax (bisacodyl)) 20 mg (4 x 5 mg) PO ONCE 1 day bupropion HCl 75 mg PO BID calcium carbonate 500 mg PO DAILY 30 days cholecalciferol (vitamin D3) 50 mcg PO DAILY fluticasone propionate 50 mcg/actuation 1 spray intranasal DAILY 90 days gabapentin 200 mg (2 x 100 mg) PO DAILY 90 days gabapentin 400 mg PO DAILY 30 days lorazepam 0.5 mg PO DAILY PRN polyethylene glycol 3350 (Miralax) 238 grams PO ONCE psyllium husk (Natural Daily Fiber) 1.75 grams PO DAILY PRN Tobacco use date assessed: 02/20/25 Dental Screening Dental Screen Date: 02/20/25 Did you have a dental visit in the last 12 months?: Yes Did you have a dental problem in the last 6 months where you did not have access to dental care?: No Was dental information given to patient?: Patient has dentist HPI f/u anemia, labs HPI Details 59 y/o female presents to f/u anemia, la bs. Labs drawn 02/18/25. Reviewed labs with pt. Ongoing mild anemia. Elevated AST of 41. ALT 25. Has been over 2 years since her last liver ultrasound. Triglycerides 46. TC 192. LDL 95. HDL 88. She is on artovastatin 20mg. Reports symptoms of RLS have been coming back. She is on gabapentin and pt notes she has been on ropinirole in the past. 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 1. Little interest or pleasure in doing things: not at all 2. Feeling down, depressed, or hopeless: not at all 3. Trouble falling or staying asleep, or sleeping too much: several days 4. Feeling tired or having little energy: several days 5. Poor appetite or overeating: not at all 6. Feeling bad about yourself - or that you are a failure or have let yourself or your family down: not at all 7. Trouble concentrating on things, such as reading the newspaper or watching television: not at all 8. Moving or speaking so slowly that other people could have noticed. Or the opposite - being so fidgety or restless that you have been moving around a lot more than usual: not at all 9. Thoughts that you would be better off or of hurting yourself in some way: not at all Total score: 2 Source: Developed by Drs. Angel Tolbert, Thelma Townsend, David Francisco and colleagues, with an educational adrianna from [employer]. Thrive Questionnaire Date Thrive assessed: 08/24/24 I am a: Patient What is your living situation today?: I have a steady place to live Within the past 12 months, did the food you bought not last and you didn't have the money to get more?: Never true Within the past 12 months, did you worry whether your food would run out before you got money to buy more?: Never true Do you have trouble paying for medicines?: No Do you have trouble getting transportation to medical appointments?: No Do you have trouble paying your heating and electricity bill?: No Do you have trouble taking care of your child, family member or friend?: No Do you have trouble with day-to-day activities such as bathing, preparing meals, shopping, managing finances, etc.?: No Are you currently unemployed and looking for a job?: No Are you interested in more education?: No Please select the resources that you would like help with: None Currently or been in a relationship where the following occur: No concerns reported THRIVE Score: 0 AUDIT C Alcohol Use Questionnaire (AUDIT-C) 1. How often do you have a drink containing alcohol?: Never 3. How often do you have six or more drinks on one occasion?: Never Total Score: 0 SENTHIL-7 AMB Questionnaire SENTHIL-7 Date SENTHIL - 7 assessed: 08/24/24 Feeling nervous, anxious, or on edge: 0 = Not at all Not being able to stop or control worryin = Not at all Worrying too much about different things: 0 = Not at all Trouble relaxin = Not at all Being so restless that it is hard to sit still: 0 = Not at all Becoming easily annoyed or irritable: 0 = Not at all Feeling afraid as if something awful might happen: 0 = Not at all Total SENTHIL-7 score (0-4 normal; 5-9 mild; 10-14 moderate; 15-21 severe): 0 Source: Developed by Drs. Angel Tolbert, Thelma Townsend, David Francisco and colleagues, with an educational adrianna from [employer]. Review of Systems Const Denies chills, Denies fatigue, Denies fever(s), Denies headache(s) and Denies weakness ENT Denies dizziness and Denies headache(s) Card Denies dyspnea Resp Denies cough, Denies dyspnea, Denies wheezing and Denies other (shortness of breath) Musc Denies numbness and Denies tingling Neuro Denies dizziness, Denies headache(s), Denies numbness, Denies tingling and Denies weakness Psych Denies anxiety and Denies depression Endo Denies fatigue Aller/Immun Denies wheezing Physical exam (Primary Care) Tobacco/Smoking Status: Tobacco use Status Tobacco use date assessed 02/20/25 02/20/25 09:25 Patient Tobacco Use Status Former Tobacco user 02/20/25 09:25 Tobacco use type Cigarette 02/20/25 09:25 e-Cigarette/Vaping Use Never Used 02/20/25 09:25 PHQ-9: PHQ-9 Score PHQ-9: Total score 2 02/20/25 09:59 Thrive Assessment: Date of Thrive Assessment Date Thrive assessed 08/24/24 02/20/25 09:25 Currently or been in a relationship where the following occur: No concerns reported Telehealth Telehealth Telehealth Platform: Telephone Location of provider rendering services: practice address Location of patient: address on file Patient Identification confirmed using: Name, : Yes Telehealth method: voice only Patient verbally consented to treatment: Yes Patient verbally consented to billing insurance company: Yes Patient informed of any privacy concerns related to visit: Yes Minutes spent on Phone/Video with Pt.: 14 Coding Level of Care Code Tele Est Pt Level 2 (25463) Diagnoses Hyperlipidemia E78.5 Mild anemia D64.9 Elevated AST (SGOT) R74.01 RLS (restless legs syndrome) G25.81 Assessment & Plan Assessment & Plan (1) Hyperlipidemia: Code(s): E78.5 - Hyperlipidemia, unspecified Category: Medical Plan: Lipids now well controlled with atorvastatin Continue current medications (2) Mild anemia: Code(s): D64.9 - Anemia, unspecified Category: Medical Plan: Ongoing mild anemia Unchanged Has seen Hematology-Oncology and they do not feel she needs follow-up unless she is symptomatic (3) Elevated AST (SGOT): Code(s): R74.01 - Elevation of levels of liver transaminase levels Category: Medical Plan: Mild elevation in AST She had an ultrasound 2021 which was negative elastography also negative. Will recheck ultrasound in repeat liver enzymes Hydrate well (4) RLS (restless legs syndrome): Code(s): G25.81 - Restless legs syndrome Category: Medical Plan: Ongoing restless legs She has been using gabapentin wants to wean off this She can continue to wean down. She will let me know she would like to try another medication. She had use ro pinirole in the past which she said this had stopped working. Could consider ropinirole again or permanent Paxil. Could also consider tricyclic antidepressants. Orders: Orders US abdomen garcia w elastography Today R74.01 - Elevation of levels of liver transaminase levels UA CC w/rflx Micro + Cult Today D64.9 - Anemia, unspecified, Z00.00 - Encounter for general adult medical examination without abnormal findings Comprehensive [place]. Panel Fast Today R74.01 - Elevation of levels of liver transaminase levels, Z00.00 - Encounter for general adult medical examination without abnormal findings Medications: New lorazepam 0.5 mg PO DAILY PRN 10 tabs 0RF anxiety 28 days Discontinued lorazepam Discontinued Reason: Doctor's Order 0.5 mg PO DAILY PRN 10 tabs 0RF anxiety gabapentin Discontinued Reason: Patient no longer taking 200 mg (2 x 100 mg) PO DAILY 90 days 180 caps 3RF
--- OUTSIDE RECORDS SUMMARY | 2025-02-20 10:05 | XMS_ITS | Clinical Summary ---
Author Organization [facility] Address [address] [place] [address] Care Team Providers Care Striping Machine Operator Name Role Phone Unknown, Primary [...] age to complete this topic Care Teams Striping Machine Operator Relationship Specialty Start Date End Date Unknown, PCP - General 12/04/23
--- OUTSIDE RECORDS SUMMARY | 2025-02-20 10:05 | XMS_ITS | Clinical Summary ---
Author Organization [facility] Address [address] [place] [id number] Care Team Providers Care Multiskill Operator Name Role Phone Pcp, No Primary Care [...] patient's age to complete this topic [facility] Care Teams Multiskill Operator Relationship Specialty Start Date End Date Pcp, No PCP - General General Medicine 12/04/23
== END 2025-02-20 10:19 | disposition home or self-care (01) ==
LOC: HO.HMCFM 09:22
PROVIDERS: PCP Family Medicine; Visit Provider Family Medicine
DX: E78.5 Hyperlipidemia, unspecified (principal); D64.9 Anemia, unspecified; R74.01 Elevation of levels of liver transaminase levels; G25.81 Restless legs syndrome

== ENCOUNTER 2025-04-13 14:46 | Emergency (ER) | payer OTHER, SELFPAY ==
--- NOTE | ~2025-04-13 | CT_ITS ---
EXAMINATION: CT CERVICAL SPINE WITHOUT CONTRAST CLINICAL INFORMATION: fall. pmh of c7 fracture COMPARISON: None available. TECHNIQUE: CT of the cervical spine was obtained without administration of intravenous contrast. Images were reformatted in axial, sagittal and coronal planes. This CT examination was performed using dose optimization techniques as appropriate, variously including the following: *Automated exposure control *Adjustment of mA and/or kV according to patient size (this includes techniques or standardized protocols for targeted exams where dose is matched to indication/reason for exam; i.e. extremities or head) *Use of iterative reconstruction technique FINDINGS: Alignment and vertebrae: Cervical lordosis is maintained. No subluxation. No acute fractures in the vertebral bodies or posterior elements. Chronic depression of the superior endplate of C7 correlates with provided history of old fracture. Intervertebral discs and endplates: Marginal osteophytes are more prominent at C3-C4 and C5-C6. Craniocervical junction: Normal alignment. Soft tissues: No prevertebral soft tissue thickening. Posterior paraspinal soft tissues are unremarkable. Other findings: Probable prominent intraosseous arachnoid granulations in the included occipital bone. Multilevel degenerative changes throughout the cervical spine with moderate neuroforaminal stenosis on the right at C5-C6. Lung apices are clear. No pneumothorax. CT/CT cervical spine wo IV con IMPRESSION: No acute fracture or subluxation. Electronically signed by: Brian Rea MD 04/13/2025 04:43 PM EDT
--- NOTE | ~2025-04-13 | CT_ITS ---
Examination: CT chest and CT abdomen and pelvis without IV contrast. CLINICAL INDICATION: Fell down the stairs. COMPARISON: Chest x-ray 06/07/2019. TECHNIQUE: 2 mm thin axial and reformatted 3 mm thin sagittal and coronal images of chest without contrast were obtained. Subsequently 5 minute thin axial and reformatted 3 mm thin sagittal and coronal images of abdomen and pelvis were obtained. DLP 2010. One or more of the following dose reduction techniques were used: Automated exposure control, adjustment of the mA kV according to patient size, iterative reconstruction. Unless otherwise specified, incidental findings do not require dedicated imaging follow-up. FINDINGS: CHEST: LUNGS: The lungs are well-expanded and clear acute pneumonic process. There is no pulmonary nodules, mass or consolidation. Dependent bibasilar atelectasis and/or scarring is noted. Pleura: There is no pleural effusion, calcification or thickening. Mediastinum: Thyroid lobes are symmetrical and normal. The central trachea and the bronchi is widely patent. Heart size and the great vessels are normal caliber. No pericardial effusion seen. No abnormal mediastinal lymph nodes. Axilla: No abnormal size exiting lymph nodes seen. The chest wall is unremarkable. Osseous structures: There is compression deformity of T3 and C7 vertebra of indeterminate age. Abdomen and pelvis: Liver, ducts and gallbladder: The liver is normal size, shape and density. No focal lesion or intrahepatic ductal dilatation seen. The gallbladder is unremarkable. Spleen: Unremarkable. Pancreas: Unremarkable. Kidneys and ureters: Unremarkable. GI tract: There is scattered stool and gas in colon without distention. The small bowel loops are normal caliber. Appendix is normal. Lymphovascular structures: The abdominal aorta is normal. No abnormal retroperitoneal lymphadenopathy seen. Abdominal wall: Unremarkable. Pelvis: The uterus is retroverted and appears unremarkable. No free fluid or free air seen. Osseous structures: No aggressive lytic or sclerotic process seen CT/CT abdomen pelvis wo IV con IMPRESSION: No acute cardiopulmonary process seen except for minimal bibasilar atelectasis and/or scarring. No acute intra-abdominal process seen. Mild constipation. Electronically signed by: Ray He MD 04/13/2025 04:34 PM EDT
--- NOTE | ~2025-04-13 | CT_ITS ---
EXAMINATION: CT HEAD WITHOUT CONTRAST CLINICAL INFORMATION: fall down stairs COMPARISON: None available. TECHNIQUE: Contiguous axial imaging was performed from the skull base to vertex without intravenous administration of contrast. This CT examination was performed using dose optimization techniques as appropriate, variously including the following: *Automated exposure control *Adjustment of mA and/or kV according to patient size (this includes techniques or standardized protocols for targeted exams where dose is matched to indication/reason for exam; i.e. extremities or head) *Use of iterative reconstruction technique FINDINGS: Brain parenchyma: No shift of midline structures. No parenchymal hemorrhage, mass effect or evidence of acute territorial infarct. Ventricles and extra-axial spaces: No hydrocephalus. No intraventricular hemorrhage. No extra-axial fluid collection. Calvarium and extracranial structures: No depressed calvarial fracture. No significant soft tissue hematoma. Small mucous retention cyst in the right maxillary sinus. Remaining paranasal sinuses are clear. Mastoid air cells are clear. CT/CT head/brain wo IV con IMPRESSION: No acute intracranial pathology. Electronically signed by: Brian Rea MD 04/13/2025 04:44 PM EDT
[2025-04-13 14:59] VITALS: BP 132/61; PULSE 69; RESP 16; TEMP 35.4; O2SAT 99; BMI 27.2
--- NOTE | 2025-04-13 15:01 | ED_ITS ---
HPI - General Adult General Chief complaint: Neck Pain/Injury Stated complaint: Fall today, history of neck fracture Time Seen by Provider: 04/13/25 16:05 Source: patient Mode of arrival: ambulatory Limitations: no limitations History of Present Illness ED Provider: Yasmin Jackson PA-C HPI narrative: Patient is a 59 year old assigned female at with a history of anemia, HLD, SENTHLI, and C7 cervical fracture presenting to the emergency department today with neck pain and nausea after a fall. Patient states that in November of 2023 she injured her neck - a C7 fracture. Patient states that today she tripped going up a set of stairs and did a somersault. Patient states that she did not lose consciousness and her neck hurts. Patient states that she is nauseous and worried about her neck. Patient states that she wears a collar at baseline because of her previous injury. Patient denies any other complaints at this time. Related Data Home Medications ?Medication ?Instructions ?Recorded ?Confirmed cholecalciferol (vitamin D3) 50 50 mcg PO DAILY 02/20/25 mcg (2,000 unit) capsule psyllium husk 3.4 gram/5.8 gram 1.75 g PO DAILY PRN 02/20/25 oral powder (Natural Daily Fiber) Previous Rx's ?Medication ?Instructions ?Recorded calcium carbonate 500 mg PO DAILY 30 days #30 tabs 01/10/22 fluticasone propionate 50 1 spray intranasal DAILY 90 days 04/21/23 mcg/actuation nasal #48 mL spray,suspension bupropion HCl 75 mg tablet 75 mg PO BID #180 tabs 07/30 10/21 atorvastatin 20 mg tablet 20 mg PO BEDTIME 90 days #90 tabs 12/23/24 bisacodyl 5 mg tablet,delayed 20 mg (4 x 5 mg) PO ONCE 02/07/25 release (Dulcolax (bisacodyl)) constipation 1 day #4 t abs polyethylene glycol 3350 17 238 g PO ONCE #238 grams 0 02/07/25 gram/dose oral powder (Miralax) gabapentin 400 mg capsule 400 mg PO DAILY pain 30 days #30 03/28/25 caps lorazepam 0.5 mg tablet 0.5 mg PO DAILY PRN anxiety 28 04/03/25 days #28 tabs Allergies Allergy/AdvReac Type Severity Reaction Status Date / Time courtney (MARIAWI) Allergy Severe THROAT Verified 04/13/25 15:00 SWELLING artur (ARTUR) Allergy Severe THROAT Verified 04/13/25 15:00 SWELLING pineapple (PINEAPPLE) Allergy Severe THROAT Verified 04/13/25 15:00 SWELLING Review of Systems Constitutional: Constitutional: Reports as per HPI Eyes: Eyes: Reports as per HPI ENT: Reports as per HPI Cardiovascular: Cardiovascular: Reports as per HPI Respiratory: Respiratory: Reports as per HPI Gastrointestinal: Gastrointestinal: Reports as per HPI Genitourinary: Genitourinary: Reports as per HPI Musculoskeletal: Musculoskeletal: Reports as per HPI Integumentary/Breasts: Skin/Breast: Reports as per HPI Neurologic: Reports as per HPI Psychiatric: Psychiatric: Reports as per HPI Endocrine: Endocrine: Reports as per HPI Hematologic/Lymphatic: Hematologic/Lymphatic: Reports as per HPI Allergic/Immunologic: Allergic/Immunologic: Reports as per HPI PMF Past Medical History Attestation statement: The following information was validated with the patient. Source: old records reviewed and nursing notes reviewed Medical History Broken ribs Broken ankle Vitamin D deficiency Exercise-induced asthma Atypical chest pain Surgical History History of colonoscopy History of tonsillectomy Family History Family History Mother Mental problem Father Mental problem Substance abuse Social History Social History Household Members: Spouse Housing: House Alcohol intake: never Patient Tobacco Use Status: Former Tobacco user Tobacco use type: Cigarette Smoked in Last 30 Days: No e-Cigarette/Vaping Use: Never Used Second Hand Smoke Exposure: Yes Use of substances other than those prescribed or required for medical reasons: No Substance Use Type: Marijuana Advance Directives: No Advance Directives Information Provided: No Do you have a plan to hurt others: No Plan service: No Current occupational status: employed 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 Current occupational exposures/hazards: Yes Cognitive needs: No Hearing needs: No Vision needs: No Physical Exam ED Vital Signs: Vital Signs - 24 hr 04/13/25 14:59 04/13/25 15:26 04/13/25 17:20 Temperature 95.7 F L Pulse Rate 69 65 72 Respiratory Rate 16 18 20 Blood Pressure 132/61 126/65 136/69 Pulse Oximetry 99 99 100 Oxygen Delivery Method Room Air Room Air Room Air 04/13/25 17:30 Temperature 0 F L Pulse Rate 72 Respiratory Rate 20 Blood Pressure 136/69 Pulse Oximetry 100 Oxygen Delivery Method Room Air BMI result Body Mass Index 27.2 Const General: cooperative, no acute distress, alert and awake Nutritional Appearance: well nourished Orientation/consciousness: patient oriented x3 HENMT Head: Yes normal to inspection and Yes atraumatic Ears: hearing grossly normal bilaterally and external ears normal General nose exam: Normal external nose present, no nasal discharge noted and no epistaxis Face and sinus: Yes normal facial exam, No abrasion and No laceration Mouth: Normal oral and palatal mucosa present, no drooling and no muffled voice Eyes General: appearance normal, both eyes and all related structures Periorbital: periorbital findings normal Eyelids: Yes eyelids normal Conjunctivae: conjunctivae normal Pupils: Equal, round and reactive pupils present EOM: EOMs intact bilaterally Neck Other: Patient in a collar for her previous C7 fracture Resp Effort & Inspection: normal respiratory effort and able to speak in complete sentences Neuro General: patient oriented x3, moves all extremities and CN's II-XI intact bilaterally Cranial nerves: Yes Equal, round and reactive pupils present Cognition (Neuro): normal cognition Extrem General: Yes normal to inspection, Yes full ROM and Yes capillary refill normal Psych Appearance: grossly normal Mental Status: mental status grossly normal Affect: normal affect Attitude: cooperative Thought process: Normal thought process present Thought content: Normal thought content present Insight: Good insight present (Psych) Course Course Course Narrative: RME; 59 yold female presents to the ED for falling down stairs. Patient fell down 4 stairs and hit the back of the neck. Patient has history of cervical 7 fracture so she put her old brace on her neck. Imaging ordered. Patient has had vasovagal syncopal episode in triage. Patient is brought to the ED Medications Administered Discontinued Medications Generic Name Dose Route Start Last Admin Trade Name Freq PRN Reason Stop Dose Admin Lorazepam 1 mg 04/13/25 17:02 04/13/25 17:22 Lorazepam 1 Mg Tablet PO 04/13/25 17:03 1 mg ONCE ONE Administration Ondansetron HCl 4 mg 04/13/25 14:58 04/13/25 15:22 Ondansetron Odt 4 Mg TabSigrid BRUSH 04/13/25 14:59 4 mg ONCE ONE Administration Medical Decision Making Medical Decision Making [facility] Narrative: Patient is a 59 year old assigned female at with a history of anemia, HLD, SENTHIL, and C7 cervical fracture presenting to the emergency department today with neck pain and nausea after a fall. Patient's physical exam was as noted in the physical exam portion of this note. Patient's head, c-spine, chest, and abdomen/pelvis CTs ordered by the provider in triage showed no acute process. I explained my physical exam findings as well as all test results to the patient. I answered all questions asked by the patient. When I went to re-assess the patient, she stated she was feeling very anxious and requested something to calm down. Patient was given a dose of PO Ativan. I stressed the importance of the patient taking her medication as directed (either prescribed or as the over the counter packaging recommends). I stressed the importance of the patient following up with her primary care provider. I stressed the importance of the patient returning to the emergency department immediately if her symptoms were to worsen or if she were to develop any dizziness, shortness of breath, difficulty breathing, chest pain, blurry vision, loss of vision, nausea, vomiting, abdominal pain, fever, chills, back pain, or any other complaints. Patient verbalized agreement and understanding with this treatment plan and discharge. Differential Diagnosis Differential Diagnoses: The differential diagnosis associated with the presentation includes Trip and fall Fall Acute on chronic neck pain Anxiety Admission/Observation Consideration of admission/observation: Escalation of care including admission/observation considered Patient would have been admitted to the hospital had her work up had any findings where hospital admission was appropriate and her clinical presentation warranted hospital admission. Independent Interpretation I performed an independent interpretation of an: CT Scan Interpretation: My interpretation is in agreement with the radiologist's impression of these imaging studies. Report Number: [id number]: Total DLP = 0.00 mGy-cm Reason for Exam: fall down stairs Examination: CT chest and CT abdomen and pelvis without IV contrast. CLINICAL INDICATION: Fell down the stairs. COMPARISON: Chest x-ray 06/07/2019. TECHNIQUE: 2 mm thin axial and reformatted 3 mm thin sagittal and coronal images of chest without contrast were obtained. Subsequently 5 minute thin axial and reformatted 3 mm thin sagittal and coronal images of abdomen and pelvis were obtained. DLP 2010. One or more of the following dose reduction techniques were used: Automated exposure control, adjustment of the mA kV according to patient size, iterative reconstruction. Unless otherwise specified, incidental findings do not require dedicated imaging follow-up. FINDINGS: CHEST: LUNGS: The lungs are well-expanded and clear acute pneumonic process. There is no pulmonary nodules, mass or consolidation. Dependent bibasilar atelectasis and/or scarring is noted. Pleura: There is no pleural effusion, calcification or thickening. Mediastinum: Thyroid lobes are symmetrical and normal. The central trachea and the bronchi is widely patent. Heart size and the great vessels are normal caliber. No pericardial effusion seen. No abnormal mediastinal lymph nodes. Axilla: No abnormal size exiting lymph nodes seen. The chest wall is unremarkable. Osseous structures: There is compression deformity of T3 and C7 vertebra of indeterminate age. Abdomen and pelvis: Liver, ducts and gallbladder: The liver is normal size, shape and density. No focal lesion or intrahepatic ductal dilatation seen. The gallbladder is unremarkable. Spleen: Unremarkable. Pancreas: Unremarkable. Kidneys and ureters: Unremarkable. GI tract: There is scattered stool and gas in colon without distention. The small bowel loops are normal caliber. Appendix is normal. Lymphovascular structures: The abdominal aorta is normal. No abnormal retroperitoneal lymphadenopathy seen. Abdominal wall: Unremarkable. Pelvis: The uterus is retroverted and appears unremarkable. No free fluid or free air seen. Osseous structures: No aggressive lytic or sclerotic process seen CT/CT abdomen pelvis wo IV con IMPRESSION: No acute cardiopulmonary process seen except for minimal bibasilar atelectasis and/or scarring. No acute intra-abdominal process seen. Mild constipation. Electronically signed by: Ray He MD 04/13/2025 04:34 PM EDT RP Dictated By: Ray He MD Signed By: Electronically signed by Ray He MD 04/13/25 1634 Report Number: [id number]: Total DLP = 2312.00 mGy-cm Reason for Exam: fall. pmh of c7 fracture EXAMINATION: CT CERVICAL SPINE WITHOUT CONTRAST CLINICAL INFORMATION: fall. pmh of c7 fracture COMPARISON: None available. TECHNIQUE: CT of the cervical spine was obtained without administration of intravenous contrast. Images were reformatted in axial, sagittal and coronal planes. This CT examination was performed using dose optimization techniques as appropriate, variously including the following: *Automated exposure control *Adjustment of mA and/or kV according to patient size (this includes techniques or standardized protocols for targeted exams where dose is matched to i ndication/reason for exam; i.e. extremities or head) *Use of iterative reconstruction technique FINDINGS: Alignment and vertebrae: Cervical lordosis is maintained. No subluxation. No acute fractures in the vertebral bodies or posterior elements. Chronic depression of the superior endplate of C7 correlates with provided history of old fracture. Intervertebral discs and endplates: Marginal osteophytes are more prominent at C3-C4 and C5-C6. Craniocervical junction: Normal alignment. Soft tissues: No prevertebral soft tissue thickening. Posterior paraspinal soft tissues are unremarkable. Other findings: Probable prominent intraosseous arachnoid granulations in the included occipital bone. Multilevel degenerative changes throughout the cervical spine with moderate neuroforaminal stenosis on the right at C5-C6. Lung apices are clear. No pneumothorax. CT/CT cervical spine wo IV con IMPRESSION: No acute fracture or subluxation. Electronically signed by: Brian Rea MD 04/13/2025 04:43 PM EDT RP Dictated By: Brian Rea MD Signed By: Electronically signed by Brian Rea MD 04/13/25 1643 Report Number: [id number]: Total DLP = 0.00 mGy-cm Reason for Exam: fall down stairs EXAMINATION: CT HEAD WITHOUT CONTRAST CLINICAL INFORMATION: fall down stairs COMPARISON: None available. TECHNIQUE: Contiguous axial imaging was performed from the skull base to vertex without intravenous administration of contrast. This CT examination was performed using dose optimization techniques as appropriate, variously including the following: *Automated exposure control *Adjustment of mA and/or kV according to patient size (this includes techniques or standardized protocols for targeted exams where dose is matched to indication/reason for exam; i.e. extremities or head) *Use of iterative reconstruction technique FINDINGS: Brain parenchyma: No shift of midline structures. No parenchymal hemorrhage, mass effect or evidence of acute territorial infarct. Ventricles and extra-axial spaces: No hydrocephalus. No intraventricular hemorrhage. No extra-axial fluid collection. Calvarium and extracranial structures: No depressed calvarial fracture. No significant soft tissue hematoma. Small mucous retention cyst in the right maxillary sinus. Remaining paranasal sinuses are clear. Mastoid air cells are clear. CT/CT head/brain wo IV con IMPRESSION: No acute intracranial pathology. Electronically signed by: Brian Rea MD 04/13/2025 04:44 PM EDT Dictated By: Brian Rea MD Signed By: Electronically signed by Brian Rea MD 04/13/25 1644 Radiology Impression Discussion of test interpretation with radiology: I have reviewed the radiologist's reading. Discharge Plan Discharge Clinical Impression: Fall Patient Disposition: Home, Self-Care Instructions: Fall Prevention (ED) Additional Instructions: Your imaging was unremarkable. IF you are prescribed home medications and/or you are taking over the counter medications at home - it is very important you continue to do so as prescribed / directed unless told otherwise. Follow up with your primary care provider. Return to the emergency department immediately if your symptoms worsen or if you develop any numbness, tingling, dizziness, shortness of breath, difficulty breathing, chest pain, blurry vision, loss of vision, nausea, vomiting, abdominal pain, fever, chills, back pain, or any other complaints. Please see the information below about our Patient Portal. If you are not yet enrolled in the [facility] Patient Portal, you will receive an enrollment email invitation following your visit to any [facility] setting. You may also self-enroll in the Patient Portal by visiting our website: [email or web address] The following information is required to access the Patient Portal: - Your [facility] [place] Number - Your personal home email address (must match what is in your electronic medical record, Registration staff can assist with this) - Name - Date of Capabilities of the Patient Portal: - Message some providers - View upcoming appointments - Access your health summary, medical history, and visit history - View current conditions and allergies - View procedure and lab results - View your medications, including guidelines, side effects, and precautions - Complete pre-appointment questionnaires requested by your provider - Ready summary reports of your office visits and procedures To access the Patient Portal Mobile [employer], follow these directions: - Search [facility] in the [employer] Store or [employer] Store - Download the [facility] - Search for [facility] - Enter your login/password Prescriptions: No Action calcium carbonate 500 mg calcium (1,250 mg) tablet 500 mg PO DAILY 30 Days Qty: 30 2RF fluticasone propionate 50 mcg/actuation spray,suspension 1 spray intranasal DAILY 90 Days Qty: 48 0RF bupropion HCl 75 mg tablet 75 mg PO BID Qty: 180 1RF atorvastatin 20 mg tablet 20 mg PO BEDTIME 90 Days Qty: 90 3RF gabapentin 400 mg capsule 400 mg PO DAILY 30 Days Qty: 30 1RF lorazepam 0.5 mg tablet 0.5 mg PO DAILY PRN (Reason: anxiety) 28 Days Qty: 28 0RF cholecalciferol (vitamin D3) 50 mcg (2,000 unit) capsule 50 mcg PO DAILY Natural Daily Fiber 3.4 gram/5.8 gram powder 1.75 g PO DAILY PRN bisacodyl [Dulcolax (bisacodyl)] 5 mg tablet,delayed release (DR/EC) 20 mg PO ONCE 1 Days Qty: 4 0RF Rx Instructions: take 4 tabs at noon the day before your colonoscopy polyethylene glycol 3350 [Miralax] 17 gram/dose powder 238 g PO ONCE Qty: 238 0RF Rx Instructions: As directed by gastroenterology department at [facility] Referrals: Alberto Alvarez MD [Primary Care Provider, Internal Medicine] Interventions: ED Discharge Assessment Last Done: 04/13/25 17:30 Discharge Date/Time: 04/13/25 17:30 Print Language: Mongolian
[2025-04-13 15:26] VITALS: BP 126/65; PULSE 65; RESP 18; O2SAT 99
[2025-04-13 17:20] VITALS: BP 136/69; PULSE 72; RESP 20; O2SAT 100
[2025-04-13 17:30] VITALS: BP 136/69; PULSE 72; RESP 20; TEMP -17.7; TEMP 0; O2SAT 100
--- OUTSIDE RECORDS SUMMARY | 2025-04-13 19:28 | XMS_ITS | Clinical Summary ---
Author Organization [facility] Address [address] [place] [address] Care Team Providers Care Drum Sander Name Role Phone Unknown, Primary Care Provider [...] age to complete this topic Care Teams Drum Sander Relationship Specialty Start Date End Date Unknown, PCP - General 12/04/23
--- OUTSIDE RECORDS SUMMARY | 2025-04-13 19:28 | XMS_ITS | Clinical Summary ---
Author Organization [facility] Address [address] [place] [address] Care Team Providers Care Javascript Developer Name Role Phone Unavailable Primary Care [...]
--- OUTSIDE RECORDS SUMMARY | 2025-04-13 19:28 | XMS_ITS | Clinical Summary ---
Author Organization [facility] Address [address] [place] [id number] Care Team Providers Care Intrusion Analyst Name Role Phone Pcp, No Primary Care [...] Vaccine (1 of 2) 2014 Influenza Vaccine 01/27/2025 COVID-19 Vaccine ( - 2023-2 5 season) 2025 RSV Vaccine 50 years and old er and Patients (1 - 1-dose 75+ series) 11/16/2039 Hepatitis B Vaccines Aged Out No long er eligible based on patient's age to complete this topic [facility] Care Teams Intrusion Analyst Relationship Specialty Start Date End Date Pcp, No PCP - General General Medicine 12/04/23
--- OUTSIDE RECORDS SUMMARY | 2025-04-13 19:28 | XMS_ITS | Data Portability ---
Author Organization [facility], Main Office Address [address] [place] [address] Care Team Providers Care International Trade Specialist Name Role Phone BETO ANTHONY Primary Care Provider [phone] Assessment Encounter Date Assessment Date Assessment LastModified [...] cervical collar. We have fitted her a [place] collar for stabilization. The patient is quite [...] spine, 2 or 3 view 2023 024 becca 3 Radiology [facility] ([facility]), [address], [place], [address], 4 10:24:19 MRI, cervical spine, w/o contrast 2023 024 [facility] ([facility]), [address], [place], [address], 4 10:24:18 XR, cervical spine, 4 or 5 view 2023 024 [facility] ([facility]), [address], [place], [address], 4 09:58:32 Medication Orders None recorded. Patient TargetsNo targets recorded. Patient InstructionsNo instructions recorded. Reason for Referral None Reported. Results Created Date Observation Date Name Description Value Unit Range Abnormal Flag Note LastModifiedBy Organization Detail LastModifiedTime 12/16/19 24 12/04/2023 XR, cervi benito spine , 4 or 5 view No observ ation record ed. Radiology [facility] ([facility]) [address], [place], [address], 12/18/2023 12:35:09 12/17/19 24 12/17/2023 xr cervi [...] best images obtain ed. Unknow n ARRAY( [id number]) ARRAY( [id number]) ARRAY( [id number]) ARRAY( [id number]) ARRAY( [id number]) ARRAY( [id number]) ARRAY( [id number]) [facility] ([facility] Central Scheduling) Any [facility], [place], [address], 12/18/2023 12:35:03 Result Notes None recorded. Problems Name Problem SNOMED Code Status Onset Date Resolution Date Notes Provider Name and Address Organization Details Recorded Time Closed fracture of seventh cervical vertebra 807024876 Active 024 Drake Bass MD [address] [place] [address], [phone] , [place] [facility] 4 13:02:07 Neck pain 64920544 Active 024 Drake Bass MD [address] [place] [address], [phone] , [place] [facility] 4 13:02:12 Fracture of cervical spine 348236486 Active 024 Drake Bass MD [address] [place] [address], [phone] , [place] [facility] 4 14:48:45 Seizure disorder 836702155 Active 024 Drake Bass MD [address] [place] [address], [phone] , [place] [facility] 4 11:12:29 Problem Notes None recorded. Procedures Surgical History Date Name Laterality Status Provider Name and Address Organization Details Recorded Time tonsillectomy completed Drake Bass MD [address] [place] [address], [phone], [place] [facility] [employer] [employer] 12/04/2023 12:21:11 Imaging Results None recorded. Procedure Notes None recorded. Medical Equipment None [...] Updated DateTime 12/04/2023 167.64 cm 26.5 kg/m2 64923.15 g Drake Bass MD [address] [place] [address], [phone], [place] [facility] 12/04/2023 12:18:47 Date Recorded Body height Body mass index (BMI) Body weight Provider Name and Address Organization Details Last Updated DateTime 12/18/2023 167.64 cm 26.5 kg/m2 74986.15 mike Bass MD [address] [place] [address], [phone], [place] [facility] [employer] 12/18/2023 10:58:15 Social History Question Answer Notes LastModified by Organizat ion Details LastModified Time Tobacco Smoking Status Former Smoker Drake Bass MD [address] [place] [address], [phone], [place] [facility] 12/04/2023 12:20:14 Are You Blind Or Do [...] 12/04/2023 Are you able to care for yourself independently? 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 No Information not available 12/04/2023 Mental Status [...] Diagnosis SNOMED-CT Code Diagnosis ICD10 Code Diagnosis IMO Codes Diagnosis Note 754 Drake Bass MD Main Office [address] [place] [phone] 12/04/2023 12:01:15 12/18/2023 09:58:32 Closed fracture of seventh cervical vertebra 500434585 S12.600A Neck pain 08278051 M54.2 783 Drake Bass MD Main Office [address] [place] [phone] 12/18/2023 10:12:59 03/03/2024 10:24:18 Fracture of cervical spine 159647687 S12.9XXD Closed fra cture of seventh cervical vertebra 550966254 S12.600A Neck pain 73798696 M54.2 Seizure disorder 3074499 02 G40.909 Health Concerns Section Related Observation LastModified by Organization Detai ls LastModified Time None Recorded Concern Status LastModified by Organization Details LastModified Time None Recorded Advance Directives Directive None Recorded Payers Insurance Date Sequence Insurance Name Policy Number Policy Ramirez Covered Member ID Ramirez Member ID Guarantor Name 12/29/2023 1 [employer] (PPO) [id number] Elena Landeros [id number] Linee Perroncel Notes Date Note Type Note [...] in the upper extremity. Drake Bass MD [address] [place] [address], [phone], [place] [facility] 12/04/2023 13:08:05 12/18/2023 text/html This is a [...] recovery of her senses Drake Bass MD [address] [place] [address], [phone], [place] [facility] 12/18/2023 11:17:52 OBGyn Episode No OBEpisode recorded.
--- OUTSIDE RECORDS SUMMARY | 2025-04-13 19:28 | XMS_ITS | Encounter Summary ---
Author Organization [facility] Address [address] [place] [address] Care Team Providers Care Television Installer Name Role Phone Unavailable Primary Care Provider Unavailabl e Prior Encounters Date Type Department Care Team Description 07/18/2019 Converted 13x Documents [facility] [address] [place] [address] <No scans attached> 07/18/2019 Converted 13x Documents [facility] [address] [facility] [address] [facility] [place] [address] [place] [address] <No scans attached> 07/18/2019 Converted CPS Chart Documents [facility] [address] [place] [address] <No scans attached> 07/18/2019 Converted CPS Chart Documents [facility] [address] [place] [address] <No scans attached> 07/18/2019 Converted CPS Chart Documents [facility] [address] [facility] [address] [place] [address] <No scans attached> 07/18/2019 Converted 13x Documents [facility] [address] [place] [address] <No scans attached> Plan of Treatment Not [...] 1:00 AM MDT 8 BONE REPLACEMENT GRAFT RETAINED NATURAL TOOTH FIRST SITE IN QUADRANT Routine 09/22/2011 1:00 AM MDT ADDITIONAL X-RAY Routine 09/22/2011 1:00 AM MDT SINGLE X-RAY Routine 09/22/2011 1:00 AM MDT 8 ENDODONTIC THERAPY, PREMOLAR TOOTH (EXCLUDING FINAL SAMARITAN) Routine 06/24/2011 1:00 AM MST 4 ENDODONTIC THERAPY, PREMOLAR TOOTH (EXCLUDING FINAL SAMARITAN) Routine 06/24/2011 1:00 AM MST PROPHYLAXIS - [...] 4 ENDODONTIC THERAPY, PREMOLAR TOOTH (EXCLUDING FINAL SAMARITAN) Routine 04/01/2011 1:00 AM MDT 8 ENDODONTIC THERAPY, ANTERIOR TOOTH (EXCLUDING FINAL SAMARITAN) Routine 04/01/2011 1:00 AM MDT 4 LIMITED [...] 1:00 AM MDT OCCLUSAL GUARD DELIVERY Routine 11/15/19 11 1:00 AM MDT OCCLUSAL GUARD SOFT APPLIANCE, FULL ARCH Routine 11/01/2010 1:00 [...] AM MST IPE Routine 06/25/2010 1:00 AM [facility] PANORAMIC RADIOGRAPHIC IMAGE Routine 06/25/2010 1:00 AM [facility] BITEWINGS - FOUR RADIOGRAPHIC IMAGES Routine 06/25/2010 [...] DIF COMPOSITE FILLING Routine 010 1:00 AM [facility] 22 ML COMPOSITE FILLING Routine 06/25/20 10 1:00 AM [facility] 11 MF COMPOSITE FILLING Routine 06/25/20 10 1:00 AM [facility] 6 ML COMPOSITE FILLING Routine 0 1:00 AM [facility] 6 DL COMPOSITE FILLING Routine 0 1:00 AM [facility] 10 L COMPOSITE FILLING Routine 0 1:00 AM [facility] 7 L COMPOSITE FILLING Routine 06/25/2010 1:00 AM [facility] Visit Diagnoses Not on file
== END 2025-04-13 17:30 | disposition home or self-care (01) ==
PROVIDERS: Emergency Provider Emergency Medicine; PCP Family Medicine
DX: M54.2 Cervicalgia (principal); R55 Syncope and collapse; D64.9 Anemia, unspecified; W10.9XXA Fall (on) (from) unspecified stairs and steps, initial encounter; Z91.81 History of falling; Y93.89 Activity, other specified; Y92.89 Other specified places as the place of occurrence of the external cause; Y99.8 Other external cause status; Z87.81 Personal history of (healed) traumatic fracture; Z79.899 Other long term (current) drug therapy
CPT/HCPCS: 70450; 71250; 72125; 74176; 99284

== ENCOUNTER → 2025-04-13 14:58 | Outpatient (BNV) | payer OTHER, SELFPAY | PROVIDERS: Emergency Provider Emergency Medicine; PCP Family Medicine; Visit Provider Radiology Body Imaging | DX: K59.00 Constipation, unspecified (principal); R07.9 Chest pain, unspecified; W19.XXXA Unspecified fall, initial encounter; Z04.3 Encounter for examination and observation following other accident | CPT/HCPCS: 70450; 71250; 72125; 74176 ==

== ENCOUNTER 2025-04-24 07:15 | Day surgery (SDC) | payer OTHER, SELFPAY ==
--- OUTSIDE RECORDS SUMMARY | 2025-03-06 08:53 | XMS_ITS | Clinical Summary ---
Author Organization [facility] Address [address] [place] [address] Care Team Providers Care Software Database Architect Name Role Phone Unknown, Primary Care Provider [...] age to complete this topic Care Teams Software Database Architect Relationship Specialty Start Date End Date Unknown, PCP - General 12/04/23
--- NOTE | 2025-04-20 08:43 | HO.ANESPROP2 ---
Documented by User: Lissett Hale NP 04/20/25 08:44 HPI - Anesthesia Eval Consult details Narrative: 59 yr old male for colonoscopy PMF Active Problems Active Problems: All Active Problems (Updated 04/14/25 @ 00:00 by Doyle Dakendra) Elevated AST (SGOT) (Acute) Muscle spasm (Acute) Cervicalgia (Acute) Anemia (Chronic) Vision changes (Acute) Fall from height of greater than 3 feet (Acute) Seizure-like activity (Acute) Rib fracture (Acute) C7 cervical fracture (Acute) Well woman exam (Acute) Osteopenia (Acute) Mild anemia (Acute) Hypercholesterolemia (Acute) Unilateral hearing loss (Acute) Screening for osteoporosis (Acute) Breast cancer screening by mammogram (Acute) Screening for colon cancer (Acute) Screening for cervical cancer (Acute) Adult general medical exam (Acute) Low back pain (Acute) Back pain (Acute) Laboratory examination ordered as part of a routine general medical examination (Acute) Hyperlipidemia (Acute) Overweight (BMI 25.0-29.9) (Acute) Post-menopausal (Acute) RLS (restless legs syndrome) (Acute) SENTHIL (generalized anxiety disorder) (Acute) Screening for hypothyroidism (Acute) Screening for diabetes mellitus (DM) (Acute) Muscle spasm of back (Acute) Past Medical History Medical History (Updated 04/24/25 @ 07:50 by Martina Ashraf RN) Restless leg syndrome Anxiety Depression Elevated cholesterol Broken ribs Broken ankle Vitamin D deficiency Exercise-induced asthma Atypical chest pain Family History Family History Mother Mental problem Father Mental problem Substance abuse Surgical History Surgical History (Updated 04/24/25 @ 07:27 by Martina Ashraf RN) Hx of gynecological procedure History of colonoscopy History of tonsillectomy Social History Social History Household Members: Spouse Housing: House Alcohol intake: never Patient Tobacco Use Status: Former Tobacco user Tobacco use type: Cigarette e-Cigarette/Vaping Use: Never Used Second Hand Smoke Exposure: Yes Use of substances other than those prescribed or required for medical reasons: Yes Substance Use Type: Marijuana Substance Use Type Other:: occassional gummy to sleep--[place] 1-2 wks ago Substance Use Frequency: Occasionally Are you DNR?: No Advance Directives: No Advance Directives Information Provided: Yes service: No Current occupational status: employed 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 Current occupational exposures/hazards: Yes Cognitive needs: No Hearing needs: No Vision needs: No Meds Allergies Allergy/AdvReac Type Severity Reaction Status Date / Time kiwi (KIWI) Allergy Severe THROAT Verified 04/24/25 07:50 SWELLING artur (ARTUR) Allergy Severe THROAT Verified 04/24/25 07:50 SWELLING pineapple (PINEAPPLE) Allergy Severe THROAT Verified 04/24/25 07:50 SWELLING Home Medications ?Medication ?Instructions ?Recorded ?Confirmed ?Last Taken ?Type cholecalciferol (vitamin D3) 50 50 mcg PO DAILY 10/18/20 04/20/25 Unknown History mcg (2,000 unit) capsule gabapentin 400 mg capsule 400 mg PO BEDTIME restless leg 04/24/25 04/24/25 Unknown History syndrome Documented by User: Jessie Mckeon MD 04/24/25 08:10 [facility] Past Medical History Medical History (Updated 04/24/25 @ 07:50 by Martina Ashraf RN) Restless leg syndrome Anxiety Depression Elevated cholesterol Broken ribs Broken ankle Vitamin D deficiency Exercise-induced asthma Atypical chest pain Family History Family History Mother Mental problem Father Mental problem Substance abuse Family history of problems with anesthesia: No Surgical History Surgical History (Updated 04/24/25 @ 07:27 by Martina Ashraf RN) Hx of gynecological procedure History of colonoscopy History of tonsillectomy History of Problems with Anesthesia: No Social History Social History Household Members: Spouse Housing: House Alcohol intake: never Patient Tobacco Use Status: Former Tobacco user Tobacco use type: Cigarette e-Cigarette/Vaping Use: Never Used Second Hand Smoke Exposure: Yes Use of substances other than those prescribed or required for medical reasons: Yes Substance Use Type: Marijuana Substance Use Type Other:: occassional gummy to sleep--[place] 1-2 wks ago Substance Use Frequency: Occasionally Are you DNR?: No Advance Directives: No Advance Directives Information Provided: Yes service: No Current occupational status: employed 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 Current occupational exposures/hazards: Yes Cognitive needs: No Hearing needs: No Vision needs: No Meds Allergies Allergy/AdvReac Type Severity Reaction Status Date / Time kiwi (KIWI) Allergy Severe THROAT Verified 04/24/25 07:50 SWELLING artur (ARTUR) Allergy Severe THROAT Verified 04/24/25 07:50 SWELLING pineapple (PINEAPPLE) Allergy Severe THROAT Verified 04/24/25 07:50 SWELLING Home Medications ?Medication ?Instructions ?Recorded ?Confirmed ?Last Taken ?Type cholecalciferol (vitamin D3) 50 50 mcg PO DAILY 10/18/20 04/20/25 Unknown History mcg (2,000 unit) capsule gabapentin 400 mg capsule 400 mg PO BEDTIME restless leg 04/24/25 04/24/25 Unknown History syndrome Exam Airway Mallampati Class: II (top 4 teeth caps) TM Dist: >3cm Neck ROM: Full Heart: rrr Lungs: cta Assessment and Plan Assessment Anesthesia Assessment: Anesthesia Plan Discussed and Chart Reviewed Final Anesthetic Review Family History of Problems with Anesthesia: No History of Problems with Anesthesia: No NPO: Yes ASA Class: II Final Preanesthetic Review: No Changes in Pt Med Stat, Meds/Allgs Chart Reviewed and Consent Obtained/Reviewed Patient Risk: Low Procedure Risk: Low Anesthetic Plan Anesthetic Plan: MAC: Disposition: Standard PACU
[2025-04-20 11:32] VITALS: BMI 27.1
[2025-04-24 07:28] VITALS: BMI 27.2
[2025-04-24 07:41] VITALS: BP 120/61; PULSE 72; RESP 15; TEMP 36.6; O2SAT 99
[2025-04-24] MEDS: Lactated Ringers 1,000 ML 100 ML IVCONT (07:49)
--- NOTE | 2025-04-24 08:02 | MHC.SHP ---
Pre-Procedural Eval Section A - 24 Hr Update-Section A only Date of Service: 04/24/25 The patient is an INPATIENT: No The patient has been examined within 24 hours of the surgical procedure. The History & Physical has been completed within 30 days and I have reviewed it.: No Section B - Complete if H&P > 30 days Chief Complaint: screening Relevant Family History (Specify if Yes): No Relevant Social History: Tobacco Use (Former smoker) Present Medications: see Short Stay Collaborative assessment Medical History: Significant History (anemia, osteopenia, hypercholesteremia, back pain, SENTHIL ) History of Previous Operations: Relevant previous surgery/procedure and date(s) (History of colonoscopy, history of tonsillectomy) Allergies: Allergies Allergy/AdvReac Type Severity Reaction Status Date / Time kiwi (KIWI) Allergy Severe THROAT Verified 04/24/25 07:50 SWELLING artur (ARTUR) Allergy Severe THROAT Verified 04/24/25 07:50 SWELLING pineapple (PINEAPPLE) Allergy Severe THROAT Verified 04/24/25 07:50 SWELLING Review of Systems Sugical H&P ROS: Negative: Constitution, Cardiovascular, Respiratory and Gastrointestinal Exam Surgical H&P Exam: Normal: Heart, Normal: Lungs, Normal: Extremities and Normal: Abdomen Plan Diagnosis/Plan: Unchanged I have reviewed the history and physical and performed a pertinent physical examination on my patient. No changes have occurred unless specified. Time Spent With Patient Time: Total time managing care of this patient today ____ minutes.
--- NOTE | 2025-04-24 09:03 | HO.OPN-COLON ---
Colonoscopy Operative Note Operative Note Date of Service: 04/24/25 Narrative: COLONOSCOPY TILL CECUM Pre-op diagnosis: Colon cancer screening (2nd colon). Post-op diagnosis:? Diverticulosis Endoscopist:? Elvis Medina MD Anesthesia:?MAC Consent: Indications for the procedure and potential complications of bleeding, perforation, reaction to medications and missed diagnosis were discussed with the patient and informed consent was obtained. Instrument: Olympus PCF H 190 L variable stiffness pediatric colonoscope Monitoring: Vital signs and clinical assessment, intermittent blood pressure monitoring, continuous EKG monitoring, Pulse oximetry and Carbon Dioxide monitoring were done throughout the procedure. Please see anesthesia flowsheet. Colon withdrawl time was 14 minutes. Procedure: The patient was placed in the left lateral decubitis position and pre-procedure medications were administered. After a digital rectal examination of the ano-rectum, the video colonoscope was inserted into the rectum and advanced through the colon to the cecum. The colonoscope was slowly withdrawn in a retrograde panoramic fashion and the colon mucosa was carefully examined including a retroflexed view of the rectum. Findings and interventions are described below. Procedure Difficulty: without difficulty Findings: Terminal Ileum: Not evaluated Cecum: Normal Ascending Colon: Normal Transverse Colon: Normal Descending Colon: Normal Sigmoid Colon: Moderate diverticulosis Rectum: Normal Ano-rectum: Normal Colon preparation: Excellent after some irrigation. [place] Bowel Preparation Scale Right colon; 3 Transverse colon: 3 Left colon; 3 (0 = Unprepared colon segment with mucosa not seen due to solid stool that cannot be cleared. 1 = Portion of mucosa of the colon segment seen, but other areas of the colon segment not well seen due to staining, residual stool and/or opaque liquid. 2 = Minor amount of residual staining, small fragments of stool and/or opaque liquid, but mucosa of colon segment seen well. 3 = Entire mucosa of colon segment seen well with no residual staining, small fragments of stool or opaque liquid) Impression and Post Procedure Diagnosis: Colonoscopy Findings: No polyps were detected Moderate diverticulosis seen in the sigmoid colon Plan: Repeat Colonoscopy in 10 years. Above findings were reviewed with the patient and relevant handouts were given and the discharge area.
[2025-04-24 09:05] VITALS: BP 112/85; PULSE 72; RESP 16; TEMP 36.4; O2SAT 100
[2025-04-24 09:20] VITALS: BP 122/61; PULSE 68; RESP 16; TEMP 36.2; O2SAT 100
== END 2025-04-24 09:42 | disposition home or self-care (01) ==
PROVIDERS: PCP Family Medicine; Visit Provider Internal Medicine Gastroenterology
PROC: 0DJD8ZZ Inspection of Lower Intestinal Tract, Via Natural or Artificial Opening Endoscopic (ICD-10-PCS; CPT 45378; principal; 2025-04-24 08:30)
DX: Z12.11 Encounter for screening for malignant neoplasm of colon (principal); K57.30 Diverticulosis of large intestine without perforation or abscess without bleeding
CPT/HCPCS: 45378; J2704

== ENCOUNTER → 2025-04-24 07:15 | Outpatient (BNV) | payer OTHER, SELFPAY | PROVIDERS: PCP Family Medicine; Visit Provider Internal Medicine Gastroenterology | DX: Z12.11 Encounter for screening for malignant neoplasm of colon (principal); K57.30 Diverticulosis of large intestine without perforation or abscess without bleeding | CPT/HCPCS: 45378 ==

== ENCOUNTER 2025-05-15 07:52 | Outpatient (REF) | payer OTHER, SELFPAY ==
--- NOTE | ~2025-05-15 | US_ITS ---
EXAMINATION: US ABDOMEN LIMITED WITH LIVER ELASTOGRAPHY CLINICAL INFORMATION: Elevation of liver transaminase levels. COMPARISON: Ultrasound abdomen limited with liver last C5 04/17/2022. TECHNIQUE: Real-time imaging of the abdominal viscera. Noninvasive ultrasound liver fibrosis assessment is performed using Orin ElastPQ point quantification shear wave elastography (pSWE) with a 5 MHz transducer. Multiple elastography samples are obtained. FINDINGS: PANCREAS: The visualized pancreatic head and body are normal in appearance. The remainder of the pancreas is obscured from visualization by the overlying bowel gas. LIVER: The liver demonstrates normal size, contour and mild increased echogenicity. No focal lesion or intrahepatic biliary duct dilatation. The right lobe measures 14.5 cm in length. The left lobe measures 8.8 cm in length. Shear wave elastography provides a median stiffness of 1.43 m/s (reference: normal median stiffness is 0.81 - 1.22 m/s). The IQR/median stiffness to assess sampling precision is 0.10 (reference: optimal IQR/median stiffness is under 0.3). Previously liver last approximately median stiffness measurement 1.63M/S GALLBLADDER: The gallbladder is physiologically distended without evidence of stones, sludge, polyps, wall thickening or pericholecystic fluid. COMMON BILE DUCT: Normal in caliber measuring 0.2 cm in diameter. RIGHT KIDNEY: No hydronephrosis. No renal calculi or focal parenchymal lesions. The kidney measures 9.6 cm in maximum dimension. FREE FLUID: None seen. US/US abdomen garcia w elastography IMPRESSION: 1. Mild increased liver echogenicity. 2. Elastography: Median liver stiffness measures 1.43 m/s. Since 2021 the median liver stiffness has improved from 1.63 m/s. Electronically signed by: Ray He MD 05/15/2025 09:22 AM [facility]
--- OUTSIDE RECORDS SUMMARY | 2025-05-15 09:09 | XMS_ITS | Clinical Summary ---
Author Organization [facility] Address [address] [place] [address] Care Team Providers Care Benefits Clerk Name Role Phone Unknown, Primary Care Provider [...] age to complete this topic Care Teams Benefits Clerk Relationship Specialty Start Date End Date Unknown, PCP - General 12/04/23
--- OUTSIDE RECORDS SUMMARY | 2025-05-15 09:10 | XMS_ITS | Encounter Summary ---
Author Organization [facility] Address [address] [place] [address] Care Team Providers Care Machine Preservative Filler Name Role Phone Unavailable Primary Care Provider Unavailabl e Prior Encounters Date Type Department Care Team Description 07/18/2019 Converted 13x Documents [facility] [address] [place] [address] <No scans attached> 07/18/2019 Converted 13x Documents [facility] [id number] [facility] [address] [facility] [address] [place] [address] <No scans attached> 07/18/2019 Converted CPS Chart Documents [facility] [address] [place] [address] <No scans attached> 07/18/2019 Converted CPS Chart Documents [facility] [address] [place] [address] <No scans attached> 07/18/2019 Converted CPS Chart Documents [facility] [id number] [facility] [address] [place] [address] <No scans attached> 07/18/2019 Converted 13x Documents [facility] [address] [place] [address] <No scans attached> Plan of Treatment Not [...] 8 ENDODONTIC THERAPY, PREMOLAR TOOTH (EXCLUDING FINAL AMISH) Routine 06/24/2011 1:00 AM MST 4 ENDODONTIC THERAPY, PREMOLAR TOOTH (EXCLUDING FINAL AMISH) Routine 06/24/2011 1:00 AM MST PROPHYLAXIS - [...] 4 ENDODONTIC THERAPY, PREMOLAR TOOTH (EXCLUDING FINAL AMISH) Routine 04/01/2011 1:00 AM MDT 8 ENDODONTIC THERAPY, ANTERIOR TOOTH (EXCLUDING FINAL AMISH) Routine 04/01/2011 1:00 AM MDT 4 LIMITED [...] AM MST IPE Routine 06/25/2010 1:00 AM [facility] PANORAMIC RADIOGRAPHIC IMAGE Routine 06/25/2010 1:00 AM [facility] BITEWINGS - FOUR RADIOGRAPHIC IMAGES Routine 06/25/2010 [...] DIF COMPOSITE FILLING Routine 010 1:00 AM [facility] 22 ML COMPOSITE FILLING Routine 06/25/20 10 1:00 AM [facility] 11 MF COMPOSITE FILLING Routine 06/25/20 10 1:00 AM [facility] 6 ML COMPOSITE FILLING Routine 0 1:00 AM [facility] 6 DL COMPOSITE FILLING Routine 0 1:00 AM [facility] 10 L COMPOSITE FILLING Routine 0 1:00 AM [facility] 7 L COMPOSITE FILLING Routine 06/25/2010 1:00 AM [facility] Visit Diagnoses Not on file
--- OUTSIDE RECORDS SUMMARY | 2025-05-15 09:10 | XMS_ITS | Clinical Summary ---
Author Organization [facility] Address [address] [place] [address] Care Team Providers Care Physical Therapist Name Role Phone Unavailable Primary Care Provider [...]
--- OUTSIDE RECORDS SUMMARY | 2025-05-15 09:11 | XMS_ITS | Clinical Summary ---
Author Organization [facility] Address [address] [place] [id number] Care Team Providers Care Cake Batter Mixer Name Role Phone Pcp, No Primary Care [...] patient's age to complete [facility] Cake Batter Mixer Relationship Specialty Start Date End Date Pcp, No PCP - General General Medicine 12/04/23
== END 2025-05-15 07:53 | disposition home or self-care (01) ==
LOC: HO.US 07:52
PROVIDERS: PCP Family Medicine; Visit Provider Family Medicine
DX: R74.01 Elevation of levels of liver transaminase levels (principal)
CPT/HCPCS: 76705; 76981

== ENCOUNTER → 2025-05-15 07:54 | Outpatient (BNV) | payer OTHER, SELFPAY | PROVIDERS: PCP Family Medicine; Visit Provider Radiology Diagnostic Radiology | DX: K74.00 Hepatic fibrosis, unspecified (principal); R93.2 Abnormal findings on diagnostic imaging of liver and biliary tract | CPT/HCPCS: 76705 ==